=== PATIENT | male | born 1960 | race Caucasian/White ===

== ENCOUNTER 2025-06-22 10:18 | Inpatient (IN) | payer MEDICAID, SELFPAY ==
[2025-06-22] VITALS (7 sets, daily range): BP systolic 118–167; BP diastolic 72–87; PULSE 84–106; RESP 15–20; TEMP 36.9–38.2; O2SAT 95–100; BMI 37.3; BMI 36.9
--- NOTE | 2025-06-22 10:51 | ED.VIS.LOWEX ---
HPI History of Present Illness HPI Narrative: Patient presents with diabetic foot wound to his left great toe that has been getting worse over the past 2 weeks. Patient denies any trauma or injury. Patient saw his primary care physician today who referred him to the emergency department. They noted some redness to his great toe with streaking into his foot. Patient denies any fevers or chills. Patient states he has been having some drainage at the end of his left great toe. Patient states he was doing a lot of walking on vacation 2 weeks ago and developed a blister on the tip of his left great toe. Patient states he has been having some persistent drainage from this area. Patient admits to some tingling into his toe. Patient is unsure of his last tetanus. Chief Complaint: Wound Informant: patient Onset/Context/Timing Onset: Weeks (2) Context: Gradual Onset Timing: Continuous Quality of Pain: Burning Location: Left great toe Worsened by: Nothing Relieved by: Nothing Associated Symptoms Associated Symptoms: Positive for Parasthesia; Negative for Weakness or Loss of Funtion Narrative Tetanus Immunization: Unknown [facility] Medical History (Updated 06/22/25 @ 12:[address] Tommy Damon, ) Hypertension Diabetes Home Medications ?Medication ?Instructions ?Recorded ?Last Taken ?Type lisinopril 20 mg tablet 20 mg PO DAILY #30 tabs 07/01/17 Unknown Rx metformin 500 mg tablet 500 mg PO BID #60 tabs 07/01/17 Unknown Rx Allergy/AdvReac Type Severity Reaction Status Date / Time Penicillins (PCN) Allergy Rash Verified 06/22/25 10:21 Surgical History no surgical history no surgical history Social History Smoking Status: Never smoker ROS ROS ED Constitutional Constitutional ED: Denies chills or fever(s) Eyes Eyes: Denies blurry vision or change in vision ENT ENT ED: Reports sore throat; Denies rhinorrhea Cardiovascular Cardiovascular: Denies chest pain or palpitations Respiratory/Chest Respiratory/Chest: Reports cough; Denies dyspnea Gastrointestinal Gastrointestinal: Reports nausea; Denies vomiting Genitourinary Genitourinary ED: Denies dysuria or hematuria Musculoskeletal Musculoskeletal: Denies back pain or neck pain Integumentary Denies abscess or rash Neurologic Neurologic: Reports paresthesias LLE (Left foot); Denies headache(s) or weakness Allergic/Immunologic Allergic/Immunologic ED: Denies mouth swelling or urticaria EXAM Physical Exam Const Vital Signs: 06/22/25 10:19 06/22/25 11:20 06/22/25 12:00 Temperature 99.2 F H 98.6 F 98.4 F Temperature Source Temporal Oral Oral Pulse Rate 99 96 84 Respiratory Rate 20 H 18 20 H Blood Pressure 118/85 H 144/78 H 148/75 H Blood Pressure Mean 96 100 99 Pulse Ox 98 98 98 Oxygen Delivery Method Room Air Room Air Room Air Positive well nourished and well developed Constitutional Narrative: BMI is 37.3. General Appearance ED: well developed and NAD HEENT Reports moist mucous membranes Neck full ROM and supple Resp normal respiratory effort and clear to auscultation bilaterally Cardio regular rate and regular rhythm GI non-tender and non-distended Palpation: soft Extremity Extremity Narrative: There is an open wound over the distal aspect of the distal phalanx of the left great toe. There is erythema and warmth over the left great toe. There is no active discharge or drainage. There is tenderness to palpation of the distal phalanx. Sensation was intact to light touch in all digits. Capillary refill was less than 2 seconds in all digits. Pedal pulses are equal bilaterally. Neuro oriented x3, CN's II-XII intact bilaterally, moves all extremities and no sensory deficits noted Sensorium / Orientation: alert Motor Exam: strength 5/5 throughout Psych mental status grossly normal MDM MDM MDM Narrative Medical decision making narrative: Differential diagnosis includes cellulitis, diabetic foot wound, osteomyelitis, sepsis, and abscess. X-rays of the left foot will be obtained to assess for osteomyelitis. CBC will be obtained to assess for leukocytosis and anemia. Basic metabolic profile will be obtained to assess for electrolyte abnormality and renal function. Blood cultures will be obtained to assess for sepsis. Serum lactate will be obtained to assess for sepsis. History & Record Review Additional record(s) reviewed:: Prior ED visit Lab Data Attestation: I reviewed the patient's lab results. Lab results narrative: CBC was reviewed. There is a mild leukocytosis of 12.6. There is a slight anemia with a hemoglobin of 12.7 and hematocrit of 38.5. Basic metabolic profile was reviewed. BUN was slightly elevated at 33 and glucose was mildly elevated at 297. Sodium was slightly low at 131. The remainder is within normal limits. Serum lactate was reviewed and was elevated at 2.5. PT with INR and PTT were reviewed. Pro time was 15.2 and INR is 1.2. PTT was normal at 31.0. Labs: Laboratory Results - last 24 hr 06/22/25 11:36 WBC 12.6 H RBC 4.25 L Hgb 12.7 L Hct 38.5 L MCV 90.6 MCH 29.9 MCHC 33.0 RDW Std Deviation 42.3 RDW Coeff of Domenica 12.7 Plt Count 290 MPV 10.2 Immature Gran % (Auto) 0.500 Neut % (Auto) 80.5 H Lymph % (Auto) 12.0 L [place] % (Auto) 6.7 Eos % (Auto) 0.0 Baso % (Auto) 0.3 Absolute Neuts (auto) 10.1 H Absolute Lymphs (auto) 1.51 Nucleated RBC % 0 PT 15.2 H INR 1.2 APTT 31.0 Sodium 131 L Potassium 4.3 Chloride 93 L Carbon Dioxide 23.4 Anion Gap 14 BUN 33 H Creatinine 1.06 Estim Creat Clear Calc 98.58 Est GFR (MDRD) Non-Af 79 BUN/Creatinine Ratio 31.5 H Glucose 297 H Lactic Acid 2.5 H* Calcium 9.3 Radiography Diagnostic Testing: Clinical Impression(s) from Imaging Studies Foot X-Ray 06/22/25 11:06 IMPRESSION: No radiopaque foreign body is seen. Moderate arterial calcification is seen. On the lateral view, normal contour of the Achilles tendon is seen. A moderate inferior calcaneal spur is noted. [id number] degenerative changes of the visualized ankle joint noted. Mild degenerative changes are seen throughout the midfoot, as well as the 1st and especially 2nd tarsal-metatarsal joints. On the oblique view, there is a suggestion of fusion of the 3rd cuneiform with the 3rd metatarsal bone. Forefoot varus is seen. Szfr-rz-mswsmite degenerative changes are seen of the left 1st metatarsophalangeal joint, without significant hallux valgus deformity. No osseous destructive changes noted. No fracture or dislocation is seen. If clinical concern persists, short-term follow-up imaging may be obtained to rule out a currently occult fracture. Reading Location: [id number] X-rays of the left foot were obtained. There are 3 views. On my independent interpretation, there are some degenerative changes of the distal phalanx of the left great toe. There is no acute fracture or dislocation noted. There are other degenerative changes noted. This was interpreted by the radiologist was also independently reviewed by myself. Management Discussion w/another healthcare provider: Hospitalist Treatment and Re-Evaluation Narrative: Patient was given IV fluids. Patient was given a dose of meropenem and vancomycin due to his allergy to penicillin. Patient was advised of his findings. Recommended admission to the hospital. Patient is agreeable with this. Case was discussed with the hospitalist. He will admit the patient to his service. Patient understood and was agreeable with the plan. All questions were answered. Discharge Plan Triage Chief Complaint: Wound ED Provider: Tommy Damon Dx/Rx/DC Orders Clinical Impression: Diabetic foot ulcer, Diabetes, Hypertension, Lactic acidosis Prescriptions: No Action metformin 500 MG tablet 500 mg PO BID Qty: 60 0RF lisinopril 20 MG tablet 20 mg PO DAILY Qty: 30 0RF Primary Care Provider: Jorge Maria Referrals: Care Physician,No Primary [Non-Staff] - Print Language: Hebrew Disposition Disposition: Acute Care Hospital [facility]
--- NOTE | 2025-06-22 11:06 | RAD_ITS ---
PROCEDURE: FOOT MIN 3 VIEWS 06/22/2025 REASON FOR EXAM: PAIN. Injury, with redness, pain, and drainage. TECHNIQUE: FOOT MIN 3 VIEWS COMPARISON: None. RAD/Foot min 3 Views IMPRESSION: No radiopaque foreign body is seen. Moderate arterial calcification is seen. On the lateral view, normal contour of the Achilles tendon is seen. A moderate inferior calcaneal spur is noted. Jtdd-[id number] degenerative changes of the visualized ankle joint noted. Mild degenerative changes are seen throughout the midfoot, as well as the 1st a nd especially 2nd tarsal-metatarsal joints. On the oblique view, there is a suggestion of fusion of the 3rd cuneiform with the 3rd metatarsal bone. Forefoot varus is seen. Uhqe-jk-mlgnkavp degenerative changes are seen of the left 1st metatarsophalang eal joint, without significant hallux valgus deformity. No osseous destructive changes noted. No fracture or dislocation is seen. If clinical concern persists, short-term follow-up imaging may be obtained to r ule out a currently occult fracture. Reading Location: [facility]
[2025-06-22] MEDS: 0.9% Normal Saline (1000mL) 1,000 ML 1000 ML IV (11:39)
[2025-06-22] MEDS: Vancomycin HCl 2,000 MG in 0.9% Normal Saline (500mL Bag) 500 ML 250 MG IV (11:42)
[2025-06-22 11:50] LABS: Hematocrit 38.5 % (40-54); Hemoglobin 12.7 g/dL (13.0-16.5); Immature Granulocytes Count 0.060 X10^3/uL (0.0-0.0); Mean Corp Hgb Conc 33.0 g/dL (32-36); Mean Corpuscular Volume 90.6 fL (80-94); Mean Platelet Vol. 10.2 fl (6.2-12.0); NRBC Flagged by Analyzer 0 % (0-5); Platelet Count 290 K/mm3 (150-450); RBC Distribution Width CV 12.7 % (11.6-14.6); RBC Distribution Width SD 42.3 fl (35.1-43.9); Red Blood Count 4.25 M/mm3 (4.6-6.2); White Blood Count 12.6 K/mm3 (4.4-11.0)
[2025-06-22 12:02] LABS: Prothrombin Time (Protime)PT. 15.2 SECONDS (11.7-14.9)
[2025-06-22 12:03] LABS: Partial Thromboplast Time 31.0 Seconds (24.1-36.2)
[2025-06-22 12:08] LABS: Anion Gap 14 (5-15); BUN 33 mg/dL (4-19); BUN/Creat Ratio 31.5 RATIO (10-20); Calcium,Total 9.3 mg/dL (7.6-11.0); Carbon Dioxide 23.4 mmol/L (21.0-32.0); Chloride 93 mmol/L (98-108); Estimated Creatinine Clearance 98.58 ml/min (50-250); Glucose 297 mg/dL (70-99); Potassium 4.3 mmol/L (3.3-5.1)
--- NOTE | 2025-06-22 12:59 | ED.RN ---
dr combs notified of Sepsis alert d/t lactic of 2.5
--- NOTE | 2025-06-22 13:40 | PCM.HP.STD ---
HPI - General General Date of Admission: 06/22/25 Date of Service: 06/22/25 Chief Complaint: Foot wound HPI Narrative RUBEN FBAIAN, is a 64 M who presents to the emergency room with a foot wound. About a month or so ago, patient was on vacation and walking on the beach. He has neuropathy so does not recall any instance where he injured his foot but when he came home he noticed a big blister on the distal aspect of his left great toe. Eventually did unroofed and it bled. He has been caring for it but is been having very serous drainage. He had made an appointment with his PCP last week and he saw them today and they sent him to the emergency room. Patient had an x-ray that showed no acute process but the patient did receive vancomycin and meropenem. Patient notes that his left toe has gotten more red over the past week. [facility] Medical History Neuropathy Hypertension Diabetes Home Medications ?Medication ?Instructions ?Recorded ?Last Taken ?Type lisinopril 20 mg tablet 20 mg PO DAILY blood pressure #30 07/01/17 Unknown Rx tabs metformin 500 mg tablet 500 mg PO BID blood sugar #60 tabs 07/01/17 Unknown Rx amlodipine 5 mg tablet 5 mg PO DAILY blood pressure 06/22/25 Unknown History atorvastatin 40 mg tablet 40 mg PO DAILY cholesterol 06/22/25 Unknown History dulaglutide 3 mg/0.5 mL 3 mg subcut QWEEK blood sugar 06/22/25 Unknown History subcutaneous pen injector (Trulicity) glimepiride 4 mg tablet 4 mg PO DAILY blood pressure 06/22/25 Unknown History hydrochlorothiazide 25 mg tablet 25 mg PO DAILY blood pressure 06/22/25 Unknown History metoprolol succinate 100 mg 100 mg PO DAILY blood pressure 06/22/25 Unknown History tablet,extended release 24 hr Allergy/AdvReac Type Severity Reaction Status Date / Time Penicillins (PCN) Allergy Rash Verified 06/22/25 10:21 Family History (Updated 06/22/25 @ 13:[address] Tommy Worthy DO) Other Diabetes Surgical History no surgical history Social History Smoking Status: Never smoker ROS ROS Narrative All review of systems were negative except as mentioned above in the history of present illness and the other review of systems. Vital Signs Vital Signs Vital Signs: 06/22/25 10:19 06/22/25 11:20 06/22/25 12:00 Temperature 37.3 C H 37.0 C 36.9 C Temperature Source Temporal Oral Oral Pulse Rate 99 96 84 Respiratory Rate 20 H 18 20 H Blood Pressure 118/85 H 144/78 H 148/75 H Blood Pressure Mean 96 100 99 Pulse Ox 98 98 98 Oxygen Delivery Method Room Air Room Air Room Air 06/22/25 13:28 Temperature 36.9 C Temperature Source Pulse Rate 97 Respiratory Rate 15 Blood Pressure 138/72 H Blood Pressure Mean 94 Pulse Ox 95 Oxygen Delivery Method Weight Weight: 124.738 kg Body Mass Index (BMI) 37.3 Physical Exam Narrative - Physical Exam General: Alert, Oriented x3, Cooperative HEENT: Atraumatic, PERRLA, EOMI, Normocephalic Oral: Moist Mucosa, No Gingival or Mucosal Lesions/ Ulcerations Neck: Supple, No JVD, Negative Carotid Bruits Lungs: Clear to auscultation, Normal air movement Cardiovascular: Regular rate, Normal S1, Normal S2, No murmurs Abdomen: Bowel Sounds Present, Soft, Non Tender, Non-Distended, No Hepato-splenomegaly Extremities: No clubbing, No cyanosis, No edema, Capillary Refill Less than 3 Seconds Skin: Eschar over the distal left great toe. Thickening of the toenails throughout. Does have erythema extending up his left toe but no lymphangitis noted. Musculoskeletal: No Tenderness to Palpation of Joints or Extremities Neurological: Neuro grossly intact Psych/Mental Status: Normal Affect, Appropriate Results Lab / Micro Data Attestation: I reviewed the patient's lab results. 06/22/25 11:36 06/22/25 11:36 Labs: Laboratory Results - last 24 hr 06/22/25 11:36: WBC 12.6 H, RBC 4.25 L, Hgb 12.7 L, Hct 38.5 L, MCV 90.6, MCH 29.9, MCHC 33.0, RDW Std Deviation 42.3, RDW Coeff of Domenica 12.7, Plt Count 290, MPV 10.2, Immature Gran % (Auto) 0.500, Neut % (Auto) 80.5 H, Lymph % (Auto) 12.0 L, [place] % (Auto) 6.7, Eos % (Auto) 0.0, Baso % (Auto) 0.3, Absolute Neuts (auto) 10.1 H, Absolute Lymphs (auto) 1.51, Nucleated RBC % 0, PT 15.2 H, INR 1.2, APTT 31.0, Sodium 131 L, Potassium 4.3, Chloride 93 L, Carbon Dioxide 23.4, Anion Gap 14, BUN 33 H, Creatinine 1.06, Estim Creat Clear Calc 98.58, Est GFR (MDRD) Non-Af 79, BUN/Creatinine Ratio 31.5 H, Glucose 297 H, Lactic Acid 2.5 H*, Calcium 9.3 Imaging Radiology Impression Foot X-Ray 06/22/25 11:06 IMPRESSION: No radiopaque foreign body is seen. Moderate arterial calcification is seen. On the lateral view, normal contour of the Achilles tendon is seen. A moderate inferior calcaneal spur is noted. [id number]-dq-[id number] degenerative changes of the visualized ankle joint noted. Mild degenerative changes are seen throughout the midfoot, as well as the 1st and especially 2nd tarsal-metatarsal joints. On the oblique view, there is a suggestion of fusion of the 3rd cuneiform with the 3rd metatarsal bone. Forefoot varus is seen. Wuqx-ss-[id number] degenerative changes are seen of the left 1st metatarsophalangeal joint, without significant hallux valgus deformity. No osseous destructive changes noted. No fracture or dislocation is seen. If clinical concern persists, short-term follow-up imaging may be obtained to rule out a currently occult fracture. Reading Location: [facility] Assessment & Plan Assessment/Plan (1) Diabetic foot ulcer: PLAN: Onset was about 3 weeks ago and has not completely healed though he does have an eschar/scab over his distal left toe. Will check an MRI to evaluate for any osteomyelitis Continue antibiotics with vancomycin and meropenem (patient has a penicillin allergy) Check wound culture Patient states that he has a mixing picker tender associated with [facility]. He does not recall that individual's name. I went through [employer] and using the patient's name and Social Security number and there was no matches found. Informed the patient that I was unable to find the name of the mixing picker tender that he is seen through [facility]. Sensors no urgency recommended that when someone goes home if they could let us know who his mixing picker tender is to see if they can be available to evaluate the patient. PLAN: Plan Diabetes mellitus type 2, sign scale insulin. Check an A1c. Continue with glimepiride and metformin Hypertension: Continue with HCTZ, amlodipine, metoprolol succinate and lisinopril. VTE prophylaxis with enoxaparin Charges/Coding Visit Charges Inpatient E&M: 35938 Init Hosp L2
[2025-06-22] MEDS: Meropenem 1 GM in 0.9% Normal Saline (100mL MB+) 100 ML IV ×2 (13:53→21:24)
--- NOTE | 2025-06-22 14:17 | MRI_ITS ---
PROCEDURE: LOWER EXT NO JOINT W/WO CONT 06/22/2025 REASON FOR EXAM: LEFT FOOT DIABETIC WOUND TECHNIQUE: LOWER EXT NO JOINT W/WO CONT CONTRAST: Clariscan VOLUME: 27 mL COMPARISON: Radiographs on 06/22/2025. FINDINGS: Soft tissue ulcer overlying the distal aspect of the distal phalanx of the big toe. Prominent underlying enhancing soft tissue edema and swelling suggestive of cellulitis. Underlying enhancing bone marrow edema of the tip of the distal phalanx of the big toe, probably osteomyelitis. No drainable abscess formation. Diffuse edema of the metatarsal muscles, probably infectious myositis without drainable intramuscular abscess formation. There is normal signal intensity from the remaining visualized bone marrow. There is no evidence of bone marrow infiltration or acute fracture. Moderate degenerative joint disease of the metatarsophalangeal joint of the hallux is unremarkable. Normal tibial and fibular sesamoids, with degenerative joint disease of the sesamoids-first metatarsal articulations. No abnormality is identified in the interphalangeal joint of the hallux. Unremarkable proximal and distal phalanges of the great toe. Unremarkable medial and lateral heads of the flexor hallucis brevis tendons. No abnormality is seen in flexor and extensor hallucis longus tendons. Moderate degenerative joint disease of the second through fifth metatarsophalangeal (MTP) joints. Moderate degenerative joint disease of the proximal interphalangeal (PIP) and distal interphalangeal (DIP) joints of the second through fifth toes. Unremarkable proximal, middle and distal phalanges of the second through fifth toes. No abnormality is identified in the flexor and extensor tendons of the second through fifth toes. Normal first through fourth intermetatarsal spaces. No abnormalities identified in the metatarsal bones. MRI/Lower Ext No Joint W/WO Cont IMPRESSION: Soft tissue ulcer overlying the distal aspect of the distal phalanx of the big toe. Prominent underlying enhancing soft tissue edema and swelling suggestive of poli lulitis. Underlying enhancing bone marrow edema of the tip of the distal phalanx of the big toe, probably osteomyelitis. No drainable abscess formation. Diffuse edema of the metatarsal muscles, probably infectious myositis without d rainable intramuscular abscess formation. Reading [facility]
--- NOTE | 2025-06-22 14:35 | PCM.RX.CS ---
Consult Antibiotic Management Pharmacy has been consulted to manage selected antibiotic: Vancomycin Type of Intervention Type of Consult: New start Suspected Infection Suspected Infection: Skin/Soft tissue Prior Doses of Antibiotics Prior Doses of Antibiotics Received/Current Regimen: received vanc 2000mg IV x1 in E.R. starting at 11:42 today Labs Labs: Sodium 131 mmol/L (133-145) L 06/22/25 11:36 Potassium 4.3 mmol/L (3.3-5.1) 06/22/25 11:36 Chloride 93 mmol/L (98-108) L 06/22/25 11:36 Carbon Dioxide 23.4 mmol/L (21.0-32.0) 06/22/25 11:36 Anion Gap 14 (5-15) 06/22/25 11:36 BUN 33 mg/dL (4-19) H 06/22/25 11:36 Creatinine 1.06 mg/dL (0.70-1.20) 06/22/25 11:36 Est GFR (MDRD) Non-Af 79 (>60) 06/22/25 11:36 BUN/Creatinine Ratio 31.5 RATIO (10-20) H 06/22/25 11:36 Glucose 297 mg/dL (70-99) H 06/22/25 11:36 Dosing Weight Weight used for dosin.7 kg Estimated Creatinine Clearance Estimated Creatinine Clearance: 99 ml/min Goal Trough Goal Trough: 15-20 mcg/mL Pharmacy Plan for Drug Dosing Pharmacy Plan for Drug Dosing: Starting 12 hours after the E.R. dose, continue with 2000mg IV q12h (went one step down on the dosing chart in order to give a dose at the 12 hour interval as opposed to dosing at an 8 hour interval since the patient is 64 years old). Will check a trough before the 4th total dose. Pharmacy Service will continue to monitor and adjust dosing as required. Follow-Up Labs Follow-Up Labs: Trough: Vancomycin Date/Time Labs Ordered Labs to be done on [date and time ordered]: 06/23/25 23:30
[2025-06-22] MEDS: 0.9% Saline Lock 10 ML Syringe IV ×2 (15:02→21:24)
--- NOTE | 2025-06-22 15:28 | WOUNDNOTE ---
wound photo: left great toe
--- NOTE | 2025-06-22 15:29 | NUR.TO.PHY ---
skin photo: left great toe
[2025-06-22 15:44] LABS: Reflex Lactate? Y
[2025-06-22 15:54] LABS: CRP 110.00 mg/L (0.0-3.0)
--- OUTSIDE RECORDS SUMMARY | 2025-06-22 18:42 | XMS RPT_ITS | CCD ---
Author Organization [facility] Care Team Providers Care Women'S Activities Adviser Name Role Phone Primay Care Physicia, No Unavailable Unavail able WILLIS ALVARENGA Unavailable Unavailable Jorge Maria MD Primary Care Provider Jorge Maria MD Primary Care Provider Jorge Maria MD Primary Care Provider Jorge Maria MD Primary Care Provider Haagen TEST EXAMINER.HAYLEE Nichole Unavailable Suppan TEST EXAMINER.WATER RESOURCE ENGINEERING SPECIALIST, Esthela A Unavailable [phone] Suppan TEST EXAMINER.WATER RESOURCE ENGINEERING SPECIALIST, Esthela A Unavailable JORGE MARIA Primary Care Unavailable JORGE MARIA Attending Unavailable JORGE MARIA Primary Care Unavailable JORGE MARIA Referring Unavailable DOMITILA LIMA Attending Unavailable JORGE MARIA Referring Unavailable JORGE MARIA Primary Care Unavailable Dr. Tommy Damon DO Emergency Provider [phone] Dr. Jorge Maria MD Primary Care Provider [phone] Dr. Tommy Worthy DO Admit Provider Dr. Tommy Worthy DO Attending Provider Dr. Tommy Worthy DO Other Provider Allergies Allergy Classification Reported Allergen(s) Allergy Type Date of Onset Reaction(s) Facility (3 sources) Penicillins; Translations: [PENICILLINS] Drug allergy (disorder) 07-01-2017 [facility] (2 sources) Penicillins Drug Allergy 05-31-2021 [facility] (18 sources) Penicillins Drug Allergy 05-31-2021 [facility] (8 sources) Penicillins Drug Allergy 05-31-2021 [facility] (1 source) Penicillins Allergy to substance 06-22-2025 [facility] Medications Current Medications Medication Drug Class(es) Dates Sig (Normalized) Sig (Original) amLODIPine 5 mg oral tablet (20 sources) Dihydropyridine Calcium Channel Karon Start: 10-18-2023 End: 12-29-2025 take 1 tablet by mouth once daily amLODIPine (NORVASC) 5 mg tablet Indications: Hypertension, essential Take 1 tablet by mouth once daily. 90 tablet 3 12/29/2024 12/29/2025 Active Start: 02-01-2023 End: 02-01-2024 take 1 tablet by mouth once daily amLODIPine (NORVASC) 10 mg tablet Indications: Hypertension, essential Take 1 tablet by mouth once daily. 90 tablet 3 02/01/2023 02/01/2024 Active Start: 01-01-2022 End: 02-01-2023 take 1 tablet by mouth once daily amLODIPine (NORVASC) 5 mg tablet Indications: Hypertension, essential Take 1 tablet by mouth once daily. 90 tablet 3 02/01/2023 02/01/2023 Discontinued Start: 05-31-2021 End: 12-29-2021 take 1 tablet by mouth once daily amLODIPine (NORVASC) 5 mg tablet Indications: Hypertension, essential Take 1 tablet by mouth once daily. 90 tablet 1 05/31/2021 12/29/2021 Discontinued Comment on above: Take 1 tablet by karie th once daily. atorvastatin 40 mg oral tablet (20 sources) HMG-CoA Reductase Inhibitor Start: 01-15-20 End: 04-19-20 take 1 tablet by mouth once daily for hyperlipidemia atorvastatin (LIPITOR) 40 mg tablet Indications: Hyperlipidemia, mixed Take 1 tablet by mouth once daily. For cholesterol. 90 tablet 3 04/19/2025 04/19/2026 Active Start: 05-31-2021 End: 01-15-2022 take 1 tablet by mouth once daily for hyperlipidemia, then take 1 tablet by mouth once daily at bedtime for hyperlipidemia atorvastatin (LIPITOR) 20 mg tablet Indications: Hyperlipidemia, mixed Take 1 tablet by mouth once daily. Take 1 tablet by mouth daily at bedtime. For cholesterol. 90 tablet 1 05/31/2021 01/15/2022 Discontinued Comment on above: Take 1 tablet by karie th once daily. Take 1 tablet by mouth daily at bedtime. For cholesterol. Take 1 tablet by karie th once daily. For cholesterol. benzonatate 100 mg oral capsule (19 sources) Non-narcotic Antitussive Start: 08-03-20 End: 12-29-19 25 take 2 capsules by mouth every twelve hours as needed for cough and cough benzonatate (TESSALON PERLES) 100 mg capsule Indications: Cough Take 2 capsules by mouth twice daily as needed for cough. 40 capsule 09/01/2021 12/29/2024 Discontinued (Other) Comment on above: Take 2 capsules by [facility] twice daily as needed for cough. doxycycline monohydrate 100 mg oral tablet (1 source) Tetracycline-class Drug Start: 10-18-20 End: 10-28-20 take 1 tablet by mouth twice daily doxycycline monohydrate 100 mg tablet Indications: Cellulitis of skin Take 1 tablet by mouth two times a day for 10 days. 20 tablet 0 10/18/2023 10/28/2023 Active Comment on above: Take 1 tablet by karie th two times a day for 10 days. Dulaglutide (9 sources) GLP-1 Receptor Agonist Start: 06-22-20 25 Dulaglutide (Trulicity) 3 mg/0.5 mL pen injector Active 3 mg SC EVERY WEEK June 22, 2025 12:00am blood sugar Start: 02-01-2023 End: 02-01-2024 dulaglutide (TRULICITY) 1.5 mg/0.5 mL pen injector Indications: Type 2 diabetes mellitus without complication, without long-term current use of insulin (HCC) Inject 1.5 mg subcutaneously one time a week. Inject once per week. Discard Pen After 2 mL 02/01/2023 12/20/2023 Discontinued Start: 11-13-2022 End: 11-13-2023 inject 0.75 mg by subcutaneous injection every week dulaglutide (TRULICITY) 0.75 mg/0.5 mL pen injector Indications: Type 2 diabetes mellitus without complication, without long-term current use of insulin (HCC) Inject 0.75 mg subcutaneously one time a week. Inject dose once per week. Discard Pen After 2 mL 11/13/2022 02/01/2023 Discontinued Comment on above: Inject 0.75 mg subcu taneously one time a week. Inject dose once per week. Discard Pen After Inject 1.5 mg subcut aneously one time a week. Inject once per week. Discard Pen After dulaglutide (TRULICITY) 3 mg/0.5 mL pen injector (20 sources) Start: 01-27-2025 End: 01-27-2026 dulaglutide (TRULICITY) 3 mg/0.5 mL pen injector Indications: Type 2 diabetes mellitus without complication, without long-term current use of insulin (HCC) Inject 3 mg subcutaneously one time a week. Inject once per week. Discard Pen After 6 mL 3 01/27/2025 01/27/2026 Active Start: 01-26-2025 End: 01-27-2025 dulaglutide (TRULICITY) 3 mg /0.5 mL pen injector Indications: Type 2 diabetes mellitus without complication, without long-term current use of insulin (HCC) Inject 3 mg subcutaneously one time a week. Inject once per week. Discard Pen After 6 mL 3 01/26/2025 01/27/2025 Discontinued Start: 12-29-2024 End: 01-26-2025 dulaglutide (TRULICITY) 3 mg /0.5 mL pen injector Indications: Type 2 diabetes mellitus without complication, without long-term current use of insulin (HCC) Inject 3 mg subcutaneously one time a week. Inject once per week. Discard Pen After 6 mL 3 12/29/2024 01/26/2025 Discontinued Start: 12-29-2024 End: 12-29-2025 dulaglutide (TRULICITY) 3 mg /0.5 mL pen injector Indications: Type 2 diabetes mellitus without complication, without long-term current use of insulin (HCC) Inject 3 mg subcutaneously one time a week. Inject once per week. Discard Pen After 6 mL 3 12/29/2024 12/29/2025 Active Start: 12-20-2023 End: 12-29-2024 dulaglutide (TRULICITY) 3 mg /0.5 mL pen injector Indications: Type 2 diabetes mellitus without complication, without long-term current use of insulin (HCC) Inject 3 mg subcutaneously one time a week. Inject once per week. Discard Pen After 2 mL 11 12/20/2023 12/29/2024 Discontinued Start: 12-20-2023 End: 12-19-2024 dulaglutide (TRULICITY) 3 mg /0.5 mL pen injector Indications: Type 2 diabetes mellitus without complication, without long-term current use of insulin (HCC) Inject 3 mg subcutaneously one time a week. Inject once per week. Discard Pen After 2 mL 11 12/20/2023 12/19/2024 Active Comment on above: Inject 3 mg subcutan eously one time a week. Inject once per week. Discard Pen After flash glucose scanning reader (FREESTYLE LYDIA 14 DAY READER) (20 sources) Start: 12-26-2022 flash glucose scanning reader (FREESTYLE LYDIA 14 DAY READER) 1 Each four times daily. 1 Each 12/26/2022 Active Start: 12-26-2022 flash glucose scanning reader (FREESTYLE LYDIA 14 DAY READER) 1 Each four times daily. 1 Each 0 12/26/2022 Active Comment on above: 1 Each four times da christiano. flash glucose sensor (FREESTYLE LYDIA 14 DAY SENSOR) kit (20 sources) Start: 03-29-2025 flash glucose sensor (FREESTYLE LYDIA 14 DAY SENSOR) kit Indications: Type 2 diabetes mellitus without complication, without long-term current use of insulin (HCC) 1 each four times daily. 2 kit 03/29/2025 Active Start: 01-01-2024 End: 03-29-2025 flash glucose sensor (FREEST YLE LYDIA 14 DAY SENSOR) kit Indications: Type 2 diabetes mellitus without complication, without long-term current use of insulin (HCC) 1 Each four times daily. 2 Kit 01/01/2024 03/29/2025 Discontinued Start: 01-01-2024 flash glucose sensor (FREESTYLE LYDIA 14 DAY SENSOR) kit Indications: Type 2 diabetes mellitus without complication, without long-term current use of insulin (HCC) 1 Each four times daily. 2 Kit 01/01/2024 Active Start: 12-26-2022 End: 01-01-2024 flash glucose sensor (FREEST YLE LYDIA 14 DAY SENSOR) kit Indications: Type 2 diabetes mellitus without complication, without long-term current use of insulin (HCC) 1 Each four times daily. 2 Kit 12/26/2022 01/01/2024 Discontinued Start: 12-26-2022 flash glucose sensor (FREESTYLE LYDIA 14 DAY SENSOR) kit Indications: Type 2 diabetes mellitus without complication, without long-term current use of insulin (HCC) 1 Each four times daily. 2 Kit 11 12/26/2022 Active Start: 05-31-2021 End: 12-25-2022 flash glucose sensor (FREEST YLE LYDIA 14 DAY SENSOR) kit Indications: Type 2 diabetes mellitus without complication, without long-term current use of insulin (HCC) 1 Each four times daily. 2 Kit 11 05/31/2021 12/25/2022 Discontinued Start: 05-31-2021 flash glucose sensor (FREESTYLE LYDIA 14 DAY SENSOR) kit Indications: Type 2 diabetes mellitus without complication, without long-term current use of insulin (HCC) 1 Each four times daily. 2 Kit 05/31/2021 Active Comment on above: 1 Each four times da christiano. glimepiride 4 mg oral tablet (20 sources) Sulfonylurea Start: 10-18-20 End: 12-29-19 take 1 tablet by mouth once daily at breakfast glimepiride (AMARYL) 4 mg tablet Indications: Type 2 diabetes mellitus without complication, without long-term current use of insulin (HCC) Take 1 tablet by mouth daily with breakfast. 90 tablet 3 12/29/2024 12/29/2025 Active Start: 09-01-2021 End: 08-15-2023 take 1 tablet by mouth once daily at breakfast glimepiride (AMARYL) 4 mg tablet Indications: Type 2 diabetes mellitus without complication, without long-term current use of insulin (HCC) Take 1 tablet by mouth daily with breakfast. 30 tablet 11 08/15/2022 Active Start: 05-31-2021 End: 09-01-2021 take 1 tablet by mouth once daily at breakfast glimepiride (AMARYL) 2 mg tablet Indications: Type 2 diabetes mellitus without complication, without long-term current use of insulin (HCC) Take 1 tablet by mouth daily with breakfast. 90 tablet 1 05/31/2021 09/01/2021 Discontinued Comment on above: Take 1 tablet by karie th daily with breakfast. hydroCHLOROthiazide 25 mg oral tablet (20 sources) Thiazide Diuretic Start: 2021 End: 2025 take 1 tablet by mouth once daily hydroCHLOROthiazide 25 mg tablet Indications: Hypertension, essential Take 1 tablet by mouth once daily. 90 tablet 3 04/19/2025 04/19/2026 Active Start: 05-31-2021 End: 01-26-2022 take 1 capsule by mouth once daily hydroCHLOROthiazide 12.5 mg capsule Indications: Type 2 diabetes mellitus without complication, without long-term current use of insulin (HCC) Take 1 capsule by mouth once daily. 30 capsule 12 05/31/2021 01/26/2022 Discontinued Comment on above: Take 1 tablet by karie th once daily. lisinopril 40 mg oral tablet (20 sources) Angiotensin Converting Enzyme Inhibitor Start: 01-01-2022 End: 12-29-2025 take 1 tablet by mouth once daily lisinopril (ZESTRIL) 40 mg tablet Indications: Hypertension, essential Take 1 tablet by mouth once daily. 90 tablet 3 12/29/2024 12/29/2025 Active Start: 05-31-2021 End: 12-29-2021 take 1 tablet by mouth once daily lisinopril (ZESTRIL, PRINIVIL) 40 mg tablet Indications: Hypertension, essential Take 1 tablet by mouth once daily. 90 tablet 1 05/31/2021 12/29/2021 Discontinued Start: 07-01-2017 take 1 tablet by karie th once daily Lisinopril 20 MG tablet Active 20 mg PO DAILY 30 July 01, 2017 12:00am blood pressure Comment on above: Take 1 tablet by karie th once daily. metFORMIN hydrochloride 500 mg oral tablet (20 sources) Biguanide Start: End: take 2 tablets by mouth twice daily at mealtime metFORMIN (GLUCOPHAGE) 500 mg tablet Indications: Type 2 diabetes mellitus without complication, without long-term current use of insulin (HCC) TAKE TWO TABLETS BY MOUTH TWICE DAILY WITH MEALS 360 tablet 3 03/02/2025 Active Start: 05-31-2021 End: 12-29-2021 take 2 tablets by mouth twice daily at mealtime metFORMIN (GLUCOPHAGE) 500 mg tablet Indications: Type 2 diabetes mellitus without complication, without long-term current use of insulin (HCC) TAKE TWO TABLETS BY MOUTH TWICE DAILY WITH MEALS 360 tablet 1 05/31/2021 12/29/2021 Discontinued Start: 07-01-2017 take 1 tablet by karie th twice daily Metformin 500 MG tablet Active 500 mg PO TWICE A DAY 60 0 July 01, 2017 12:00am blood sugar Comment on above: TAKE TWO TABLETS BY MOUTH TWICE DAILY WITH MEALS 24 hr metoprolol succinate 100 mg extended release oral tablet (20 sources) beta-Adrenergic Karon Start: 12-20-2023 End: 12-29-2025 take 1 tablet by mouth once daily metoprolol succinate ER (TOPROL XL) 100 mg Indications: Hypertension, essential Take 1 tablet by mouth once daily. 90 tablet 3 12/29/2024 12/29/2025 Active Start: 10-23-2023 End: 10-22-2024 take 1 tablet by mouth once daily metoprolol succinate ER (TOPROL XL) 50 mg 24 hr tablet Indications: Hypertension, essential Take 1 tablet by mouth once daily. 90 tablet 3 10/23/2023 12/20/2023 Discontinued Start: 10-18-2023 End: 10-23-2023 take 1 tablet by mouth once daily metoprolol succinate ER (TOPROL XL) 25 mg 24 hr tablet Indications: Hypertension, essential Take 1 tablet by mouth once daily. 90 tablet 3 10/18/2023 10/23/2023 Discontinued Comment on above: Take 1 tablet by karie th once daily. urea 400 mg/ml topical cream (7 sources) Start: 03-01-2025 urea (CARMOL) 40 % Apply to affected area once daily. 198 g 5 03/01/2025 Active Completed/Discontinued Medications Medication Drug Class(es) Dates Sig (Normalized) Sig (Original) [id number] 200 actuat albuterol 0.09 mg/actuat metered dose inhaler (11 sources) beta2-Adrenergic Agonist Start: 07-25-2021 End: 12-20-2023 take 2 puff(s) by inhalation every four hours as needed for wheezing albuterol HFA (VENTOLIN HFA) 90 mcg/actuation inhaler Inhale 2 Puffs as instructed every 4 hours as needed for wheezing/shortness of breath. 18 g 07/25/2021 12/20/2023 Discontinued Comment on above: Inhale 2 Puffs as in structed every 4 hours as needed for wheezing/shortness of breath. flash glucose scanning reader (FREESTYLE LYDIA 14 DAY READER) misc (7 sources) Start: 12-18-2019 End: 12-25-2022 flash glucose scanning reader (FREESTYLE LYDIA 14 DAY READER) misc 1 Each four times daily. 1 Each 12/18/2019 12/25/2022 Discontinued Start: 12-18-2019 End: 12-25-2022 flash glucose scanning reade r (FREESTYLE LYDIA 14 DAY READER) misc 1 Each four times daily. 1 Each 0 12/18/2019 12/25/2022 Discontinued Start: 12-18-2019 flash glucose scanning reader (FREESTYLE LYDIA 14 DAY READER) misc 1 Each four times daily. 1 Each 0 12/18/2019 Active Comment on above: 1 Each four times da christiano. 0.25 mg, 0.5 mg dose 1.5 ml semaglutide 1.34 mg/ml pen injector (3 sources) Start: 10-19-2022 End: 11-13-2022 semaglutide (OZEMPIC) 0.25 mg or 0.5 mg(2 mg/1.5 mL) pen Indications: Type 2 diabetes mellitus without complication, without long-term current use of insulin ([facility]) , Microalbuminuria Inject 0.5 mg subcutaneously one time a week. 2 mL 8 10/19/2022 11/13/2022 Discontinued Start: 01-26-2022 End: 01-26-2023 semaglutide (OZEMPIC) 0.25 m g or 0.5 mg(2 mg/1.5 mL) pen injector Indications: Type 2 diabetes mellitus without complication, without long-term current use of insulin ([facility]) , Microalbuminuria Inject 0.25 mg subcutaneously one time a week. 1 mL 8 01/26/2022 01/26/2023 Active Comment on above: Inject 0.25 mg subcu taneously one time a week. Inject 0.5 mg subcut aneously one time a week. SITagliptin 100 mg oral tablet (2 sources) Dipeptidyl Peptidase 4 Inhibitor Start: 05-31-20 21 End: 12-29-19 22 take 1 tablet by mouth once daily SITagliptin (JANUVIA) 100 mg tablet Indications: Type 2 diabetes mellitus without complication, without long-term current use of insulin ([facility]) Take 1 tablet by mouth once daily. 90 tablet 1 05/31/2021 12/29/2021 Discontinued Problems Active Problems Problem Classification Problem Date Documented Date Episodic/Chronic Diabetes mellitus with complications (4 sources) Polyneuropathy due to diabetes mellitus; Translations: [Diabetes mellitus due to underlying condition with diabetic polyneuropathy] 03-01-2025 Chronic Diabetes mellitus without complication (20 sources) Type 2 diabetes mellitus without complications; Translations: [Type 2 diabetes mellitus without complication] Onset: 07-08-2017 08-03-2021 Chronic Diseases of white blood cells (2 sources) Leukocytosis; Translations: [Elevated white blood cell count, unspecified] Chronic Disorders of lipid metabolism (20 sources) Mixed hyperlipidemia; Translations: [Mixed hyperlipidemia] Onset: 07-09-2017 07-09-2017 Chronic Essential hypertension (20 sources) Essential (primary) hypertension; Translations: [Essential hypertension] Onset: 07-08-2017 Chronic Fluid and electrolyte disorders (1 source) Lactic acidosis; Translations: [Lactic acidosis] 06-22-2025 Episodic Heart valve disorders (1 source) Aortic stenosis, non-rheumatic ; Translations: [Nonrheumatic aortic (valve) stenosis] 12-29-2024 Chronic Heart valve disorders (1 source) Heart murmur; Translations: [Cardiac murmur, unspecified] 12-20-2023 Episodic Immunizations and screening for infectious disease (6 sources) Patient encounter status; Translations: [Encounter for screening for human immunodeficiency virus [HIV]] Episodic Mycoses (4 sources) Onychomycosis; Translations: [Tinea unguium] Onset: 03-01-2025 12-29-2024 Episodic Open wounds of extremities (1 source) Open wound of left great toe; Translations: [Unspecified open wound of left great toe without damage to nail, initial encounter] 06-22-2025 Episodic Other circulatory disease (1 source) Abnormal peripheral pulse; Translations: [Other specified symptoms and signs involving the circulatory and respiratory systems] 03-01-2025 Episodic Other connective tissue disease (1 source) Pain of toe of left foot; Translations: [Pain in left toe(s)] 03-02-2025 Episodic Other connective tissue disease (1 source) Pain of toe of right foot; Translations: [Pain in right toe(s)] 03-01-2025 Episodic Other lower respiratory disease (1 source) Cough; Translations: [Cough] 07-25-2021 Episodic Other nutritional; endocrine; and metabolic disorders (20 sources) Body mass index 40+ - severely obese; Translations: [Morbid (severe) obesity due to excess calories] Onset: 05-27-2018 05-27-2018 Chronic Other skin disorders (1 source) Foot callus; Translations: [Corns and callosities] 03-01-2025 Episodic Residual codes; unclassified (2 sources) Edema; Translations: [Edema, unspecified] 10-23-2023 Episodic Skin and subcutaneous tissue infections (3 sources) Cellulitis of skin; Translations: [Cellulitis, unspecified] 10-23-2023 Episodic Unclassified (1 source) Open wound of left great toe 06-22-2025 Viral infection (1 source) COVID-19; Translations: [Pneumonia due to other virus not elsewhere classified] 08-30-2021 Episodic Past or Other Problems Problem Classification Problem Date Documented Da te Episodic/Chronic Genitourinary symptoms and ill-defined conditions (20 sources) Microalbuminuria ; Translations: [Proteinuria, unspecified] Onset: 08-03-2017 08-03-2017 Episodic Results Test Name Value Interpretation Reference Range Facility Absolute lymphocyte countOrd ered By: Tommy Damon on 06-22-2025 Lymphocytes Auto (Unsp spec) [#/Vol] 1.51 10*3/uL 0.83-4.51 [facility] Absolute neutrophil countOrd ered By: Tommy Damon on 06-22-2025 Neutrophils (Bld) [#/Vol] 10.1 10*3/uL High 2.0-7.7 [facility] Activated partial thrombopla stin time (aPTT) in platelet poor plasma by coagulation aOrdered By: Tommy Damon on 06-22-2025 aPTT Coag (PPP) [Time] 31.0 s 24.1-36.2 [facility] Anion gap in Serum or Plasma Ordered By: Tommy Damon on 06-22-2025 Anion gap [Moles/Vol] 14 mmol/L 5-15 [facility] Automated lymphocyte count a s percentage of total leukocytesOrdered By: Tommy Damon on 06-22-2025 Lymphocytes/100 WBC Auto (Unsp spec) 12.0 % Low 19-41 [facility] BUN/creatinine ratioOrdered By: Tommy Damon on 06-22-2025 Urea nitrogen/Creatinine [Mass ratio] 31.5 mg/mg High 10-20 [facility] Basophil percentageOrdered B y: Tommy Damon on 06-22-2025 Basophils/100 WBC (Bld) 0.3 % 0-1 [facility] Carbon dioxide, total [Moles /volume] in Central venous bloodOrdered By: Tommy Damon on 06-22-2025 CO2 [Moles/Vol] 23.4 mmol/L 21.0-32.0 [facility] Chloride assayOrdered By: Mack Damon on 06-22-2025 Chloride [Moles/Vol] 93 mmol/L Low 98-108 [facility] Eosinophil percentageOrdered By: Tommy Damon on 06-22-2025 Eosinophils/100 WBC (Bld) 0.0 % 0-5 [facility] Erythrocyte distribution wid th ratioOrdered By: Tommy Damon on 06-22-2025 Erythrocyte distribution width (RBC) [Ratio] 12.7 % 11.6-14.6 [facility] Erythrocyte distribution wid th standard deviationOrdered By: Tommy Damon on 06-22-2025 Erythrocyte distribution width (RBC) [Ratio] 42.3 fl 35.1-43.9 [facility] Glomerular filtration rate ( GFR) estimation/1.73 sq m using serum, plasma, or whole bOrdered By: Tommy Damon on 06-22-2025 GFR/1.73 sq M.predicted among non-blacks MDRD (S/P/Bld) [Vol rate/Area] 79 mL/min/{1.73_m2} >60 [facility] Comment on above: mL/min/1.73m2 CKD-EP I Creatinine Equation (2020) Hematocrit Auto (Bld) [Volum e fraction]Ordered By: Tommy Damon on 06-22-2025 Hematocrit (Bld) [Volume fraction] 38.5 % Low 40-54 [facility] Hemoglobin measurementOrdere d By: Tommy Damon on 06-22-2025 Hemoglobin (Bld) [Mass/Vol] 12.7 g/dL Low 13.0-16.5 [facility] Immature granulocytes/100 WB C Auto (Bld)Ordered By: Tommy Damon on 06-22-2025 Immature granulocytes/100 WBC (Bld) 0.500 % 0.0-0.9 [facility] Comment on above: IG% - Immature Granu locytes (promyelocytes, myelocytes and metamyelocytes) > 1% indicates that a LEFT SHIFT is Present. International normalized rat io (INR) calculationOrdered By: Tommy Damon on 06-22-2025 INR Coag (Bld) [Relative time] 1.2 {INR} [facility] Lactic acid measurementOrder ed By: Tmomy Damon on 06-22-2025 Lactate [Moles/Vol] 2.5 mmol/L High 0.0-2.0 [facility] Comment on above: Critical Result(s) C alled at 1249: by: ARA ROPER TO PB. Results read back by same. MCV (mean corpuscular volume ) determinationOrdered By: Tommy Damon on 06-22-2025 MCV (RBC) [Entitic vol] 90.6 fL 80-94 [facility] Mean corpuscular hemoglobin (MCH) determinationOrdered By: Tommy Damon on 06-22-2025 MCH (RBC) [Entitic mass] 29.9 pg 27.0-32.0 [facility] Mean corpuscular hemoglobin concentration (MCHC) determinationOrdered By: Tommy Damon on 06-22-2025 MCHC (RBC) [Mass/Vol] 33.0 g/dL 32-36 [facility] Mean platelet volume determi nationOrdered By: Tommy Damon on 06-22-2025 Platelet mean volume (Bld) [Entitic vol] 10.2 fL 6.2-12.0 [facility] Monocyte percentageOrdered B y: Tommy Damon on 06-22-2025 Monocytes/100 WBC (Bld) 6.7 % 0-10 [facility] Neutrophil percentageOrdered By: Tommy Damon on 06-22-2025 Neutrophils/100 WBC (Bld) 80.5 % High 47-70 [facility] Nucleated red blood cell per centageOrdered By: Tommy Damon on 06-22-2025 Nucleated RBC/100 WBC (Bld) [Ratio] 0 % 0-5 [facility] Platelet countOrdered By: Mack Damon on 06-22-2025 Platelets (Bld) [#/Vol] 290 10*3/uL 150-450 [facility] Potassium measurement (mass/ volume)Ordered By: Tommy Damon on 06-22-2025 Potassium (Unsp spec) [Mass/Vol] 4.3 mmol/L 3.3-5.1 [facility] Prothrombin timeOrdered By: Tommy Damon on 06-22-2025 PT Coag (PPP) [Time] 15.2 s High 11.7-14.9 [facility] RBC Auto (Bld) [#/Vol]Ordere d By: Tommy Damon on 06-22-2025 RBC (Bld) [#/Vol] 4.25 10*6/uL Low 4.6-6.2 [facility] Serum creatinine measurement (mass/volume)Ordered By: Tommy Damon on 06-22-2025 Creatinine [Mass/Vol] 1.06 mg/dL 0.70-1.20 [facility] Serum glucose measurement (m ass/volume)Ordered By: Tommy Damon on 06-22-2025 Glucose [Mass/Vol] 297 mg/dL High 70-99 [facility] Serum or plasma calcium brittani urement (mass/volume)Ordered By: Tommy Damon on 06-22-2025 Calcium [Mass/Vol] 9.3 mg/dL 7.6-11.0 [facility] Serum or plasma urea nitroge n measurement (mass/volume)Ordered By: Tommy Damon on 06-22-2025 Urea nitrogen [Mass/Vol] 33 mg/dL High 4-19 [facility] Sodium levelOrdered By: Tommy aDmon on 06-22-2025 Sodium [Moles/Vol] 131 mmol/L Low 133-145 [facility] White blood cell (WBC) count Ordered By: Tommy Damon on 06-22-2025 WBC (Bld) [#/Vol] 12.6 10*3/uL High 4.4-11.0 [facility] CNPNon 04-02-2025 CNPN Telephone ([facility]) JAGDISH FABIAN ([id number]) 1960 M Date Time Provider Department 04/02/25 JORGE MARIA During your visit today, we recorded the following information about you: Page, Dilia 04/02/2025 1:10 PM Signed Patient calling to report that the pharmacy dispensed the incorrect flash glucose sensors for his scanner. Patient states the box looked different and he was unsure if there were different types of sensors. Patient brought the current refill back to the pharmacy. The pharmacy states there was no error with what was on the prescription. Please contact patient and or pharmacy to further discuss. Caro Josue LPN 04/02/2025 2:28 PM Signed Attempted to reach patient to see what he was given. It appears we have only ever given him one type of sensor? Dilia Page 04/02/2025 4:17 PM Signed Patient returned missed call. PSS instructed to warm transfer patient to [place] nurse triage line. Patient ended call prior to being able to connect with a triage nurse. No available slots remaining on triage nurse call back template. Please contact the patient to assist with glucose sensors. Ashley Edwards RN 04/02/2025 4:29 PM Signed Called Pt and let him know that we have sent the same sensor in every time. He states he took all of the stuff into the pharmacy and they told him to call his PCP. I told him to call the town justice phone number on the sensor box and they should be able to tell him if they are the wrong ones and replace them if they were defective. Pt is going to call the town justice. Ashley Edwards RN Allergies As of Date: 04/02/2025 Noted Allergy Reaction PENICILLINS 05/31/2021 4 - Hives Date Reviewed: 03/01/2025 Reviewed by: Linda Dumont LPN - Fully Assessed Reason for Visit: Medication Problem [65] Cmt: Glucose Sensors Prescriptions as of 04/03/2025 - flash glucose sensor (FREESTYLE LYDIA 14 DAY SENSOR) kit 1 each four times daily. - metFORMIN (GLUCOPHAGE) 500 mg tablet TAKE TWO TABLETS BY MOUTH TWICE DAILY WITH MEALS - urea (CARMOL) 40 % Apply to affected area once daily. - dulaglutide (TRULICITY) 3 mg/0.5 mL pen injector Inject 3 mg subcutaneously one time a week. Inject once per week. Discard Pen After - lisinopril (ZESTRIL) 40 mg tablet Take 1 tablet by mouth once daily. - glimepiride (AMARYL) 4 mg tablet Take 1 tablet by mouth daily with breakfast. - amLODIPine (NORVASC) 5 mg tablet Take 1 tablet by mouth once daily. - metoprolol succinate ER (TOPROL XL) 100 mg Take 1 tablet by mouth once daily. - atorvastatin (LIPITOR) 40 mg tablet Take 1 tablet by mouth once daily. For cholesterol. - hydroCHLOROthiazide 25 mg tablet Take 1 tablet by mouth once daily. - flash glucose scanning reader (FREESTYLE LYDIA 14 DAY READER) 1 Each four times daily. Problem List As Of Date 04/02/2025 Noted Resolved Hypertension, essential [I10] 07/08/2017 Type 2 diabetes mellitus without complication, *07/08/2017 Hyperlipidemia, mixed [E78.2] 07/09/2017 Microalbuminuria [R80.9] 08/03/2017 Obesity, Class III, BMI >= 40 [E66.813] 05/27/2018 Encounter Status:Closed by ASHLEY EDWARDS on 04/02/25 [facility] CNOVon 03-01-2025 CNOV Office Visit (PODIWS ) JAGDISH FABIAN ([id number]) 1960 M Date Time Provider Department 03/01/25 1:45 PM DOMITILA LIMAS During your visit today, we recorded the following information about you: Linda Dumont LPN 03/02/2025 7:59 AM Signed AMB ROOMING INTAKE FLOWSHEET DATA Pain Pain Level: 5 Pain Location: Toe Description: Sore Frequency: Intermittent Intervention/Comfort measure: Reposition, Relaxation Patient presents with: Left Foot - Established Patient, Nail Fungus, Diabetic Foot Care Right Foot - Established Patient, Nail Fungus, Diabetic Foot Care Linda DumontROSALIE Domitila [facility] 03/02/2025 7:59 AM Signed Last saw pcp: 12/29/24 Subjective: Patient presents to clinic c/o painful toenails. They state that the nails are especially painful with shoe gear and pressure. Patient states that nails 1-5 b/l are painful. Patient admits to being diabetic. No other pedal complaints at this time. Patient states no change in medications or medical history since last visit. Objective: Patient presents to clinic ambulating in [facility] Vasc: DP and PT pulses are palpable bilateral. CFT is less than 5 seconds bilateral. Skin temperature is warm to cool proximal to distal bilateral. There is mild edema or varicosities noted. Neuro: Protective sensation is intact to the foot and toes when tested with the 5.07 SWM bilateral. Vibratory sensation is decreased at the hallux IPJ bilateral. The hallux is downgoing bilateral. Derm: Nails 1-5 b/l are painful, discolored-yellow, thick, crumbly, dystrophic and with subungal debris. Skin is of normal turgor, texture and hair growth is decreased bilateral. There are callus to right heel Ortho: Muscle strength is 5/5 for all pedal groups tested. Ankle joint DF is decreased with the knee extended with no pain or crepitus noted. 1st MPJ ROM is decreased bilateral. Assessment: (B35.1) Onychomycosis (primary encounter diagnosis) (M79.675) Pain in toe of left foot (M79.674) Pain in toe of right foot (R09.89) Diminished pulses in lower extremity (E08.42) Diabetic polyneuropathy associated with diabetes mellitus due to underlying condition ([facility]) (L84) Callus of foot Plan: Patient was seen and evaluated. Nails 1-5 bilateral were debrided in length and thickness. Discussed options not limited to oral medication for nail discoloration, topoical medication for nail discoloration, laser therapy vs removal. If he desired removal, would need to get A1c below 8. For now, he elects for conservative care, ie debridement. Patient was instructed on the continued importance of diabetic foot care along with proper diet and keeping their blood sugar under control to prevent complications. I stressed the importance of avoiding barefoot walking, wearing good shoes and inspection of feet. Callus reduced to right heel with dremmel. Carmol 40 prescribed for callus . Patient is to RTC in 3-4 months. IVIS Jaocbo Matthew 03/01/2025 1:57 PM Signed Diabetes Foot Care Instructions When you have diabetes, proper foot care is very important. Poor foot care may lead to amputation of a foot or leg. As a person with diabetes, you are more vulnerable to foot problems, because diabetes can damage your nerves and reduce blood flow to your feet. Here are some diabetes foot care tips to follow: Wash and Dry Your Feet Daily Use mild soaps Use warm water Pat your skin dry; do not rub. Thoroughly dry your feet. After washing, use lotion on your feet to prevent cracking. Do not put lotion between your toes. Examine Your Feet Each Day Check the tops and bottoms of your feet. Have someone else look at your feet if you cannot see them. Check for dry, cracked skin. Look for blisters, cuts, scratches, or other sores. Check for redness, increased warmth, or tenderness when touching any area of your feet. Check for ingrown toenails, corns, and calluses. If you get a blister or sore from your shoes, do not pop it. Apply a bandage and wear a different pair of shoes. Take Care of Your Toenails Cut toenails after bathing, when they are soft. Cut toenails straight across and smooth with a nail file. Avoid cutting into the corners of toes. Do not cut cuticles. If you have neuropathy (or decreased sensation in your feet) a explosives worker should always cut your toenails. Be Careful When Exercising Walk and exercise in comfortable shoes. Do not exercise when you have open sores on your feet. Protect Your Feet With Shoes and Socks Never go barefoot. Always protect your feet by wearing shoes or hard-soled slippers or footwear. Avoid shoes with high heels and pointed toes. Avoid shoes that expose your toes or heels (such as open-toed shoes or sandals). These types of shoes increase your risk for injury and potential infections. Try on new footwear with (more content not included)... Normal [facility] CNPNon 01-26-2025 CNPN Telephone ([facility]) JAGDISH FABINA ([id number]) 1960 M Date Time Provider Department 01/26/25 JORGE MARIA [facility] During your visit today, we recorded the following information about you: Jorge Maria MD 01/26/2025 2:59 PM Signed Sugar are a lot higher. Increase trulicity to 4.5 mg a week. Call over average sugar on his cgm in two weeks. Recheck A1c in three months and follow up after. Jailene Calixto MA 01/26/2025 5:03 PM Signed Patient notified and voiced understanding. Patient will need a new prescription for 4.5 mg for the Trulicity. Jailene Calixto MA Allergies As of Date: 01/26/2025 Noted Allergy Reaction PENICILLINS 05/31/2021 4 - Hives Date Reviewed: 12/29/2024 Reviewed by: Fay Plata MA - Fully Assessed Reason for Visit: Results [95] Visit Diagnosis:Type 2 diabetes mellitus without complication, without long-term current use of insulin (HCC) [E11.9] Order(s):HEMOGLOBIN A1C [SCGPV6Q] Order #: [id number] FUTURE dulaglutide (TRULICITY) 3 mg/0.5 mL pen injectorInject 3 mg subcutaneously one time a week. Inject once per week. Discard Pen AfterDisp: 6 mLRfl: 3 Prescriptions as of 02/01/2025 - dulaglutide (TRULICITY) 3 mg/0.5 mL pen injector Inject 3 mg subcutaneously one time a week. Inject once per week. Discard Pen After - lisinopril (ZESTRIL) 40 mg tablet Take 1 tablet by mouth once daily. - glimepiride (AMARYL) 4 mg tablet Take 1 tablet by mouth daily with breakfast. - amLODIPine (NORVASC) 5 mg tablet Take 1 tablet by mouth once daily. - metoprolol succinate ER (TOPROL XL) 100 mg Take 1 tablet by mouth once daily. - metFORMIN (GLUCOPHAGE) 500 mg tablet TAKE TWO TABLETS BY MOUTH TWICE DAILY WITH MEALS - atorvastatin (LIPITOR) 40 mg tablet Take 1 tablet by mouth once daily. For cholesterol. - hydroCHLOROthiazide 25 mg tablet Take 1 tablet by mouth once daily. - flash glucose sensor (FREESTYLE LYDIA 14 DAY SENSOR) kit 1 Each four times daily. - flash glucose scanning reader (FREESTYLE LYDIA 14 DAY READER) 1 Each four times daily. Problem List As Of Date 01/26/2025 Noted Resolved Hypertension, essential [I10] 07/08/2017 Type 2 diabetes mellitus without complication, *07/08/2017 Hyperlipidemia, mixed [E78.2] 07/09/2017 Microalbuminuria [R80.9] 08/03/2017 Obesity, Class III, BMI >= 40 [E66.01] 05/27/2018 Prescriptions ordered this encounter Disp Refills Start End DULAGLUTIDE 3 MG/0.5 ML SUBCUTANEOUS* 6 mL 3 01/26/2025 01/27/2025 Route: SUBCUTANEOUS Sig: Inject 3 mg subcutaneously one time a week. Inject once per week. Discard Pen After DULAGLUTIDE 3 MG/0.5 ML SUBCUTANEOUS* 6 mL 3 01/27/2025 01/27/2026 Route: SUBCUTANEOUS Sig: Inject 3 mg subcutaneously one time a week. Inject once per week. Discard Pen After Medications Discontinued During This Encounter Prescriptions - dulaglutide (TRULICITY) 3 mg/0.5 mL pen injector (Discontinued) Inject 3 mg subcutaneously one time a week. Inject once per week. Discard Pen After - dulaglutide (TRULICITY) 3 mg/0.5 mL pen injector (Discontinued) Inject 3 mg subcutaneously one time a week. Inject once per week. Discard Pen After Encounter Status:Closed by JORGE MARIA on 02/01/25 [facility] ALBUMIN/CREATININE RATIO, FESTUS Delaney 01-25-2025 Albumin DL <= 20 mg/L (U) [Mass/Vol] 31.4 mg/L Normal [facility] Comment on above: Order Comment: Speci men Type: URINE SPECIMEN Ordering Facility: [facility] Address: [address] [place] [address] Performed By: #### U ACR #### [facility] CLIA [id number] [address] [place] [address] [place] Albumin/Creatinine (U) [Mass ratio] 51 mg/g High <30 [facility] Comment on above: Order Comment: Speci men Type: URINE SPECIMEN Ordering Facility: [facility] Address: [address] [place] [address] Result Comment: Adul t Male and Female Nephrotic Criteria: <30 mg/g is considered normal to mildly increased 30-300 mg/g is considered moderately increased >300 mg/g is considered severely increased KDIGO. (2013). KDIGO 2012 Clinical Practice Guideline for the Evaluation and Management of Chronic Kidney Disease. Official Journal of the International Society of Nephrology, 3(1), 1-150. Performed By: #### U ACR #### [facility] CLIA [id number] [address] [place] [address] [place] Creatinine (U) [Mass/Vol] 61.1 mg/dL Normal 20.0-300.0 [facility] Comment on above: Order Comment: Speci men Type: URINE SPECIMEN Ordering Facility: [facility] Address: [address] [place] [address] Performed By: #### U ACR #### [facility] CLIA [id number] [address] [place] [address] [place] CBC W Auto Differential pane l (Bld)on 01-25-2025 Basophils (Bld) [#/Vol] 0.05 10*3/uL Normal <0.11 [facility] Comment on above: Order Comment: Speci men Type: BLOOD SPECIMEN Ordering Facility: [facility] Address: [address] [place] [address] Performed By: #### 5 7021-8 #### [facility] CLIA [id number] [address] [place] [address] [place] Basophils/100 WBC (Bld) 0.5 % Normal [facility] Comment on above: Order Comment: Speci men Type: BLOOD SPECIMEN Ordering Facility: [facility] Address: [address] [place] [address] Performed By: #### 5 7021-8 #### [facility] CLIA [id number] [address] [place] [address] [place] Differential cell count method Nom (Bld) Auto Normal [facility] Comment on above: Order Comment: Speci men Type: BLOOD SPECIMEN Ordering Facility: [facility] Address: [address] [place] [address] Performed By: #### 5 7021-8 #### [facility] CLIA [id number] [address] [place] [address] [place] Eosinophils (Bld) [#/Vol] 0.19 10*3/uL Normal <0.46 [facility] Comment on above: Order Comment: Speci men Type: BLOOD SPECIMEN Ordering Facility: [facility] Address: [address] [place] [address] Performed By: #### 5 7021-8 #### [facility] CLIA [id number] [address] [place] [address] [place] Eosinophils/100 WBC (Bld) 2.0 % Normal [facility] Comment on above: Order Comment: Speci men Type: BLOOD SPECIMEN Ordering Facility: [facility] Address: [address] [place] [address] Performed By: #### 5 7021-8 #### [facility] CLIA [id number] [address] [place] [address] [place] Erythrocyte distribution width (RBC) [Ratio] 12.9 % Normal 11.5-15.0 [facility] Comment on above: Order Comment: Speci men Type: BLOOD SPECIMEN Ordering Facility: [facility] Address: [address] [place] [address] Performed By: #### 5 7021-8 #### [facility] CLIA [id number] [address] [place] [address] [place] Hematocrit (Bld) [Volume fraction] 39.9 % Normal 39.0-51.0 [facility] Comment on above: Order Comment: Speci men Type: BLOOD SPECIMEN Ordering Facility: [facility] Address: [address] [place] [address] Performed By: #### 5 7021-8 #### [facility] CLIA [id number] [address] [place] [address] [place] Hemoglobin (Bld) [Mass/Vol] 13.2 g/dL Normal 13.0-17.0 [facility] Comment on above: Order Comment: Speci men Type: BLOOD SPECIMEN Ordering Facility: [facility] Address: [address] [place] [address] Performed By: #### 5 7021-8 #### [facility] CLIA [id number] [address] [place] [address] [place] Immature granulocytes (Bld) [#/Vol] 0.04 10*3/uL Normal <0.10 [facility] Comment on above: Order Comment: Speci men Type: BLOOD SPECIMEN Ordering Facility: [facility] Address: [address] [place] [address] Performed By: #### 5 7021-8 #### [facility] CLIA [id number] [address] [place] [address] [place] Immature granulocytes/100 WBC (Bld) 0.4 % Normal [facility] Comment on above: Order Comment: Speci men Type: BLOOD SPECIMEN Ordering Facility: [facility] Address: [address] [place] [address] Performed By: #### 5 7021-8 #### [facility] CLIA [id number] [address] [place] [address] [place] Lymphocytes (Bld) [#/Vol] 3.71 10*3/uL Normal 1.00-4.00 [facility] Comment on above: Order Comment: Speci men Type: BLOOD SPECIMEN Ordering Facility: [facility] Address: [address] [place] [address] Performed By: #### 5 7021-8 #### [facility] CLIA [id number] [address] [place] [address] [place] Lymphocytes/100 WBC (Bld) 38.3 % Normal [facility] Comment on above: Order Comment: Speci men Type: BLOOD SPECIMEN Ordering Facility: [facility] Address: [address] [place] [address] Performed By: #### 5 7021-8 #### [facility] CLIA [id number] [address] [place] [address] [place] MCH (RBC) [Entitic mass] 29.9 pg Normal 26.0-34.0 [facility] Comment on above: Order Comment: Speci men Type: BLOOD SPECIMEN Ordering Facility: [facility] Address: [address] [place] [address] Performed By: #### 5 7021-8 #### [facility] CLIA [id number] [address] [place] [address] [place] MCHC (RBC) [Mass/Vol] 33.1 g/dL Normal 30.5-36.0 [facility] Comment on above: Order Comment: Speci men Type: BLOOD SPECIMEN Ordering Facility: [facility] Address: [address] [place] [address] Performed By: #### 5 7021-8 #### [facility] CLIA [id number] [address] [place] [address] [place] MCV (RBC) [Entitic vol] 90.3 fL Normal 80.0-100.0 [facility] Comment on above: Order Comment: Speci men Type: BLOOD SPECIMEN Ordering Facility: [facility] Address: [address] [place] [address] Performed By: #### 5 7021-8 #### [facility] CLIA [id number] [address] [place] [address] [place] Monocytes (Bld) [#/Vol] 0.67 10*3/uL Normal <0.87 [facility] Comment on above: Order Comment: Speci men Type: BLOOD SPECIMEN Ordering Facility: [facility] Address: [address] [place] [address] Performed By: #### 5 7021-8 #### [facility] CLIA [id number] [address] [place] [address] [place] Monocytes/100 WBC (Bld) 6.9 % Normal [facility] Comment on above: Order Comment: Speci men Type: BLOOD SPECIMEN Ordering Facility: [facility] Address: [address] [place] [address] Performed By: #### 5 7021-8 #### [facility] CLIA [id number] [address] [place] [address] [place] Neutrophils (Bld) [#/Vol] 5.03 10*3/uL Normal 1.45-7.50 [facility] Comment on above: Order Comment: Speci men Type: BLOOD SPECIMEN Ordering Facility: [facility] Address: [address] [place] [address] Performed By: #### 5 7021-8 #### [facility] CLIA [id number] [address] [place] [address] [place] Neutrophils/100 WBC (Bld) 51.9 % Normal [facility] Comment on above: Order Comment: Speci men Type: BLOOD SPECIMEN Ordering Facility: [facility] Address: [address] [place], [place] [id number] Performed By: #### 5 7021-8 #### [facility] CLIA [id number] [address] [place] [address] [place] Nucleated RBC (Bld) [#/Vol] 10*3/uL Normal <0.01 [facility] Comment on above: Order Comment: Speci men Type: BLOOD SPECIMEN Ordering Facility: [facility] Address: [address] [place] [address] Performed By: #### 5 7021-8 #### [facility] CLIA [id number] [address] [place] [address] [place] Nucleated RBC/100 WBC (Bld) [Ratio] 0.0 /100 WBC Normal [facility] Comment on above: Order Comment: Speci men Type: BLOOD SPECIMEN Ordering Facility: [facility] Address: [address] [place] [address] Performed By: #### 5 7021-8 #### [facility] CLIA [id number] [address] [place] [address] [place] Platelet mean volume (Bld) [Entitic vol] 10.7 fL Normal 9.0-12.7 [facility] Comment on above: Order Comment: Speci men Type: BLOOD SPECIMEN Ordering Facility: [facility] Address: [address] [place] [address] Performed By: #### 5 7021-8 #### [facility] CLIA [id number] [address] [place] [address] [place] Platelets (Bld) [#/Vol] 260 10*3/uL Normal 150-400 [facility] Comment on above: Order Comment: Speci men Type: BLOOD SPECIMEN Ordering Facility: [facility] Address: [address] [place] [address] Performed By: #### 5 7021-8 #### [facility] CLIA [id number] [address] [place] [address] [place] RBC (Bld) [#/Vol] 4.42 10*6/uL Normal 4.20-6.00 [facility] Comment on above: Order Comment: Speci men Type: BLOOD SPECIMEN Ordering Facility: [facility] Address: [address] [place] [address] Performed By: #### 5 7021-8 #### [facility] CLIA [id number] [address] [place] [address] [place] WBC (Bld) [#/Vol] 9.69 10*3/uL Normal 3.70-11.00 [facility] Comment on above: Order Comment: Speci men Type: BLOOD SPECIMEN Ordering Facility: [facility] Address: [address] [place] [address] Performed By: #### 5 7021-8 #### [facility] CLIA [id number] [address] [place] [address] [place] Cholesterol in LDL Direct as say [Mass/Vol]on 01-25-2025 Cholesterol in LDL [Mass/Vol] 87 mg/dL Normal <100 [facility] Comment on above: Order Comment: Jersoni men Type: BLOOD SPECIMEN Ordering Facility: [facility] Address: [address] [address] Result Comment: <100 mg/dL, Optimal 100-129 mg/dL, Near optimal/above optimal 130-159 mg/dL, Borderline high 160-189 mg/dL, High >189 mg/dL, Very high Secondary prevention optimal LDL Cholesterol levels are recommended to be < 70 mg/dL Performed By: #### 1 8262-6, 92712-5, 39399-7 #### [facility] CLIA [id number] [address] [place] [address] [place] Cholesterol in VLDL [Mass/Vol] 53 mg/dL High <30 [facility] Comment on above: Order Comment: Speci men Type: BLOOD SPECIMEN Ordering Facility: [facility] Address: [address] [address] Performed By: #### 1 8262-6, 47976-5, 17175-5 #### [facility] CLIA [id number] [address] [place] [address] [place] Comprehensive metabolic 2000 panelon 01-25-2025 Albumin [Mass/Vol] 3.9 g/dL Normal 3.9-4.9 [facility] Comment on above: Order Comment: Speci men Type: BLOOD SPECIMEN Ordering Facility: [facility] Address: [address] [address] Performed By: #### 1 8262-6, 74746-8, 24802-3 #### [facility] CLIA [id number] [address] [place] [address] [place] ALP [Catalytic activity/Vol] 94 U/L Normal 38-113 [facility] Comment on above: Order Comment: Speci men Type: BLOOD SPECIMEN Ordering Facility: [facility] Address: [address] [place] [address] Performed By: #### 1 8262-6, 92216-0, 64081-1 #### [facility] CLIA [id number] [address] [place] [address] [place] ALT [Catalytic activity/Vol] 22 U/L Normal 10-54 [facility] Comment on above: Order Comment: Speci men Type: BLOOD SPECIMEN Ordering Facility: [facility] Address: [address] [place] [address] Performed By: #### 1 8262-6, 20634-1, 92808-3 #### [facility] CLIA [id number] [address] [place] [address] [place] Anion gap [Moles/Vol] 14 mmol/L Normal 8-15 [facility] Comment on above: Order Comment: Speci men Type: BLOOD SPECIMEN Ordering Facility: [facility] Address: [address] [address] Performed By: #### 1 8262-6, 12272-5, 09506-6 #### [facility] CLIA [id number] [address] [place] [address] [place] AST [Catalytic activity/Vol] 21 U/L Normal 14-40 [facility] Comment on above: Order Comment: Speci men Type: BLOOD SPECIMEN Ordering Facility: [facility] Address: [address] [place] [address] Performed By: #### 1 8262-6, 23536-6, 11631-8 #### [facility] CLIA [id number] [address] [place] [address] [place] Bilirubin [Mass/Vol] 0.5 mg/dL Normal 0.2-1.3 [facility] Comment on above: Order Comment: Speci men Type: BLOOD SPECIMEN Ordering Facility: [facility] Address: [address] [place] [address] Performed By: #### 1 8262-6, 41355-0, 92520-7 #### [facility] CLIA [id number] [address] [place] [address] [place] Calcium [Mass/Vol] 9.5 mg/dL Normal 8.5-10.2 [facility] Comment on above: Order Comment: Speci men Type: BLOOD SPECIMEN Ordering Facility: [facility] Address: [address] [place] [address] Performed By: #### 1 8262-6, 18785-0, 47632-7 #### [facility] CLIA [id number] [address] [place], [place] [address] [place] Chloride [Moles/Vol] 97 mmol/L Low 98-107 [facility] Comment on above: Order Comment: Speci men Type: BLOOD SPECIMEN Ordering Facility: [facility] Address: [address] [place] [address] Performed By: #### 1 8262-6, 03049-1, 34265-6 #### [facility] CLIA [id number] [address] [place] [address] [place] CO2 [Moles/Vol] 22 mmol/L Normal 22-30 [facility] Comment on above: Order Comment: Speci men Type: BLOOD SPECIMEN Ordering Facility: [facility] Address: [address] [place] [address] Performed By: #### 1 8262-6, 37847-1, 10886-7 #### [facility] CLIA [id number] [address] [place] [address] [place] Creatinine [Mass/Vol] 0.73 mg/dL Normal 0.73-1.22 [facility] Comment on above: Order Comment: Speci men Type: BLOOD SPECIMEN Ordering Facility: [facility] Address: [address] [place] [address] Performed By: #### 1 8262-6, 87650-5, 81421-4 #### [facility] IA [id number] [address] [place] [address] [place] Creatinine and Glomerular filtration rate.predicted panel (S/P/Bld) 103 mL/min/1.73m??? Normal >=60 [facility] Comment on above: Order Comment: Speci men Type: BLOOD SPECIMEN Ordering Facility: [facility] Address: [address] [place] [address] Result Comment: Lien mated Glomerular Filtration Rate (eGFR) is calculated using the 2020 CKD-EPI creatinine equation. This equation utilizes serum creatinine, sex, and age as parameters. The creatinine assay has traceable calibration to isotope dilution-mass spectrometry. Refer to KDIGO guidelines for clinical interpretation. In patients with unstable renal function, e.g. those with acute kidney injury, the eGFR may not accurately reflect actual GFR. Performed By: #### 1 8262-6, 82300-7, 73143-6 #### [facility] CLIA [id number] [address] [place], [place] [address] [place] Glucose [Mass/Vol] 292 mg/dL High 74-99 [facility] Comment on above: Order Comment: Shikha ng Type: BLOOD SPECIMEN Ordering Facility: [facility] Address: [address] [place] [address] Result Comment: The [place] Diabetes Association (ADA) provides guidance for cutoff values for fasting glucose and random glucose. The ADA defines fasting as no caloric intake for at least 8 hours. Fasting plasma glucose results between 100 to 125 mg/dL indicate increased risk for diabetes (prediabetes). Fasting plasma glucose results greater than or equal to 126 mg/dL meet the criteria for diagnosis of diabetes. In the absence of unequivocal hyperglycemia, results should be confirmed by repeat testing. In a patient with classic symptoms of hyperglycemia or hyperglycemic crisis, random plasma glucose results greater than or equal to 200 mg/dL meet the criteria for diagnosis of diabetes. Reference: Standards of Medical Care in Diabetes 2016, [place] Diabetes Association. Diabetes Care. 2016.39(Suppl 1). Performed By: #### 1 8262-6, 08188-6, 22382-3 #### [facility] CLIA [id number] [address] [place] [address] [place] Potassium [Moles/Vol] 4.8 mmol/L Normal 3.7-5.1 [facility] Comment on above: Order Comment: Shikha ng Type: BLOOD SPECIMEN Ordering Facility: [facility] Address: [address] [place] [address] Performed By: #### 1 8262-6, 89862-7, 55027-0 #### [facility] CLIA [id number] [address] [place] [address] [place] Protein [Mass/Vol] 7.3 g/dL Normal 6.3-8.0 [facility] Comment on above: Order Comment: Shikha ng Type: BLOOD SPECIMEN Ordering Facility: [facility] Address: [address] [place] [address] Performed By: #### 1 8262-6, 46583-0, 92010-6 #### [facility] CLIA [id number] [address] [id number] [address] [place] Sodium [Moles/Vol] 133 mmol/L Low 136-144 [facility] Comment on above: Order Comment: Shikha ng Type: BLOOD SPECIMEN Ordering Facility: [facility] Address: [address] [address] Performed By: #### 1 8262-6, 77239-0, 61372-6 #### [facility] CLIA [id number] [address] [place] [address] [place] Urea nitrogen [Mass/Vol] 28 mg/dL High 9-24 [facility] Comment on above: Order Comment: Shikha ng Type: BLOOD SPECIMEN Ordering Facility: [facility] Address: [address] [place] [address] Performed By: #### 1 8262-6, 26000-2, 21509-9 #### [facility] CLIA [id number] [address] [place] [address] [place] HbA1c (Bld)on 01-25-2025 Average glucose Estimated from glycated hemoglobin (Bld) [Mass/Vol] 286 mg/dL Normal [facility] Comment on above: Order Comment: Shikha ng Type: BLOOD SPECIMEN Ordering Facility: [facility] Address: [address] [place] [address] Result Comment: eAG: (Estimated average glucose) is a calculated value from HgbA1c and is registration representative of the average blood glucose level in the last 2-3 month period. Performed By: #### 5 5454-3 #### [facility] CLIA [id number] [address] [place] [address] [place] HbA1c (Bld) [Mass fraction] 11.6 % High 4.3-5.6 [facility] Comment on above: Order Comment: Shikha ng Type: BLOOD SPECIMEN Ordering Facility: [facility] Address: [address] [place] [address] Result Comment: [place] Diabetes Association guidelines indicate that patients with HgbA1c in the range 5.7-6.4% are at increased risk for development of diabetes, and intervention by lifestyle modification may be beneficial. HgbA1c greater or equal to 6.5% is considered diagnostic of diabetes. Performed By: #### 5 5454-3 #### [facility] CLIA [id number] [address] [place] [address] [place] Lipid 1996 panelon 5 Cholesterol [Mass/Vol] 173 mg/dL Normal <200 [facility] Comment on above: Order Comment: Speci men Type: BLOOD SPECIMEN Ordering Facility: [facility] Address: [address] [place] [address] Result Comment: <200 mg/dL, Desirable 200-239 mg/dL, Borderline high >239 mg/dL, High Performed By: #### 1 8262-6, 97537-7, 29879-0 #### [facility] CLIA [id number] [address] [place] [address] [place] Cholesterol in HDL [Mass/Vol] 33 mg/dL Low >39 [facility] Comment on above: Order Comment: Jersoni [facility] Type: BLOOD SPECIMEN Ordering Facility: [facility] Address: [address] [place] [address] Result Comment: 40-5 9 mg/dL, Acceptable >59 mg/dL, High: Negative risk factor for coronary heart disease <40 mg/dL, Low: Positive risk factor for coronary heart disease Performed By: #### 1 8262-6, 17744-7, 93383-7 #### [facility] CLIA [id number] [address] [place] [address] [place] Cholesterol in LDL [Mass/Vol] Normal [facility] Comment on above: Order Comment: Speci men Type: BLOOD SPECIMEN Ordering Facility: [facility] Address: [address] [place] [address] Result Comment: Unab le to calculate due to increased Triglycerides. See LDL-Chol, Direct. Performed By: #### 1 8262-6, 73325-0, 19060-7 #### [facility] CLIA [id number] [address] [place] [address] Cholesterol in LDL/Cholesterol in HDL [Mass ratio] Normal [facility] Comment on above: Order Comment: Shikha berenice Type: BLOOD SPECIMEN Ordering Facility: [facility] Address: [address] [place] [address] Result Comment: Unab le to calculate due to elevated Triglycerides. Reference: 1. National Cholesterol Education Program ATP III Guideline At-A-Glance Quick Desk Reference: National Heart, Lung, and Blood Drumright. National Institutes of Health. 2001: NIH Publication No. 01-3305. 2. An International Atherosclerosis Society position paper: global recommendations for the management of dyslipidemia: executive summary, Atherosclerosis. 2014: 232(2):410-413. Performed By: #### 1 8262-6, 40617-2, 73149-1 #### [facility] CLIA [id number] [address] [place] [address] [place] [facility] Cholesterol in VLDL [Mass/Vol] Normal [facility] Comment on above: Order Comment: Shikha ng Type: BLOOD SPECIMEN Ordering Facility: [facility] Address: [address] [place] [address] Result Comment: Unab le to calculate due to increased Triglycerides. See LDL-Chol, Direct. Performed By: #### 1 8262-6, 60284-7, 82911-5 #### [facility] CLIA [id number] [address] [place] [address] [place] Cholesterol non HDL [Mass/Vol] 140 mg/dL High <130 [facility] Comment on above: Order Comment: Jersonruthie ng Type: BLOOD SPECIMEN Ordering Facility: [facility] Address: [address] [place] [address] Result Comment: <130 mg/dL, Optimal 130-159 mg/dL, Near optimal/above optimal 160-189 mg/dL, Borderline high 190-219 mg/dL, High >219 mg/dL, Very high Secondary prevention optimal non HDL Cholesterol levels are recommended to be <100 mg/dL Performed By: #### 1 8262-6, 92431-4, 24998-7 #### [facility] CLIA [id number] [address] [place] [address] [place] Cholesterol.total/Choles terol in HDL [Mass ratio] 5.24 {ratio} High <5.10 [facility] Comment on above: Order Comment: Speci men Type: BLOOD SPECIMEN Ordering Facility: [facility] Address: [address] [place] [address] Performed By: #### 1 8262-6, 60697-8, 28653-2 #### [facility] CLIA [id number] [address] [place] [address] [place] [facility] FASTING TIME 12 hrs Normal [facility] Comment on above: Order Comment: Speci men Type: BLOOD SPECIMEN Ordering Facility: [facility] Address: [address] [place] [address] Performed By: #### 1 8262-6, 80033-1, 83471-0 #### [facility] CLIA [id number] [address] [place] [address] [place] Triglyceride [Mass/Vol] 423 mg/dL High <150 [facility] Comment on above: Order Comment: Speci men Type: BLOOD SPECIMEN Ordering Facility: [facility] Address: [address] [place] [address] Result Comment: <150 mg/dL, Normal 150-199 mg/dL, Borderline high 200-499 mg/dL, High >499 mg/dL, Very high Performed By: #### 1 8262-6, 40966-7, 26727-8 #### [facility] CLIA [id number] [address] [place] [address] [place] CNOVon 12-29-2024 CNOV Office Visit (FAMPWS ) JAGDISH FABIAN ([id number]) 1960 M Date Time Provider Department 12/29/24 8:40 AM JORGE MARIA During your visit today, we recorded the following information about you: Pulse Blood pressure Weight Height 69/minute 136/74 130.2 kg 1.753 m Jorge Maria MD 12/29/2024 8:58 AM Signed Patient presents with: Follow Up HPI: Patient presents today for office visit for follow up. HTN: Continues Lisinopril 40 mg daily Amlodipine 5 mg daily Metoprolol 100 mg daily HCTZ 25 mg daily Does not monitor BP at home. Consistent with taking medications. Never misses doses currently but did lose coverage for a month and has been back on them. Denies chest pain and shortness of breath Denies headaches and dizziness Denies palpitations and syncope Occ swelling to left ankle. DM: Continues Glimepiride 4 mg daily Metformin 500 mg 2 tabs BID Trulicity 3 mg weekly Checking sugars 3+ times a day. Has been higher. No hypoglycemic spells No unexpected weight loss Some polyuria and polydipsia Due for eye exam Due for A1c HLD: Continues Atorvastatin 40 mg daily No myalgias Due for labs Missed his last podiatry appt. MEDICATIONS: Current Outpatient Medications Medication Sig lisinopril (ZESTRIL) 40 mg tablet Take 1 tablet by mouth once daily. amLODIPine (NORVASC) 5 mg tablet Take 1 tablet by mouth once daily. metoprolol succinate ER (TOPROL XL) 100 mg Take 1 tablet by mouth once daily. glimepiride (AMARYL) 4 mg tablet Take 1 tablet by mouth daily with breakfast. metFORMIN (GLUCOPHAGE) 500 mg tablet TAKE TWO TABLETS BY MOUTH TWICE DAILY WITH MEALS atorvastatin (LIPITOR) 40 mg tablet Take 1 tablet by mouth once daily. For cholesterol. hydroCHLOROthiazide 25 mg tablet Take 1 tablet by mouth once daily. flash glucose sensor (FREESTYLE LYDIA 14 DAY SENSOR) kit 1 Each four times daily. flash glucose scanning reader (FREESTYLE LYDIA 14 DAY READER) 1 Each four times daily. dulaglutide (TRULICITY) 3 mg/0.5 mL pen injector Inject 3 mg subcutaneously one time a week. Inject once per week. Discard Pen After No current facility-administered medications for this visit. ALLERGIES: ALLERGIES Allergen Reactions Penicillins Hives PAST MEDICAL HISTORY Diagnosis Date Diabetes mellitus, type II (HCC) Hypertension Mixed hyperlipidemia PAST SURGICAL HISTORY Procedure Laterality Date REPAIR UMBILICUS 2016 [facility] FAMILY HISTORY Problem Relation Age of Onset Diabetes Mother 72 Kidney Disease Mother ESRD other (Other farm accident) Father 68 Social History Tobacco Use Smoking status: Never Smokeless tobacco: Never Substance Use Topics Alcohol use: Yes Comment: social Drug use: No Reviewed current medications, allergies, past medical history, surgical history, family history and social history today. REVIEW OF SYSTEMS Had echo last year that showed mild aortic stenosis due to calcified valve. Recently had a uri that is getting better. All other reviewed and negative other than HPI. HEALTH MAINTENANCE: Reviewed health maintenance issues today and recommended the following in detail. Dilated Retinal Exam -recommended. Depression Screening Never done Anxiety Screening Never done BP Controlled (<130/80) Never done DTaP,Tdap,Td Vaccine(1 - Tdap) Never done Pneumococcal Vaccine: 50+(1 of 2 - PCV) Never done Shingrix Vaccine(1 of 2) Never done RSV Vaccine(1 - Risk 60-74 years 1-dose series) Never done Diabetic Foot Exam due on 02/02/2024 LDL Cholesterol due on 02/09/2024 Urine Albumin:Creatinine Ratio due on 02/10/2024 HbA1C due on 03/10/2024 Influenza Vaccine(1) due on 07/19/2024 Covid-19 Vaccine( - 2023- season) Never done VITALS: BP 136/74 Pulse 69 Ht 175.3 cm (5' 9) Wt 130.2 kg (287 lb) SpO2 98% BMI 42.38 kg/m? Last 4 Encounter Wt Readings: Date: Wt: 12/20/2023 129.7 kg (286 lb) 10/23/2023 128.4 kg (283 lb) 10/18/2023 129.3 kg (285 lb) 02/01/2023 130.6 kg (288 lb) PHYSICAL EXAMINATION: General appearance: Well appearing, alert, in no acute distress, well-hydrated, well nourished. Skin: Skin color, texture, turgor normal, no suspicious rashes or lesions Head: Normocephalic, no masses, lesions, tenderness or abnormalities Lungs: Lungs clear to auscultation. No wheezing, rhonchi, rales Heart:RRR, murmur unchanged. Abdomen: Normal abdominal exam, Abdomen soft, non-tender. Bowel sounds normal. No masses, organomegaly Extremities: No deformities, edema, skin discoloration, clubbing or cyanosis. Good capillary refill. ASSESSMENT/PLAN: 1. Hyperlipidemia, mixed - ICD9: 272.2, ICD10: E78.2 (primary diagnosis) - Controlled - Continue current medications 2. Type 2 diabetes mellitus without complication, without long-term current use of insulin (HCC) - ICD9: 250.00, ICD1 (more content not included)... Normal [facility] XR Chest PA and Lateralon IMPRESSION: No acute radiographic abnormality. Labor And Delivery Registered Nurse: YAZMIN Transcribe Date/Time: Aug 30 2021 9:35A Dictated by : DANIEL BALDWIN MD This examination was interpreted and the report reviewed and electronically signed by: DANIEL BALDWIN MD on Aug 30 2021 9:35AM [facility] DIVISION OF RADIOLOGY * * *Final Report* * * DATE OF EXAM: Aug 30 2021 9:22AM WOX [id number] - XR CHEST 2V FRONTAL/LAT / PROCEDURE REASON: multiple diagnoses * * * * Physician Interpretation * * * * EXAMINATION: CHEST RADIOGRAPH (2 VIEW FRONTAL & LATERAL) CLINICAL HISTORY: Pneumonia due to COVID-19 virus MQ: XC2_6 EXAM DATE/TIME: 08/30/2021 9:22 AM COMPARISON: Chest x-ray dated August 04, 2021 RESULT: Lines, tubes, and devices: None. Lungs and pleura: No consolidation with interval radiographic resolution of previously noted bilateral patchy opacities. No lung mass. No pleural effusion. No pneumothorax. Cardiomediastinal silhouette: Normal cardiomediastinal silhouette. Bones and soft tissues: Degenerative changes are present within the thoracic spine. DIVISION OF RADIOLOGY Provider, [facility] - 08/30/2021 * * *Final Report* * * DATE OF EXAM: Aug 30 2021 9:22AM WOX [id number] - XR CHEST 2V FRONTAL/LAT / PROCEDURE REASON: multiple diagnoses * * * * Physician Interpretation * * * * EXAMINATION: CHEST RADIOGRAPH (2 VIEW FRONTAL & LATERAL) CLINICAL HISTORY: Pneumonia due to COVID-19 virus MQ: XC2_6 EXAM DATE/TIME: 08/30/2021 9:22 AM COMPARISON: Chest x-ray dated August 04, 2021 RESULT: Lines, tubes, and devices: None. Lungs and pleura: No consolidation with interval radiographic resolution of previously noted bilateral patchy opacities. No lung mass. No pleural effusion. No pneumothorax. Cardiomediastinal silhouette: Normal cardiomediastinal silhouette. Bones and soft tissues: Degenerative changes are present within the thoracic spine. IMPRESSION IMPRESSION: No acute radiographic abnormality. Labor [facility] Delivery [facility] Trans[facility] Date/Time: Aug 30 2021 9:35A Dictated by : DANIEL BALDWIN MD This examination was interpreted and the report reviewed and electronically signed by: DANIEL BALDWIN MD on Aug 30 2021 9:35AM [facility] Radiology Study observation (narrative) [facility] XR Chest PA and LateralOrder ed By: [facility] Provider on 08-30-2021 [facility] XR Chest PA and Lateralon IMPRESSION: Multiple small patchy or nodular opacities overlying the bilateral mid to lower lung zones. It would be helpful to compare with prior chest x-ray. Labor And Delivery Registered Nurse: [facility] Transcribe Date/Time: Jul 25 2021 1:02P Dictated by : ALEXIA BOURGEOIS MD This examination was interpreted and the report reviewed and electronically signed by: ALEXIA BOURGEOIS MD on Jul 25 2021 1:03PM [facility] DIVISION OF RADIOLOGY * * *Final Report* * * DATE OF EXAM: Jul 25 2021 12:59PM WOX [id number] - XR CHEST 2V FRONTAL/LAT / PROCEDURE REASON: Cough * * * * Physician Interpretation * * * * EXAMINATION: CHEST RADIOGRAPH (2 VIEW FRONTAL & LATERAL) CLINICAL HISTORY: Cough MQ: XC2_6 EXAM DATE/TIME: 07/25/2021 12:59 PM COMPARISON: No relevant prior studies available. RESULT: Lines, tubes, and devices: None. Lungs and pleura: Multiple small patchy or nodular opacities overlying the bilateral mid to lower lung zones. The upper lungs are clear. No mass lesion seen. No pleural effusions or pneumothorax. Cardiomediastinal silhouette: The cardiac silhouette and mediastinal contour are within normal limits. Bones and soft tissues: The spine shows degenerative changes. DIVISION OF RADIOLOGY Provider, Jesse Tatum - 07/25/2021 * * *Final Report* * * DATE OF EXAM: Jul 25 2021 12:59PM WOX 5291 - XR CHEST 2V FRONTAL/LAT / PROCEDURE REASON: Cough * * * * Physician Interpretation * * * * EXAMINATION: CHEST RADIOGRAPH (2 VIEW FRONTAL & LATERAL) CLINICAL HISTORY: Cough MQ: XC2_6 EXAM DATE/TIME: 07/25/2021 12:59 PM COMPARISON: No relevant prior studies available. RESULT: Lines, tubes, and devices: None. Lungs and pleura: Multiple small patchy or nodular opacities overlying the bilateral mid to lower lung zones. The upper lungs are clear. No mass lesion seen. No pleural effusions or pneumothorax. Cardiomediastinal silhouette: The cardiac silhouette and mediastinal contour are within normal limits. Bones and soft tissues: The spine shows degenerative changes. IMPRESSION IMPRESSION: Multiple small patchy or nodular opacities overlying the bilateral mid to lower lung zones. It would be helpful to compare with prior chest x-ray. Labor And Delivery Registered Nurse: PSCB Transcribe Date/Time: Jul 25 2021 1:02P Dictated by : ALEXIA BOURGEOIS MD This examination was interpreted and the report reviewed and electronically signed by: ALEXIA BOURGEOIS MD on Jul 25 2021 1:03PM EST [facility] Radiology Study observation (narrative) [facility] X[facility] Chest PA and LateralOrder ed By: Ccf Provider on 07-25-2021 [facility] Emergency Department Summary on 07-03-2017 [facility] [address] [place], [place] [address]Tozvpaxva Department [id number]#: [id number] Acct: [id number]: JAGDISH FABIAN Rep #: [id number]: 1960 56 From: Jorge Luis Bhatia MDPCP: Care Physician,No Primary Status: DEP ER- ER Visit SummaryDate of Service: 07/01/17Chief Complaint: High blood pressure and headacheHistory of Present Illness: The patient is a 56 M with no primary care physician. He reportshe has a headache that began yesterday. Is a throbbing pain in the occipital region that was10 out of 10 at worst and 5 out of 10 currently. Is worsened by nothing and relieved bysitting up. Ports that he went to urgent care and they measured his blood pressure today andit was elevated. He does not have a history of high blood pressure.Patient denies any chest pain, shortness of breath, numbness, weakness, or other complaints.Physical Examination:Vitals: 99.2, 204/122, 107, 18, 98% on room air which is not hypoxic.General: Well-nourished and well-developed.Head: Normocephalic atraumatic.Neck: Supple, no lymphadenopathy. No JVD. Nontender.Cardiovascul ar: Regular rate and rhythm. No murmurs.Respiratory: No respiratory distress. Clear to auscultation bilaterally.Abdominal: Soft, nontender, nondistended, normal bowel sounds. No guarding, rebound, orperitoneal signs.Back: Nontender.Extremities: Nontender, no edema.Skin: Normal color, no rash.Neurologic: Alert and oriented 3. Cranial nerves II through XII are intact. Normal strengthand sensation.Psych: Normal affect.Test Results: CT brain shows no acute disease. CBC is normal. Chem-7 is marked for glucose [id number] and BUN of 19.Emergency Department Course and Treatment: Patient was given a dose of morphine and Zofran IV.He was given a liter of normal saline. He reports that his headache has resolved. When hislabs returned he was given 500 mg of metformin p.o. and 20 mg of lisinopril p.o.Treatment Plan: Patient was discussed with Dr. Lester Fonseca. He would like to follow-up withDr. Maria. He will be discharged on metformin 500 mg p.o. twice daily and lisinopril 20 mg p.o.daily and instructed to follow-up Dr. Maria as soon as possible. Return to the emergencydepartment for any worsening symptoms.Disposition: To home in improved and stable condition.Impression: 1. Hypertension, new diagnosis.2. Diabetes mellitus, new diagnosis.This note was generated with [employer] software. It may contain incorrect words,spelling, and punctuation that were not noted in review of the chart prior to signing.ED Disposition- Plan for ED Patient:Chief Complaint: HypertensionInstructio ns: ED Hypertension New Begin Tx, ED Hyperglycemia New Susp DiabetesPrescriptions: Lisinopril 20 mg PO DAILY #30 tabletMetformin HCl 500 mg PO BID #60 tabletReferrals:Ganesh Maria MD [NON-STAFF] - As soon as possibleWhat to do if you have ProblemsFor any increased pain, shortness of breath, bleeding, nausea or vomiting, chest pain, or anyunexpected problems, contact your Primary Care Provider. Call [facility] ([phone])or report to the closest Emergency Room.Call 911 if necessary.07/03/17 0034 Date Jorge Luis Bhatia [facility]UNCAN[facility]ign Signature (If Indicated): Date __CC: No Primary Care Physician Normal [facility] Basic Metabolic Profile (BMP )on 07-01-2017 BUN (urea nitrogen) 21.8 RATIO High 10-20 [facility] Comment on above: Performed By: #### L 500.2500 ####[facility] [address] [place], [address] Calcium 9.2 mg/dL Normal 8.5-10.1 [facility] Comment on above: Performed By: #### L 500.2500 ####[facility] [address] [place], [address] Chloride 103 mmol/L Normal 98-107 [facility] Comment on above: Performed By: #### L 500.2500 ####[facility] [address] [place], [address] CO2 28.0 mmol/L Normal 21.0-32.0 [facility] Comment on above: Performed By: #### L 500.2500 ####[facility] [address] [place], [address] Creatinine 0.87 mg/dL Normal 0.70-1.30 [facility] Comment on above: Result Comment: The validity of the calculated GFR AND GFRAA in patients over70 years has not been determined. Clinical correlation isessential. Performed By: #### L 500.2500 ####[facility] [address] [place], [address] eGFR (non-black) 117 mL/min/{1.73_m2} Normal >60 [facility] Comment on above: Result Comment: Afri can [place] GFR Calc Performed By: #### L 500.2500 ####[facility] [address] [place], [address] eGFR (non-black) 97 mL/min/{1.73_m2} Normal >60 [facility] Comment on above: Result Comment: Non- GFR Calc Performed By: #### L 500.2500 ####[facility] [address] [place], [address] Estimated CRCL 106.54 ml/min Normal [facility] Comment on above: Performed By: #### L 500.2500 ####[facility] [address] [place], [address] GAP 6 Normal 5-15 [facility] Comment on above: Performed By: #### L 500.2500 ####[facility] [address] [place], [address] Glucose mass conc 335 mg/dL High 70-110 [facility] Comment on above: Result Comment: Gluc ose result greater than or equal to 200 mg/dLsuggests DIABETES MELLITUS per A.D.A. criteria. Performed By: #### L 500.2500 ####[facility] [address] [place], [address] Potassium molar conc 4.1 mmol/L Normal 3.5-5.1 [facility] Comment on above: Performed By: #### L 500.2500 ####[facility] [address] [place], [place], [address] Sodium 137 mmol/L Normal 136-145 [facility] Comment on above: Performed By: #### L 500.2500 ####[facility] [address] [place], [place], [address] Urea nitrogen 19 mg/dL High 7-18 [facility] Comment on above: Performed By: #### L 500.2500 ####[facility] [address] [place], [place], [address] Brain/Head without Contrasto n 07-01-2017 Brain/Head [facility] Contrast [facility] [address] [place], [place] [address]Zmukp/Head without ContrastMR#: [id number] Acct: [id number]: CARENJAGDISH W Rep #: [id number]: 1960 M 56 From: Yancy Kingsley MDPCP: Care Physician,No Primary Status: REG ERStudy: Brain/Head without Contrast Date of Exam: 07/01/17Exam# [id number] Ordering Dr: Jorge Luis Bhatia MDSTUDY: CT BRAIN WITHOUT CONTRASTREASON FOR EXAM: Male, 56 years old. HeadacheRADIATION DOSAGE (If Supplied By Facility): CTDIvol = ( 44.99 ) mGy, DLP =( 796.11 ) mGycmTECHNIQUE: Transaxial CT imaging of the brain was performed withoutadministration of intravenous contrast material.Individualize d dose optimization techniques were used for this CT.COMPARISON: None. FIND INGS:Normal soft tissue structures. There is a benign bone island in theclivus.Normal size ventricles and extra-axial spaces for the patient's age.Normal white matter tracts of the cerebral hemispheres. Normal basalganglia and thalami. Normal brainstem. Normal cerebellum.There is no intracranial hemorrhage. There are no findings of an acuteischemic infarction.Normal visualized paranasal sinuses. O RDER #: [id number] CT/Brain/Head without ContrastIMPRESSION:No acute intracranial abnormalities. There is no acute hemorrhage.Electronica lly Signed:Yancy Kingsley MD at 20:12 EDTTel [phone], Service support , CP: No Primary Care Physician; Jorge Luis Bhatia MD Labor And Delivery Registered Nurse:Samantha Jett [facility] CBC W/Diff, Automatedon 06-18 Absolute Neut 4.5 X10 3/uL Normal 2.0-7.7 [facility] Comment on above: Performed By: #### L 100.0100 ####[facility] [address] [place], [address] Basophils/100 WBC Auto (Bld) 0.1 % Normal 0-1 [facility] Comment on above: Performed By: #### L 100.0100 ####[facility] [address] [place], [address] Eosinophils/100 leukocytes 1.5 % Normal 0-5 [facility] Comment on above: Performed By: #### L 100.0100 ####[facility] [address] [place], [address] Erythrocyte distribution width Auto Ratio (RBC) 12.9 % Normal 11.6-14.6 [facility] Comment on above: Performed By: #### L 100.0100 ####[facility] [address] [place], [address] Erythrocytes (RBC) 4.94 M/mm3 Normal 4.6-6.2 [facility] Comment on above: Performed By: #### L 100.0100 ####[facility] [address] [place], [address] Hematocrit (HCT) 43.3 % Normal 40-54 [facility] Comment on above: Performed By: #### L 100.0100 ####[facility] [address] [place], [address] Hemoglobin mass conc (Bld) 15.2 g/dL Normal 13.0-16.5 [facility] Comment on above: Performed By: #### L 100.0100 ####[facility] [address] [place], [address] IM GRAN % 0.200 % Normal 0.0-0.9 [facility] Comment on above: Result Comment: IG% - Immature Granulocytes (promyelocytes, myelocytes andmetamyelocytes) > 1% indicates that a LEFT SHIFT is Present. Performed By: #### L 100.0100 ####[facility] [address] [place], [address] Lymphocytes 3.70 X10 3/ul Normal 0.83-4.51 [facility] Comment on above: Performed By: #### L 100.0100 ####[facility] [address] [place], [address] Lymphocytes/100 leukocytes 40.7 % Normal 19-41 [facility] Comment on above: Performed By: #### L 100.0100 ####[facility] [address] [place], [address] MCH 30.8 pg Normal 27.0-32.0 [facility] Comment on above: Performed By: #### L 100.0100 ####[facility] [address] [place], [address] MCHC mass conc (RBC) 35.1 g/gl Normal 32-36 [facility] Comment on above: Performed By: #### L 100.0100 ####[facility] [address] [place], [address] MCV 87.7 fL Normal 80-94 [facility] Comment on above: Performed By: #### L 100.0100 ####[facility] [address] [place], [address] Monocytes/100 leukocytes 7.9 % Normal 0-10 [facility] Comment on above: Performed By: #### L 100.0100 ####[facility] [address] [place], [address] Neutrophils/100 WBC Auto (Bld) 49.6 % Normal 47-70 [facility] Comment on above: Performed By: #### L 100.0100 ####[facility] [address] [place], [address] Platelet mean volume (PMV) 10.1 fL Normal 6.2-12.0 [facility] Comment on above: Performed By: #### L 100.0100 ####[facility] [address] [place], [address] Platelets 254 10*3/uL Normal 150-450 [facility] Comment on above: Performed By: #### L 100.0100 ####[facility] [address] [place], [address] RDW SD 41.2 fl Normal 35.1-43.9 [facility] Comment on above: Performed By: #### L 100.0100 ####[facility] [address] [place], [address] WBC (Leukocytes) 9.1 10*3/uL Normal 4.4-11.0 [facility] Comment on above: Performed By: #### L 100.0100 ####[facility] [address] [place], [address] Vital Signs Date Time Vital Sign Value Performing Clinician Facility 06-22-2025 13:28-0400 Body temperature 98.5 [degF] Dr. Tommy Damon DO Work Phone: [facility] 06-22-2025 13:28-0400 Diastolic blood pressure 72 mm[Hg] Dr. Tommy Damon DO Work Phone: 4(006)443-747[address] [place] [address] 06-22-2025 13:28-0400 Heart rate 97 /min Dr. Tommy Damon DO Work Phone: [facility] 06-22-2025 13:28-0400 Respiratory rate 15 /min Dr. Tommy Damon DO Work Phone: 8(574)038-273946 [address] 06-22-2025 13:28-0400 SaO2% (BldA) [Mass fraction] 95 % Dr. Tommy Damon DO Work Phone: 8(094)627-049985 [place] [address] 06-22-2025 13:28-0400 Systolic blood pressure 138 mm[Hg] Dr. Tommy Damon DO Work Phone: [facility] 06-22-2025 10:19-0400 Body height 182.[address] Tommy Damon DO Work Phone: 6(606)908-962785 [place] [address] 06-22-2025 10:19-0400 Body mass index (BMI) [Ratio] 37.3 kg/m2 Dr. Tommy Damon DO Work Phone: [facility] 06-22-2025 10:19-0400 Body weight 124.[address] Tommy Damon DO Work Phone: [facility] 06-22-2025 09:17-0400 Body mass index (BMI) [Ratio] 40.61 kg/m2 Esthela Davila APRN.WATER RESOURCE ENGINEERING SPECIALIST Work Phone: [facility] 06-22-2025 09:17-0400 Body temperature 99.19 [degF] Esthela Davila APRN.WATER RESOURCE ENGINEERING SPECIALIST Work Phone: [facility] 06-22-2025 09:17-0400 Body weight 124.74 kg Esthela Suppan TEST EXAMINER.WATER RESOURCE ENGINEERING SPECIALIST Work Phone: [facility] 06-22-2025 09:17-0400 Diastolic blood pressure 82 mm[Hg] Esthela Suppan TEST EXAMINER.WATER RESOURCE ENGINEERING SPECIALIST Work Phone: [facility] 06-22-2025 09:17-0400 Heart rate 93 /min Esthela Suppan TEST EXAMINER.WATER RESOURCE ENGINEERING SPECIALIST Work Phone: [facility] 06-22-2025 09:17-0400 SaO2% (BldA) [Mass fraction] 97 % Esthela Suppan TEST EXAMINER.WATER RESOURCE ENGINEERING SPECIALIST Work Phone: [facility] 06-22-2025 09:17-0400 Systolic blood pressure 138 mm[Hg] Esthela Suppan TEST EXAMINER.WATER RESOURCE ENGINEERING SPECIALIST Work Phone: [facility] 12-29-2024 08:30-0500 Body height 175.3 cm Jorge Maria MD Work Phone: [facility] 12-29-2024 08:30-0500 Body mass index (BMI) [Ratio] 42.38 kg/m2 Jorge Maria MD Work Phone: [facility] 12-29-2024 08:30-0500 Body weight 130.18 kg Jorge Maria MD Work Phone: [facility] 12-29-2024 08:30-0500 Diastolic blood pressure 74 mm[Hg] Jorge Maria MD Work Phone: [facility] 12-29-2024 08:30-0500 Heart rate 69 /min Jorge Maria MD Work Phone: [facility] 12-29-2024 08:30-0500 SaO2% (BldA) [Mass fraction] 98 % Jorge Maria MD Work Phone: [facility] 12-29-2024 08:30-0500 Systolic blood pressure 136 mm[Hg] Jorge Maria MD Work Phone: [facility] 12-20-2023 16:18-0500 Body height 175.3 cm Jorge Maria MD Work Phone: [facility] 12-20-2023 16:18-0500 Body weight 129.73 kg Jorge Maria MD Work Phone: [facility] 12-20-2023 16:18-0500 Diastolic blood pressure 78 mm[Hg] Jorge Maria MD Work Phone: [facility] 12-20-2023 16:18-0500 Heart rate 84 /min Jorge Maria MD Work Phone: [facility] 12-20-2023 16:18-0500 SaO2% (BldA) [Mass fraction] 99 % Jorge Maria MD Work Phone: [facility] 12-20-2023 16:18-0500 Systolic blood pressure 144 mm[Hg] Jorge Maria MD Work Phone: [facility] 10-23-2023 14:14-0500 Body weight 128.37 kg Jorge Maria MD Work Phone: [facility] 10-23-2023 14:14-0500 Diastolic blood pressure 88 mm[Hg] Jorge Maria MD Work Phone: [facility] 10-23-2023 14:14-0500 Heart rate 84 /min Jorge Maria MD Work Phone: [facility] 10-23-2023 14:14-0500 SaO2% (BldA) [Mass fraction] 97 % Jorge Maria MD Work Phone: [facility] 10-23-2023 14:14-0500 Systolic blood pressure 151 mm[Hg] Jroge Maria MD Work Phone: [facility] 02-01-2023 11:22-0400 Body weight 130.64 kg Jorge Maria MD Work Phone: [facility] 02-01-2023 11:22-0400 Diastolic blood pressure 92 mm[Hg] Jorge Maria MD Work Phone: [facility] 02-01-2023 11:22-0400 Heart rate 100 /min Jorge Maria MD Work Phone: [facility] 02-01-2023 11:22-0400 SaO2% (BldA) [Mass fraction] 97 % Jorge Maria MD Work Phone: [facility] 02-01-2023 11:22-0400 Systolic blood pressure 140 mm[Hg] Jorge Maria MD Work Phone: [facility] 02-19-2022 12:40-0400 Diastolic blood pressure 84 mm[Hg] Mi Nurse Work Phone: [facility] 02-19-2022 12:40-0400 Heart rate 86 /min Mi Nurse Work Phone: [facility] 02-19-2022 12:40-0400 Systolic blood pressure 137 mm[Hg] Mi Nurse Work Phone: [facility] Encounters Encounter Date Encounter Type Care Provider Facility Start: 06-22-2025 Non-patient / Non-visit Dr. Tommy arnold DO [facility] Work Phone: Start: 06-22-2025 Evaluation and manag ement of inpatient Dr. Tommy Worthy DO [facility] Work Phone: Start: 06-22-2025 End: 06-22-2025 Office outpatient visit 25 minutes Esthela Davila APRN.CNP Work Phone: [facility] [place] Comment on above: Open wound of left g reat toe, initial encounter (Primary Dx); Cellulitis of skin; Uncontrolled type 2 diabetes mellitus with hyperglycemia (HCC) Start: 06-19-2025 End: 06-19-2025 ambulatory Jorge Maria MD Work Phone: [facility] [place] Comment on above: Ankle Pain Start: 04-19-2025 End: 04-19-2025 Refill Jorge Maria MD Work Phone: [facility] [place] Comment on above: Refill Request Start: 04-02-2025 End: 04-02-2025 Telephone encounter Jorge Maria MD Work Phone: [facility] [place] Comment on above: Medication Problem ( Glucose Sensors) Start: 03-29-2025 End: 03-29-2025 Refill Jorge Maria MD Work Phone: [facility] [place] Comment on above: Refill Request Start: 03-02-2025 End: 03-02-2025 Refill Jorge Maria MD Work Phone: [facility] [place] Comment on above: Refill Request Start: 03-01-2025 End: 03-01-2025 ambulatory DOMITILA LIMA Facility:[facility] Start: 03-01-2025 End: 03-01-2025 Patient encounter procedure Domitila Lima Work Phone: Podiatry Comment on above: Onychomycosis (Prima ry Dx); Pain in toe of left foot; Pain in toe of right foot; Diminished pulses in lower extremity; Diabetic polyneuropathy associated with diabetes mellitus due to underlying condition (HCC); Callus of foot Start: 01-26-2025 End: 03-28-2025 Follow-up encounter Jorge Maria MD Work Phone: [facility] [place] Start: 01-26-2025 End: 02-01-2025 Telephone encounter Jorge Maria MD Work Phone: [facility] [place] Comment on above: Results Start: 01-25-2025 End: 01-25-2025 ambulatory JORGE MARIA Facility:[facility] Start: 12-29-2024 End: 12-29-2024 ambulatory [facility] Ranjan MARIA Facility:[facility] Start: 12-29-2024 End: 12-29-2024 Patient encounter procedure Jorge Maria MD Work Phone: [facility] [place] Comment on above: Hyperlipidemia, mixe d (Primary Dx); Type 2 diabetes mellitus without complication, without long-term current use of insulin (HCC); Hypertension, essential; Screening for depression; Encounter for screening examination for other mental health and behavioral disorders; Microalbuminuria; Obesity, Class III, BMI >= 40; Onychomycosis; Encounter for immunization; Nonrheumatic aortic valve stenosis Start: 12-10-2024 End: 12-10-2024 Refill Jorge Maria MD Work Phone: [facility] Comment on above: Refill Request Start: 02-26-2024 Refill Jorge Maria MD Work Phone: [facility] [place] Comment on above: Refill Request Start: 02-19-2024 Refill Jorge Maria MD Work Phone: [facility] [place] Comment on above: Refill Request Start: 02-07-2024 End: 02-07-2024 ambulatory Jorge Maria MD Work Phone: [facility] [place] Comment on above: Hypertension, essent ial (Primary Dx); Type 2 diabetes mellitus without complication, without long-term current use of insulin (HCC) Start: 02-07-2024 End: 02-07-2024 Telemedicine consultation with patient Jorge Maria MD Work Phone: [facility] [place] Start: 01-22-2024 Telephone encounter Jorge Maria MD Work Phone: [facility] [place] Comment on above: Results Start: 01-01-2024 Refill Jorge Maria MD Work Phone: [facility] [place] Comment on above: Refill Request Start: 12-27-2023 Telephone encounter Jorge Maria MD Work Phone: [facility] [place] Comment on above: Film Cath/Echo Start: 12-20-2023 End: 12-20-2023 Patient encounter procedure Jorge Maria MD Work Phone: [facility] [place] Comment on above: Hypertension, essent ial (Primary Dx); Type 2 diabetes mellitus without complication, without long-term current use of insulin (HCC); Hyperlipidemia, mixed; Microalbuminuria; Obesity, Class III, BMI >= 40; Edema, unspecified type; Leukocytosis, unspecified type; Heart murmur; Screening for colon cancer Start: 10-23-2023 End: 10-23-2023 Patient encounter procedure Jorge Maria MD Work Phone: [facility] [place] Comment on above: Type 2 diabetes eleuterio itus without complication, without long- term current use of insulin (HCC) (Primary Dx); Hypertension, essential; Edema, unspecified type; Cellulitis of skin Start: 08-21-2023 ambulatory Gabby Buxton RP h Work Phone: [facility] Start: 02-06-2023 Telephone encounter Jorge Maria MD Work Phone: [facility] Comment on above: Results (a1c) Start: 02-01-2023 End: 02-01-2023 Patient encounter procedure Jorge Maria MD Work Phone: [facility] Comment on above: Microalbuminuria (Pr imary Dx); Hypertension, essential; Type 2 diabetes mellitus without complication, without long-term current use of insulin (HCC); Hyperlipidemia, mixed; Obesity, Class III, BMI >= 40; Leukocytosis, unspecified type; Screening for colon cancer; Screening for HIV (human immunodeficiency virus) Start: 12-25-2022 Refill Roz gill [facility] Comment on above: Refill Request Start: 11-13-2022 Telephone encounter Jorge Marai MD Work Phone: [facility] Comment on above: Medication Problem Start: 08-15-2022 Refill Jorge Maria MD Work Phone: [address] [place] [address] Comment on above: Refill Request Start: 02-19-2022 End: 02-19-2022 Nursing evaluation of patient and report Mi Nurse Work Phone: [facility] Comment on above: Hypertension, essent ial (Primary Dx) Start: 01-16-2022 Telephone encounter Jorge Maria MD Work Phone: [facility] Comment on above: Insurance Authorizat ion (Trulicity ) Start: 08-30-2021 End: 08-30-2021 Subsequent hospital visit by physician Xr [facility] [place] Work Phone: Radiology Comment on above: Pneumonia due to COV ID-19 virus [U07.1, J12.82] Start: 07-25-2021 End: 07-25-2021 Subsequent hospital visit by physician Xr [facility] Yahaira Work Phone: Radiology Comment on above: Cough [R05] Start: 07-01-2017 End: 07-01-2017 Emergency department patient visit No [facility] Phys[facility] Facility:[facility] Procedures Date Procedure Procedure Detail Performing Clinician Start: 06-22-[address] Tommy Damon DO Work Phone: Start: 06-22-2025 X-ray of foot, three or more views Dr. Tommy Damon DO Work Phone: Start: 12-29-2024 Adult depression screening assessment Jorge Maria MD Work Phone: Start: 08-30-2021 Radiologic exam ches t 2 views Jorge Maria MD Work Phone: Start: 07-25-2021 Radiologic exam ches t 2 views Ashley Polanco APRN.CNP Work Phone: Start: 09-10-2019 Adult depression screening assessment Mi Nurse Work Phone: Plan of Treatment Date Care Activity Detail Author Start: 02-02-2028 PROSTATE CANCER SCREENING DISCUSSION PROSTATE CANCER SCREENING DISCUSSION [facility] Start: 02-02-2028 Prostate specific antigen measurement Prostate Cancer Screening Discussion [facility] Start: 01-12-2027 Screening for malignant neoplasm of colon [facility] Start: 06-22-2026 Annual PCP Team Chronic Disease Visit Annual PCP Team Chronic Disease Visit [facility] Start: 03-01-2026 Diabetic foot examination Diabetic Foot Exam [facility] Start: 01-25-2026 Hepatitis B screening Urine Albumin:Creatinine Ratio [facility] Start: 01-25-2026 Hepatitis B surface antibody level LDL Cholesterol [facility] Start: 12-29-2025 Annual PCP Team Chronic Disease Visit Annual PCP Team Chronic Disease Visit [facility] Start: 12-29-2025 Anxiety Screening Anxiety Screening [facility] Start: 12-29-2025 Covid-19 Vaccine ( season) Covid-19 Vaccine ( season) [facility] Comment on above: Postponed from 07/19/2024 (Declined at t his time) Start: 12-29-2025 Depression Screening Depression Screening [facility] Start: 12-29-2025 Pneumococcal Vaccine: 50+ (1 of 2 - PCV) Pneumococcal Vaccine: 50+ (1 of 2 - PCV) [facility] Comment on above: Postponed from 1981 (Declined at t his time) Start: 12-29-2025 RSV Vaccine (1 - Risk 60-74 years 1-dose series) RSV Vaccine (1 - Risk 60-74 years 1-dose series) [facility] Comment on above: Postponed from 2022 (Declined at t his time) Start: 12-29-2025 Shingrix Vaccine (1 of 2) Shingrix Vaccine (1 of 2) [facility] Comment on above: Postponed from 2012 (Declined at t his time) Start: 07-19-2025 Influenza vaccination [facility] Start: 06-28-2025 End: 06-28-2025 Patient encounter procedure 06/28/2025 2:20 PM EDT Office Visit Family [facility] [address] [place] [address] Jorge Maria MD [address] [place] [address] Physical [facility] Comment on above: Physical Start: 06-22-2025 Bacteria identified in Blood by Culture Blood Culture [facility] Start: 06-22-2025 Hospital admission, emergency, from emergency room, medical nature [facility] Start: 06-22-2025 Admission procedure [facility] Start: 06-22-2025 [facility] Start: 06-22-2025 End: 06-22-2025 Patient encounter procedure 06/22/2025 9:20 AM EDT Office Visit [facility] [address] [place] [address] Esthela Davila APRN.[employer]INEER[employer]IST [address] [place] [address] Swollen foot and ankle, big toe had blister. Blister came off and toe won't heal. Keeps seeping. PT diabetic--See triage. [facility] Comment on above: Swollen foot and ankle, big toe had blis ter. Blister came off and toe won't heal. Keeps seeping. PT diabetic--See triage. Start: 06-01-2025 End: 06-01-2025 Patient encounter procedure 06/01/2025 1:30 PM EDT Office Visit Podiatry [address] [place], [place] [id number] Domitila Lima [address] [place], [place] [id number] follow up Podiatry Comment on above: follow up Start: 05-31-2025 End: 05-31-2025 Patient encounter procedure 05/31/2025 1:30 PM EDT Office Visit Podiatry [address] [place] [id number] Domitila Lima [address] [place], [place] [id number] follow up Podiatry Comment on above: follow up Start: 05-17-2025 Influenza vaccination Influenza Vaccine (#1) [facility] Comment on above: Postponed from 07/19/2024 (Declined at t his time) Start: 04-28-2025 End: 07-28-2025 Hemoglobin A1c in Blood HEMOGLOBIN A1C Lab Routine Type 2 diabetes mellitus without complication, without long-term current use of insulin (HCC) Expected: 04/28/2025, Expires: 07/28/2025 [facility] Work Phone: Comment on above: Expected: 04/28/2025, Expires: Start: 04-27-2025 Hemoglobin A1c measurement HbA1C [facility] Start: 02-06-2025 Annual PCP Team Chronic Disease Visit Annual PCP Team Chronic Disease Visit [facility] Start: 02-05-2025 End: 02-05-2025 Patient encounter procedure 02/05/2025 10:00 AM EDT Office Visit Podiatry [address] [place], [place] [phone] Domitila Lima [address] [address] Onychomycosis [B35.1] Podiatry Comment on above: Onychomycosis [B35.1] Start: 12-29-2024 End: 03-30-2025 CBC W Auto Differential panel - Blood COMPLETE BLOOD COUNT AND DIFFERENTIAL Lab Routine Type 2 diabetes mellitus without complication, without long-term current use of insulin (HCC) Expected: 12/29/2024, Expires: 03/30/2025 [facility] Comment on above: Expected: 12/29/2024, Expires: Start: 12-29-2024 End: 03-30-2025 Comprehensive metabolic 2000 panel - Serum or Plasma COMPREHENSIVE METABOLIC PANEL Lab Routine Type 2 diabetes mellitus without complication, without long-term current use of insulin (HCC) Expected: 12/29/2024, Expires: 03/30/2025 [facility] Comment on above: Expected: 12/29/2024, Expires: Start: 12-29-2024 End: 03-30-2025 Hemoglobin A1c in Blood HEMOGLOBIN A1C Lab Routine Type 2 diabetes mellitus without complication, without long-term current use of insulin (HCC) Expected: 12/29/2024, Expires: 03/30/2025 [facility] Work Phone: Comment on above: Expected: 12/29/2024, Expires: Start: 12-29-2024 End: 03-30-2025 Lipid 1996 panel - Serum or Plasma LIPID PANEL BASIC Lab Routine Type 2 diabetes mellitus without complication, without long-term current use of insulin (HCC) Expected: 12/29/2024, Expires: 03/30/2025 [facility] Comment on above: Expected: 12/29/2024, Expires: Start: 12-29-2024 End: 03-30-2025 Microalbumin/Creatinine [Mass Ratio] in Urine ALBUMIN/CREATININE RATIO, URINE Lab Routine Type 2 diabetes mellitus without complication, without long-term current use of insulin (HCC) Expected: 12/29/2024, Expires: 03/30/2025 [facility] Comment on above: Expected: 12/29/2024, Expires: Start: 12-20-2024 Annual PCP Team Chronic Disease Visit Annual PCP Team Chronic Disease Visit [facility] Start: 10-23-2024 Annual PCP Team Chronic Disease Visit Annual PCP Team Chronic Disease Visit [facility] Start: 10-18-2024 RSV Vaccine (1 - 1-dose 60+ series) RSV Vaccine (1 - 1-dose 60+ series) [facility] Comment on above: Postponed from 2022 (Declined at t his time) Start: 10-18-2024 RSV Vaccine (1 - Risk 60-74 years 1-dose series) RSV Vaccine (1 - Risk 60-74 years 1-dose series) [facility] Comment on above: Postponed from 2022 (Declined at t his time) Start: 07-19-2024 Covid-19 Vaccine ( season) Covid-19 Vaccine ( season) [facility] Start: 07-19-2024 Influenza vaccination [facility] Start: 05-17-2024 Influenza vaccination Influenza Vaccine (#1) [facility] Comment on above: Postponed from 07/19/2023 (Declined at t his time) Start: 03-10-2024 Hemoglobin A1c measurement HbA1C [facility] Start: 02-10-2024 Hepatitis B screening Urine Albumin:Creatinine Ratio [facility] Start: 02-09-2024 Hepatitis B surface antibody level LDL CHOLESTEROL [facility] Start: 02-07-2024 End: 05-08-2024 ALBUMIN/CREAT RATIO RND UR ALBUMIN/CREAT RATIO RND UR Lab Routine Type 2 diabetes mellitus without complication, without long-term current use of insulin (HCC) Expected: 02/07/2024, Expires: 05/08/2024 [facility] Work Phone: Comment on above: Expected: 02/07/2024, Expires: 4 Start: 02-07-2024 End: 05-08-2024 Comprehensive metabolic 2000 panel - Serum or Plasma COMP METABOLIC PANEL Lab Routine Type 2 diabetes mellitus without complication, without long-term current use of insulin (HCC) Expected: 02/07/2024, Expires: 05/08/2024 [facility] Work Phone: Comment on above: Expected: 02/07/2024, Expires: 4 Start: 02-07-2024 End: 05-08-2024 Hemoglobin A1c in Blood HGB A1C Lab Routine Type 2 diabetes mellitus without complication, without long-term current use of insulin (HCC) Expected: 02/07/2024, Expires: 05/08/2024 [facility] Work Phone: Comment on above: Expected: 02/07/2024, Expires: 4 Start: 02-07-2024 End: 05-08-2024 Lipid 1996 panel - Serum or Plasma LIPID PANEL BASIC Lab Routine Type 2 diabetes mellitus without complication, without long-term current use of insulin (HCC) Expected: 02/07/2024, Expires: 05/08/2024 [facility] Work Phone: Comment on above: Expected: 02/07/2024, Expires: Start: 02-02-2024 3 comp foot exam completed DIABETIC FOOT EXAM [facility] Start: 02-02-2024 ANNUAL PCP TEAM CHRONIC DISEASE VISIT ANNUAL PCP TEAM CHRONIC DISEASE VISIT [facility] Start: 02-02-2024 COVID-19 VACCINE (#1) COVID-19 VACCINE (#1) [facility] Comment on above: Postponed from [birth year]/1963 (Declined at t his time) Start: 02-02-2024 Diabetic foot examination Diabetic Foot Exam [facility] Start: 02-02-2024 PNEUMOCOCCAL (1 - PCV) PNEUMOCOCCAL (1 - PCV) [facility] Comment on above: Postponed from 1968 (Declined at t his time) Start: 02-02-2024 Pneumococcal vaccination [facility] Comment on above: Postponed from 1968 (Declined at t his time) Start: 02-02-2024 SHINGRIX VACCINE (1 of 2) SHINGRIX VACCINE (1 of 2) [facility] Comment on above: Postponed from 2012 (Declined at t his time) Start: 02-02-2024 Urine microalbumin profile [facility] Comment on above: Postponed from 1981 (Declined at t his time) Start: 12-20-2023 End: 03-20-2024 CBC W Ordered Manual Differential panel - Blood PATHOLOGIST INTERPRETATION WITH CBC AND DIFF Lab Routine Leukocytosis, unspecified type Expected: 12/20/2023, Expires: 03/20/2024 [facility] Work Phone: Comment on above: Expected: 12/20/2023, Expires: Start: 11-18-2023 Behavioral Health Screening Behavioral Health Screening [facility] Start: 11-18-2023 Depression Assessment Depression Assessment [facility] Start: 10-19-2023 ANNUAL PCP TEAM CHRONIC DISEASE VISIT ANNUAL PCP TEAM CHRONIC DISEASE VISIT [facility] Start: 10-18-2023 Hepatitis B surface antibody level LDL CHOLESTEROL [facility] Start: 07-19-2023 Covid-19 Vaccine () Covid-19 Vaccine () [facility] Start: 07-19-2023 Influenza vaccination Influenza Vaccine (#1) [facility] Start: 05-17-2023 Influenza vaccination INFLUENZA (#1) [facility] Comment on above: Postponed from 07/19/2022 (Declined at t his time) Start: 05-04-2023 End: 07-04-2023 Hemoglobin A1c in Blood HGB A1C Lab Routine Type 2 diabetes mellitus without complication, without long-term current use of insulin (HCC) Expected: 05/04/2023, Expires: 07/04/2023 [facility] Work Phone: Comment on above: Expected: 05/04/2023, Expires: Start: 05-01-2023 Hemoglobin A1c/Hemoglobin.total in Blood HBA1C [facility] Start: 02-01-2023 End: 04-03-2023 ALBUMIN/CREAT RATIO RND UR ALBUMIN/CREAT RATIO RND UR Lab Routine Type 2 diabetes mellitus without complication, without long-term current use of insulin (HCC) Expected: 02/01/2023, Expires: 04/03/2023 [facility] Work Phone: Comment on above: Expected: 02/01/2023, Expires: Start: 02-01-2023 End: 04-03-2023 CBC W Auto Differential panel - Blood CBC + DIFF Lab Routine Leukocytosis, unspecified type Expected: 02/01/2023, Expires: 04/03/2023 [facility] Work Phone: Comment on above: Expected: 02/01/2023, Expires: 3 Start: 02-01-2023 End: 04-03-2023 HIV 1+2 Ab [Presence] in Serum or Plasma by Immunoassay HIV 1 2 COMBO(AG/AB),WITH REFLEX TO DIFFERENTIATION Lab Routine Screening for HIV (human immunodeficiency virus) Expected: 02/01/2023, Expires: 04/03/2023 [facility] Work Phone: Comment on above: Expected: 02/01/2023, Expires: 3 Start: 01-26-2023 ANNUAL PCP TEAM CHRONIC DISEASE VISIT ANNUAL PCP TEAM CHRONIC DISEASE VISIT [facility] Start: 01-16-2023 Hemoglobin A1c/Hemoglobin.total in Blood HBA1C [facility] Start: 01-13-2023 Hepatitis B surface antibody level LDL CHOLESTEROL [facility] Start: 11-18-2022 DEPRESSION ASSESSMENT DEPRESSION ASSESSMENT [facility] Start: 2022 Hepatitis B Vaccine (1 of 3 - Risk 3-dose series) Hepatitis B Vaccine (1 of 3 - Risk 3-dose series) [facility] Start: 2022 RSV Vaccine (1 - Risk 60-74 years 1-dose series) RSV Vaccine (1 - Risk 60-74 years 1-dose series) [facility] Start: 09-01-2022 3 comp foot exam completed DIABETIC FOOT EXAM [facility] Start: 09-01-2022 COVID-19 VACCINE (#1) COVID-19 VACCINE (#1) [facility] Comment on above: Postponed from [birth year]/17/1961 (Declined at t his time) Start: 09-01-2022 COVID-19 VACCINE (1) COVID-19 VACCINE (1) [facility] Comment on above: Postponed from 1967 (Declined at t his time) Start: 09-01-2022 ONE PNEUMOVAX PRIOR TO AGE 65 ONE PNEUMOVAX PRIOR TO AGE 65 [facility] Comment on above: Postponed from 1978 (Declined at t his time) Start: 09-01-2022 PNEUMOCOCCAL (1 - PCV) PNEUMOCOCCAL (1 - PCV) [facility] Comment on above: Postponed from 1968 (Declined at t his time) Start: 09-01-2022 SHINGRIX VACCINE (1 of 2) SHINGRIX VACCINE (1 of 2) [facility] Comment on above: Postponed from 2012 (Declined at t his time) Start: 09-01-2022 Urine microalbumin profile DTAP,TDAP,TD (1 - Tdap) [facility] Comment on above: Postponed from 1981 (Declined at t his time) Start: 08-30-2022 Hepatitis B screening URINE ALBUMIN:CREATININE RATIO [facility] Start: 08-03-2022 PROSTATE CANCER SCREENING DISCUSSION PROSTATE CANCER SCREENING DISCUSSION [facility] Start: 07-19-2022 Influenza vaccination [facility] Start: 04-12-2022 Hemoglobin A1c/Hemoglobin.total in Blood HBA1C [facility] Start: 11-18-2021 DEPRESSION ASSESSMENT DEPRESSION ASSESSMENT [facility] Start: 09-10-2020 Adult depression screening assessment DEPRESSION SCREENING [facility] Start: 2012 SHINGRIX VACCINE (1 of 2) SHINGRIX VACCINE (1 of 2) [facility] Start: 2007 COLOGUARD (FIT-DNA) COLOGUARD (FIT-DNA) [facility] Start: 2007 Colonoscopy COLONOSCOPY [facility] Start: 2007 COLORECTAL CANCER SCREENING COLORECTAL CANCER SCREENING [facility] Start: [address] COLONOGRAPHY [facility] Start: 2007 FECAL OCCULT BLOOD FECAL OCCULT BLOOD [facility] Start: 2007 Screening for malignant neoplasm of colon [facility] Start: 2007 SIGMOIDOSCOPY SIGMOIDOSCOPY [facility] Start: 1981 Pneumococcal Vaccine: 50+ (1 of 2 - PCV) Pneumococcal Vaccine: 50+ (1 of 2 - PCV) [facility] Start: 1981 Urine microalbumin profile [facility] Start: 1980 Anxiety Screening Anxiety Screening [facility] Start: 1980 BP CONTROLLED (<130/80) BP CONTROLLED (<130/80) [facility] Start: 1980 Depression Screening Depression Screening [facility] Start: 1980 HIV SCREENING HIV SCREENING [facility] Start: 1972 Glaucoma screening Dilated Retinal Exam [facility] Start: 1972 Hepatitis C antibody, confirmatory test DILATED RETINAL EXAM [facility] Start: 1968 PNEUMOCOCCAL (1 - PCV) PNEUMOCOCCAL (1 - PCV) [facility] Start: 1968 Pneumococcal vaccination Pneumococcal Vaccine (1 of 2 - PCV) [facility] Start: 03-17-1963 COVID-19 VACCINE (#1) COVID-19 VACCINE (#1) [facility] COLOGUARD COLOGUARD Lab Ro utine Screening for colon cancer Ordered: 02/01/2023 [facility] Work Phone: Comment on above: Ordered: 02/01/2023 COLOGUARD COLOGUARD Lab Ro utine Screening for colon cancer Ordered: 12/20/2023 [facility] Work Phone: Comment on above: Ordered: 12/20/2023 End: 12-20-2024 Echocardiography ECHO Cardiology Routine Heart murmur 1 Occurrences starting 12/20/2023 until 12/20/2024 [facility] Work Phone: Comment on above: 1 Occurrences starting 12/20/2023 until 12/20/2024 [facility] Immunizations Immunization Date Immunization Notes Care Provider Becki fenton 08-03-2017 influenza virus vacc ine, unspecified formulation Gabby Hector [facility] Work Phone: [facility] Payers Date Payer Category Payer Medicaid [id number] 2024 Unknown [id number] 2020 Unknown MMO MMO [employer] [id number] 2020-Present [phone] [address] [place] [address] PPO [id number] 2020 Unknown [id number] 2016 Unknown [id number] Social History Date Type Detail Facility Start: 07-08-2017 End: 10-19-2022 Tobacco smoking status NHIS Never smoked tobacco [facility] Start: 07-08-2017 End: 10-19-2022 Tobacco use and exposure Smokeless tobacco non-user [facility] Start: 02-19-2022 End: 06-22-2025 Alcohol intake Current drinker of alcohol (finding) [facility] Start: 07-08-2017 History SDOH Alcohol Comment social [facility] Start: 1960 Sex Assigned At Not on file [facility] Start: 06-25-2021 End: 10-19-2022 Exposure to SARS-CoV-2 (event) Not sure [facility] Start: 02-01-2023 End: 10-18-2023 History of Social function [facility] Work Phone: Start: 02-01-2023 End: 10-18-2023 Tobacco use panel [facility] Work Phone: Adult Depression Screening Assessment 0 [facility] Work Phone: Start: 1960 Sex Assigned At Male [facility] Clinical Notes 07-25-2021 to 06-22-2025 Patient InstructionsSuEsthela mathew APRN.HAYLEE - 06/22/2025 9:18 AM EDTTelephone Encounter - Maegan Oconnell RN - 06/19/2025 11:56 AM EDTTDomitila munson - 03/01/2025 1:57 PM EDT Note Date & Type Note Facility 06-22-2025 History and physi venessa note [facility] 06-22-2025 Radiology Diagnostic study note [facility] Imaging Services [address] [place] [address] Foot min 3 Views MR#: [id number] Acct: [id number] Name: JAGDISH FABIAN Rep #: [id number] : 1960 M 64 From: Garrett Sauceda MD PCP: Dr. Jorge Maria MD Status: REG E R Study:Foot min 3 Views Date of Exam: 04/11 Exam# [id number] Ordering Dr: Tommy Damon DO PROCEDURE: FOOT MIN 3 VIEWS 06/22/2025 REASON FOR EXAM: PAIN. Injury, with redness, pain, and drainage. TECHNIQUE: FOOT MIN 3 VIEWS COMPARISON: None. RAD/Foot min 3 Views IMPRESSION: No radiopaque foreign body is seen. Moderate arterial calcification is seen. On the lateral view, normal contour of the Achilles tendon is seen. A moderate inferior calcaneal spur is noted. [id number] degenerative changes of the visualized ankle joint noted. Mild degenerative changes are seen throughout the midfoot, as well as the 1st and especially 2nd tarsal-metatarsal joints. On the oblique view, there is a suggestion of fusion of the 3rd cuneiform with the 3rd metatarsal bone. Forefoot varus is seen. [id number]-[id number] degenerative changes are seen of the left 1st metatarsophalangeal joint, without significant hallux valgus deformity. No osseous destructive changes noted. No fracture or dislocation is seen. If clinical concern persists, short-term follow-up imaging may be obtained to rule out a currently occult fracture. Reading Location: [place] [address] CC: Dr. Tommy Damon DO; Dr. Jorge Maria MD ~ Labor And Delivery Registered Nurse: Signed [facility] 06-22-2025 Instructions Esthela Davila APRN.CNP - 06/22/2025 9:41 AM EDT - Please go to ER at [facility] today SHAKIR - Will call report documented in this encounter [facility] 06-22-2025 History of Present illness Narrative This is a 64 year old male who presents today with: Patient presents with: Swelling: Swelling in foot and ankle, blister on great toe HISTORY OF PRESENT ILLNESS: Jagdish Fabian is a 64 year old male. Patient presents with: Swelling: Swelling in foot and ankle, blister on great toe Raz Fabian is a 64-year-old male with a penicillin allergy, presenting with a right foot infection and associated nausea. Right Foot Infection: - Developed a blister on the right toe approximately 2 weeks ago, which contained a blood blister inside. - Blister ruptured, leading to significant skin loss on the toe. Blood blister under the original blister. - Has been applying Neosporin and other treatments without improvement. - Has not washed the foot for 2 days to allow it to scale over and reduce seepage. - Reports swelling in the right foot, but not in the left foot. - Describes a sloshing sensation in the foot, similar to a water balloon, even when not ambulating. - Pain in the toe is alleviated by relaxation. Nausea: - Persistent nausea for 4-5 days, leading to decreased oral intake. - Denies headaches or myalgias. PAST MEDICAL HISTORY: PAST MEDICAL HISTORY Diagnosis Date Diabetes mellitus, type II (HCC) Hypertension Mixed hyperlipidemia PAST SURGICAL HISTORY Procedure Laterality Date REPAIR UMBILICUS 2016 [facility] ALLERGIES Penicillins MEDICATIONS Current Outpatient Medications Medication Sig hydroCHLOROthiazide 25 mg tablet Take 1 tablet by mouth once daily. atorvastatin (LIPITOR) 40 mg tablet Take 1 tablet by mouth once daily. For cholesterol. metFORMIN (GLUCOPHAGE) 500 mg tablet TAKE TWO TABLETS BY MOUTH TWICE DAILY WITH MEALS dulaglutide (TRULICITY) 3 mg/0.5 mL pen injector Inject 3 mg subcutaneously one time a week. Inject once per week. Discard Pen After lisinopril (ZESTRIL) 40 mg tablet Take 1 tablet by mouth once daily. glimepiride (AMARYL) 4 mg tablet Take 1 tablet by mouth daily with breakfast. amLODIPine (NORVASC) 5 mg tablet Take 1 tablet by mouth once daily. metoprolol succinate ER (TOPROL XL) 100 mg Take 1 tablet by mouth once daily. flash glucose sensor (FREESTYLE LYDIA 14 DAY SENSOR) kit 1 each four times daily. urea (CARMOL) 40 % Apply to affected area once daily. (Patient not taking: Reported on 06/22/2025) flash glucose scanning reader (FREESTYLE LYDIA 14 DAY READER) 1 Each four times daily. No current facility-administered medications for this visit. FAMILY HISTORY Problem Relation Age of Onset Diabetes Mother 72 Kidney Disease Mother ESRD other (Other farm accident) Father 68 Social History Tobacco Use Smoking status: Never Smokeless tobacco: Never Substance Use Topics Alcohol use: Yes Comment: social Drug use: No REVIEW OF SYSTEMS Head: (-) headache Gastrointestinal: (+) nausea, (+) decreased appetite Musculoskeletal: (+) toe pain, (+) sloshing sensation in foot, (-) generalized body aches Skin: (+) toe blister, (+) toe drainage PHYSICAL EXAM: GENERAL: NAD, alert and oriented. SKIN: Left great toe with a nickel sized necrotic wound on distal tip- entire dorsal toe red, 1-2+ edema up to left knee. HEAD: Normocephalic. LUNGS: Clear to auscultation bilaterally, no wheezes/rhonchi/rales. HEART: Regular rate and rhythm, no murmurs. No ectopy. EXTREMITIES: Right foot with significant swelling and deep wound on the toe, signs of infection present. No deformities, no skin discoloration, no edema in other extremities. 1+ d.p. pulse. NEURO: Awake, alert and oriented x3, normal gait except for significantpain in left great toe, no involuntary motions. LABS: ASSESSMENT/PLAN: 1. Open wound of left great toe, initial encounter (S91.102A) 2. Cellulitis of skin (L03.90) - Deep, infected wound of the left great toe with associated cellulitis and swelling; patient reports nausea and decreased oral intake. Uncontrolled DM, unable to eat. - Discussed need for hospital admission for IV antibiotics, wound debridement, and imaging (MRI) to assess infection depth; explained that outpatient oral antibiotics (e.g., Augmentin) are unlikely to be effective at this stage. - Advised that delaying hospital care could result in loss of the toe; patient acknowledged understanding and agreed to hospital evaluation. - Cleaned with Betadine swab and DSD applied- Referral to podiatry for follow-up. 3. Uncontrolled type 2 diabetes mellitus with hyperglycemia (HCC) (E11.65) - Uncontrolled diabetes contributing to poor wound healing and increased infection risk. - Discussed importance of glycemic control during hospital admission to support infection management. Discussed treatment plan and patient voices understanding. Patient's questions answered appropriately. Medications and potential side effects were discussed and patient voices understanding. Return to the office as scheduled or as needed for worsening/no improvement. Esthela Davila APRN.[employer] ENGINEERING SPECIALIST documented in this encounter [facility] 06-19-2025 Telephone encounter Note Patient called for foot/ankle edema and blistered area to left great toe that has popped and is seeping clear fluid. Slight redness surrounding the blistered area. Nurse triage completed for ankle swelling and recommends see provider within 3 days. Nurse triage for left great toe recommends see provider within 24 hours. Recommended EC and patient declined. Patient agreeable to appointment on Saturday with [facility] but not Saturday. Does agree that if toe or swelling get worse that he will go to EC. Reason for Disposition MODERATE ankle swelling (e.g., interferes with normal activities, can't move joint normally) (Exceptions: Itchy, localized swelling; swelling is chronic.) Answer Assessment - Initial Assessment Questions 1. LOCATION: Left 2. ONSET: A week ago, after returning from two vacations. 3. SWELLING: - MODERATE: Swollen; interferes with normal activities (e.g., work or school); decreased range of movement; may be limping. 4. PAIN:- NONE (0): No pain. 5. CAUSE:Patient is not certain. 6. OTHER SYMPTOMS: Patient reports foot swelling and a quarter size blister that popped that is now seeping. Reports a slight red nay to the outside of the blistered area. No fever, chest pain, difficulty breathing, calf pain. Protocols used: Ankle [id number] [facility] 06-19-2025 Miscellaneous Notes Patient called for foot/ankle edema and blistered area to left great toe that has popped and is seeping clear fluid. Slight redness surrounding the blistered area. Nurse triage completed for ankle swelling and recommends see provider within 3 days. Nurse triage for left great toe recommends see provider within 24 hours. Recommended EC and patient declined. Patient agreeable to appointment on Saturday with [facility] but not Saturday. Does agree that if toe or swelling get worse that he will go to EC. Reason for Disposition MODERATE ankle swelling (e.g., interferes with normal activities, can't move joint normally) (Exceptions: Itchy, localized swelling; swelling is chronic.) Answer Assessment - Initial Assessment Questions 1. LOCATION: Left 2. ONSET: A week ago, after returning from two vacations. 3. SWELLING: - MODERATE: Swollen; interferes with normal activities (e.g., work or school); decreased range of movement; may be limping. 4. PAIN:- NONE (0): No pain. 5. CAUSE:Patient is not certain. 6. OTHER SYMPTOMS: Patient reports foot swelling and a quarter size blister that popped that is now seeping. Reports a slight red nay to the outside of the blistered area. No fever, chest pain, difficulty breathing, calf pain. Protocols used: Ankle [id number] documented in this encounter [facility] 04-19-2025 Telephone encounter Note Prescription Refill Information The patient has been identified by name and date of : Yes Caregiver verified no other encounters exist for this prescription request: Yes Caregiver confirmed with patient/requestor that no other refills are due, in the near future, with this provider at this time: Yes The last office visit in the department: 12/29/24 Does the patient have a future office visit with this provider/department: Yes Requested Prescriptions Pending Prescriptions Disp Refills hydroCHLOROthiazide 25 mg tablet 90 tablet 3 Sig: Take 1 tablet by mouth once daily. atorvastatin (LIPITOR) 40 mg tablet 90 tablet 3 Sig: Take 1 tablet by mouth once daily. For cholesterol. Maddie Merino LPN April 19, 2025 10:02 AM [facility] 04-19-2025 Miscellaneous Notes Prescription Refill Information The patient has been identified by name and date of : Yes Caregiver verified no other encounters exist for this prescription request: Yes Caregiver confirmed with patient/requestor that no other refills are due, in the near future, with this provider at this time: Yes The last office visit in the department: 12/29/24 Does the patient have a future office visit with this provider/department: Yes Requested Prescriptions Pending Prescriptions Disp Refills hydroCHLOROthiazide 25 mg tablet 90 tablet 3 Sig: Take 1 tablet by mouth once daily. atorvastatin (LIPITOR) 40 mg tablet 90 tablet 3 Sig: Take 1 tablet by mouth once daily. For cholesterol. Maddie Merino LPN April 19, 2025 10:02 AM Prescription Refill Information The patient has been identified by name and date of : Yes Caregiver verified no other encounters exist for this prescription request: Yes Caregiver confirmed with patient/requestor that no other refills are due, in the near future, with this provider at this time: Yes The last office visit in the department: 12-29-24 Does the patient have a future office visit with this provider/department: Yes Requested Prescriptions Pending Prescriptions Disp Refills hydroCHLOROthiazide 25 mg tablet 90 tablet 3 Sig: Take 1 tablet by mouth once daily. atorvastatin (LIPITOR) 40 mg tablet 90 tablet 3 Sig: Take 1 tablet by mouth once daily. For cholesterol. Yancy Marte [facility] April 19, 2025 8:24 AM documented in this encounter [facility] 04-19-2025 Telephone encounter Note Prescription Refill Information The patient has been identified by name and date of : Yes Caregiver verified no other encounters exist for this prescription request: Yes Caregiver confirmed with patient/requestor that no other refills are due, in the near future, with this provider at this time: Yes The last office visit in the department: 12-29-24 Does the patient have a future office visit with this provider/department: Yes Requested Prescriptions Pending Prescriptions Disp Refills hydroCHLOROthiazide 25 mg tablet 90 tablet 3 Sig: Take 1 tablet by mouth once daily. atorvastatin (LIPITOR) 40 mg tablet 90 tablet 3 Sig: Take 1 tablet by mouth once daily. For cholesterol. Yancy Marte [facility] April 19, 2025 8:24 AM [facility] 04-02-2025 Telephone encounter Note Called Pt and let him know that we have sent the same sensor in every time. He states he took all of the stuff into the pharmacy and they told him to call his PCP. I told him to call the town justice phone number on the sensor box and they should be able to tell him if they are the wrong ones and replace them if they were defective. Pt is going to call the town justice. Ashley Edwards RN [facility] 04-02-2025 Miscellaneous Notes Called Pt and let him know that we have sent the same sensor in every time. He states he took all of the stuff into the pharmacy and they told him to call his PCP. I told him to call the town justice phone number on the sensor box and they should be able to tell him if they are the wrong ones and replace them if they were defective. Pt is going to call the town justice. Ashley Edwards RN Patient returned missed call. PSS instructed to warm transfer patient to [place] nurse triage line. Patient ended call prior to being able to connect with a triage nurse. No available slots remaining on triage nurse call back template. Please contact the patient to assist with glucose sensors. Attempted to reach patient to see what he was given. It appears we have only ever given him one type of sensor? Patient calling to report that the pharmacy dispensed the incorrect flash glucose sensors for his scanner. Patient states the box looked different and he was unsure if there were different types of sensors. Patient brought the current refill back to the pharmacy. The pharmacy states there was no error with what was on the prescription. Please contact patient and or pharmacy to further discuss. documented in this encounter [facility] 04-02-2025 Telephone encounter Note Patient returned missed call. PSS instructed to warm transfer patient to [place] nurse triage line. Patient ended call prior to being able to connect with a triage nurse. No available slots remaining on triage nurse call back template. Please contact the patient to assist with glucose sensors. [facility] 04-02-2025 Telephone encounter Note Attempted to reach patient to see what he was given. It appears we have only ever given him one type of sensor? [facility] 04-02-2025 Telephone encounter Note Patient calling to report that the pharmacy dispensed the incorrect flash glucose sensors for his scanner. Patient states the box looked different and he was unsure if there were different types of sensors. Patient brought the current refill back to the pharmacy. The pharmacy states there was no error with what was on the prescription. Please contact patient and or pharmacy to further discuss. [facility] 03-29-2025 Telephone encounter Note Prescription Refill Information The patient has been identified by name and date of : Yes Caregiver verified no other encounters exist for this prescription request: Yes Caregiver confirmed with patient/requestor that no other refills are due, in the near future, with this provider at this time: Yes The last office visit in the department: 12/29/24 Does the patient have a future office visit with this provider/department: Yes Requested Prescriptions Pending Prescriptions Disp Refills flash glucose sensor (FREESTYLE LYDIA 14 DAY SENSOR) kit 2 kit 11 Si each four times daily. Roz Guo March 29, 2025 10:00 AM [facility] 03-29-2025 Miscellaneous Notes Prescription Refill Information The patient has been identified by name and date of : Yes Caregiver verified no other encounters exist for this prescription request: Yes Caregiver confirmed with patient/requestor that no other refills are due, in the near future, with this provider at this time: Yes The last office visit in the department: 12/29/24 Does the patient have a future office visit with this provider/department: Yes Requested Prescriptions Pending Prescriptions Disp Refills flash glucose sensor (FREESTYLE LYDIA 14 DAY SENSOR) kit 2 kit 11 Si each four times daily. Roz Guo March 29, 2025 10:00 AM documented in this encounter [facility] 03-02-2025 Telephone encounter Note Prescription Refill Information The patient has been identified by name and date of : Yes Caregiver verified no other encounters exist for this prescription request: Yes Caregiver confirmed with patient/requestor that no other refills are due, in the near future, with this provider at this time: Yes The last office visit in the department: 12/29/24 Does the patient have a future office visit with this provider/department: Yes Requested Prescriptions Pending Prescriptions Disp Refills metFORMIN (GLUCOPHAGE) 500 mg tablet 360 tablet 3 Sig: TAKE TWO TABLETS BY MOUTH TWICE DAILY WITH MEALS Nikky Gusman [facility] March 02, 2025 9:29 AM [facility] 03-02-2025 Miscellaneous Notes Prescription Refill Information The patient has been identified by name and date of : Yes Caregiver verified no other encounters exist for this prescription request: Yes Caregiver confirmed with patient/requestor that no other refills are due, in the near future, with this provider at this time: Yes The last office visit in the department: 12/29/24 Does the patient have a future office visit with this provider/department: Yes Requested Prescriptions Pending Prescriptions Disp Refills metFORMIN (GLUCOPHAGE) 500 mg tablet 360 tablet 3 Sig: TAKE TWO TABLETS BY MOUTH TWICE DAILY WITH MEALS [facility] March 02, 2025 9:29 AM documented in this encounter [facility] 03-01-2025 Note HNO ID: [id number] Author: DMOITILA LIMA, ? Service: ? Author Type: Physician Type: Progress Notes Filed: 03/02/2025 07:59 Note Text: Last saw pcp: 12/29/24 Subjective: Patient presents to clinic c/o painful toenails. They state that the nails are especially painful with shoe gear and pressure. Patient states that nails 1-5 b/l are painful. Patient admits to being diabetic. No other pedal complaints at this time. Patient states no change in medications or medical history since last visit. Objective: [facility] Vasc: DP and PT pulses are palpable bilateral. CFT is less than 5 seconds bilateral. Skin temperature is warm to cool proximal to distal bilateral. There is mild edema or varicosities noted. Neuro: Protective sensation is intact to the foot and toes when tested with the 5.07 SWM bilateral. Vibratory sensation is decreased at the hallux IPJ bilateral. The hallux is downgoing bilateral. Derm: Nails 1-5 b/l are painful, discolored-yellow, thick, crumbly, dystrophic and with subungal debris. Skin is of normal turgor, texture and hair growth is decreased bilateral. There are callus to right heel Ortho: Muscle strength is 5/5 for all pedal groups tested. Ankle joint DF is decreased with the knee extended with no pain or crepitus noted. 1st MPJ ROM is decreased bilateral. Assessment: (B35.1) Onychomycosis (primary encounter diagnosis) (M79.675) Pain in toe of left foot (M79.674) Pain in toe of right foot (R09.89) Diminished pulses in lower extremity (E08.42) Diabetic polyneuropathy associated with diabetes mellitus due to underlying condition (HCC) (L84) Callus of foot Plan: Patient was seen and evaluated. Nails 1-5 bilateral were debrided in length and thickness. Discussed options not limited to oral medication for nail discoloration, topoical medication for nail discoloration, laser therapy vs removal. If he desired removal, would need to get A1c below 8. For now, he elects for conservative care, ie debridement. Patient was instructed on the continued importance of diabetic foot care along with proper diet and keeping their blood sugar under control to prevent complications. I stressed the importance of avoiding barefoot walking, wearing good shoes and inspection of feet. Callus reduced to right heel with dremmel. Carmol 40 prescribed for callus . Patient is to RTC in 3-4 months. Domitila Lima DPM [facility] 03-01-2025 History of Present illness Narrative Last saw pcp: 12/29/24 Subjective: Patient presents to clinic c/o painful toenails. They state that the nails are especially painful with shoe gear and pressure. Patient states that nails 1-5 b/l are painful. Patient admits to being diabetic. No other pedal complaints at this time. Patient states no change in medications or medical history since last visit. Objective: Patient presents to clinic ambulating in [facility] Vasc: DP and PT pulses are palpable bilateral. CFT is less than 5 seconds bilateral. Skin temperature is warm to cool proximal to distal bilateral. There is mild edema or varicosities noted. Neuro: Protective sensation is intact to the foot and toes when tested with the 5.07 SWM bilateral. Vibratory sensation is decreased at the hallux IPJ bilateral. The hallux is downgoing bilateral. Derm: Nails 1-5 b/l are painful, discolored-yellow, thick, crumbly, dystrophic and with subungal debris. Skin is of normal turgor, texture and hair growth is decreased bilateral. There are callus to right heel Ortho: Muscle strength is 5/5 for all pedal groups tested. Ankle joint DF is decreased with the knee extended with no pain or crepitus noted. 1st MPJ ROM is decreased bilateral. Assessment: (B35.1) Onychomycosis (primary encounter diagnosis) (M79.675) Pain in toe of left foot (M79.674) Pain in toe of right foot (R09.89) Diminished pulses in lower extremity (E08.42) Diabetic polyneuropathy associated with diabetes mellitus due to underlying condition ([facility]) (L84) Callus of foot Plan: Patient was seen and evaluated. Nails 1-5 bilateral were debrided in length and thickness. Discussed options not limited to oral medication for nail discoloration, topoical medication for nail discoloration, laser therapy vs removal. If he desired removal, would need to get A1c below 8. For now, he elects for conservative care, ie debridement. Patient was instructed on the continued importance of diabetic foot care along with proper diet and keeping their blood sugar under control to prevent complications. I stressed the importance of avoiding barefoot walking, wearing good shoes and inspection of feet. Callus reduced to right heel with dremmel. Carmol 40 prescribed for callus . Patient is to RTC in 3-4 months. Domitila Lima DPM AMB ROOMING INTAKE FLOWSHEET DATA Pain Pain Level: 5 Pain Location: Toe Description: Sore Frequency: Intermittent Intervention/Comfort measure: Reposition, Relaxation Patient presents with: Left Foot - Established Patient, Nail Fungus, Diabetic Foot Care Right Foot - Established Patient, Nail Fungus, Diabetic Foot Care Linda Dumont LPN documented in this encounter [facility] 03-01-2025 Instructions Domitila Lima - 03/01/2025 1:57 PM EDT Diabetes Foot Care Instructions When you have diabetes, proper foot care is very important. Poor foot care may lead to amputation of a foot or leg. As a person with diabetes, you are more vulnerable to foot problems, because diabetes can damage your nerves and reduce blood flow to your feet. Here are some diabetes foot care tips to follow: Wash and Dry Your Feet Daily Use mild soaps Use warm water Pat your skin dry; do not rub. Thoroughly dry your feet. After washing, use lotion on your feet to prevent cracking. Do not put lotion between your toes. Examine Your Feet Each Day Check the tops and bottoms of your feet. Have someone else look at your feet if you cannot see them. Check for dry, cracked skin. Look for blisters, cuts, scratches, or other sores. Check for redness, increased warmth, or tenderness when touching any area of your feet. Check for ingrown toenails, corns, and calluses. If you get a blister or sore from your shoes, do not pop it. Apply a bandage and wear a different pair of shoes. Take Care of Your Toenails Cut toenails after bathing, when they are soft. Cut toenails straight across and smooth with a nail file. Avoid cutting into the corners of toes. Do not cut cuticles. If you have neuropathy (or decreased sensation in your feet) a explosives worker should always cut your toenails. Be Careful When Exercising Walk and exercise in comfortable shoes. Do not exercise when you have open sores on your feet. Protect Your Feet With Shoes and Socks Never go barefoot. Always protect your feet by wearing shoes or hard-soled slippers or footwear. Avoid shoes with high heels and pointed toes. Avoid shoes that expose your toes or heels (such as open-toed shoes or sandals). These types of shoes increase your risk for injury and potential infections. Try on new footwear with the type of socks you usually wear. Do not wear new shoes for more than an hour at a time. Change your socks daily. Look and feel inside your shoes before putting them on to make sure there are no foreign objects or rough areas. Avoid tight socks. Wear natural-fiber socks (cotton, wool, or a cotton-wool blend). Wear special shoes if your health care provider recommends them. Wear shoes/boots that will protect your feet from various weather conditions (cold, moisture, etc.). Make sure your shoes fit properly. If you have neuropathy (nerve damage), you may not notice that your shoes are too tight. Perform the footwear test described below. Footwear Test Use this simple test to see if your shoes fit correctly: Stand on a piece of paper. (Make sure you are standing and not sitting, because your foot changes shape when you stand.) Trace the outline of your foot. Trace the outline of your shoe. Compare the tracings: Is the shoe too narrow? Is your foot crammed into the shoe? The shoe should be at least 1/2 inch longer than your longest toe and as wide as your foot. Proper Shoe Choices The following types of shoes are best for people with diabetes Closed toes and heels Leather uppers without a seam inside At least 1/2 inch extra space at the end of your longest toe Inside of shoe should be soft with no rough areas Outer sole should be made of stiff material Shoes should be at least as wide as your feet Tips for Foot Care in Diabetes Don't wait to treat a minor foot problem if you have diabetes. Follow your health care provider's guidelines and first aid guidelines. Report foot injuries and infections to your health care provider immediately. Check water temperature with your elbow, not your foot. Do not use a heating pad on your feet. Do not cross your legs. Do not self-treat your corns, calluses, or other foot problems. Go to your health care provider or explosives worker to treat these conditions. documented in this encounter [facility] 03-01-2025 Note HNO ID: [id number] Author: LINDA DUMONT LPN Service: ? Author Type: LICENSED NURSE Type: Progress Notes Filed: 03/02/2025 07:59 Note Text: AMB ROOMING INTAKE FLOWSHEET DATA Pain Pain Level: 5 Pain Location: Toe Description: Sore Frequency: Intermittent Intervention/Comfort measure: Reposition, Relaxation Patient presents with: Left Foot - Established Patient, Nail Fungus, Diabetic Foot Care Right Foot - Established Patient, Nail Fungus, Diabetic Foot Care Linda Dumont LPN [facility] 01-26-2025 Telephone encounter Note Patient notified and voiced understanding. Patient will need a new prescription for 4.5 mg for the Trulicity. Jailene Calixto MA [facility] 01-26-2025 Miscellaneous Notes Patient notified and voiced understanding. Patient will need a new prescription for 4.5 mg for the Trulicity. Jailene Calixto MA Sugar are a lot higher. Increase trulicity to 4.5 mg a week. Call over average sugar on his cgm in two weeks. Recheck A1c in three months and follow up after. documented in this encounter [facility] 01-26-2025 Telephone encounter Note Sugar are a lot higher. Increase trulicity to 4.5 mg a week. Call over average sugar on his cgm in two weeks. Recheck A1c in three months and follow up after. [facility] 12-29-2024 History of Present illness Narrative Patient presents with: Follow Up HPI: Patient presents today for office visit for follow up. HTN: Continues Lisinopril 40 mg daily Amlodipine 5 mg daily Metoprolol 100 mg daily HCTZ 25 mg daily Does not monitor BP at home. Consistent with taking medications. Never misses doses currently but did lose coverage for a month and has been back on them. Denies chest pain and shortness of breath Denies headaches and dizziness Denies palpitations and syncope Occ swelling to left ankle. DM: Continues Glimepiride 4 mg daily Metformin 500 mg 2 tabs BID Trulicity 3 mg weekly Checking sugars 3+ times a day. Has been higher. No hypoglycemic spells No unexpected weight loss Some polyuria and polydipsia Due for eye exam Due for A1c HLD: Continues Atorvastatin 40 mg daily No myalgias Due for labs Missed his last podiatry appt. MEDICATIONS: Current Outpatient Medications Medication Sig lisinopril (ZESTRIL) 40 mg tablet Take 1 tablet by mouth once daily. amLODIPine (NORVASC) 5 mg tablet Take 1 tablet by mouth once daily. metoprolol succinate ER (TOPROL XL) 100 mg Take 1 tablet by mouth once daily. glimepiride (AMARYL) 4 mg tablet Take 1 tablet by mouth daily with breakfast. metFORMIN (GLUCOPHAGE) 500 mg tablet TAKE TWO TABLETS BY MOUTH TWICE DAILY WITH MEALS atorvastatin (LIPITOR) 40 mg tablet Take 1 tablet by mouth once daily. For cholesterol. hydroCHLOROthiazide 25 mg tablet Take 1 tablet by mouth once daily. flash glucose sensor (FREESTYLE LYDIA 14 DAY SENSOR) kit 1 Each four times daily. flash glucose scanning reader (FREESTYLE LYDIA 14 DAY READER) 1 Each four times daily. dulaglutide (TRULICITY) 3 mg/0.5 mL pen injector Inject 3 mg subcutaneously one time a week. Inject once per week. Discard Pen After No current facility-administered medications for this visit. ALLERGIES: ALLERGIES Allergen Reactions Penicillins Hives PAST MEDICAL HISTORY Diagnosis Date Diabetes mellitus, type II (HCC) Hypertension Mixed hyperlipidemia PAST SURGICAL HISTORY Procedure Laterality Date REPAIR UMBILICUS 2016 [facility] FAMILY HISTORY Problem Relation Age of Onset Diabetes Mother 72 Kidney Disease Mother ESRD other (Other farm accident) Father 68 Social History Tobacco Use Smoking status: Never Smokeless tobacco: Never Substance Use Topics Alcohol use: Yes Comment: social Drug use: No Reviewed current medications, allergies, past medical history, surgical history, family history and social history today. REVIEW OF SYSTEMS Had echo last year that showed mild aortic stenosis due to calcified valve. Recently had a uri that is getting better. All other reviewed and negative other than HPI. HEALTH MAINTENANCE: Reviewed health maintenance issues today and recommended the following in detail. Dilated Retinal Exam -recommended. Depression Screening Never done Anxiety Screening Never done BP Controlled (<130/80) Never done DTaP,Tdap,Td Vaccine(1 - Tdap) Never done Pneumococcal Vaccine: 50+(1 of 2 - PCV) Never done Shingrix Vaccine(1 of 2) Never done RSV Vaccine(1 - Risk 60-74 years 1-dose series) Never done Diabetic Foot Exam due on 02/02/2024 LDL Cholesterol due on 02/09/2024 Urine Albumin:Creatinine Ratio due on 02/10/2024 HbA1C due on 03/10/2024 Influenza Vaccine(1) due on 07/19/2024 Covid-19 Vaccine( - 2023- season) Never done VITALS: BP 136/74 Pulse 69 Ht 175.3 cm (5' 9) Wt 130.2 kg (287 lb) SpO2 98% BMI 42.38 kg/m Last 4 Encounter Wt Readings: Date: Wt: 12/20/2023 129.7 kg (286 lb) 10/23/2023 128.4 kg (283 lb) 10/18/2023 129.3 kg (285 lb) 02/01/2023 130.6 kg (288 lb) PHYSICAL EXAMINATION: General appearance: Well appearing, alert, in no acute distress, well-hydrated, well nourished. Skin: Skin color, texture, turgor normal, no suspicious rashes or lesions Head: Normocephalic, no masses, lesions, tenderness or abnormalities Lungs: Lungs clear to auscultation. No wheezing, rhonchi, rales Heart:RRR, murmur unchanged. Abdomen: Normal abdominal exam, Abdomen soft, non-tender. Bowel sounds normal. No masses, organomegaly Extremities: No deformities, edema, skin discoloration, clubbing or cyanosis. Good capillary refill. ASSESSMENT/PLAN: 1. Hyperlipidemia, mixed - ICD9: 272.2, ICD10: E78.2 (primary diagnosis) - Controlled - Continue current medications 2. Type 2 diabetes mellitus without complication, without long-term current use of insulin (HCC) - ICD9: 250.00, ICD10: E11.9 - check labs. May need adjusted. - HEMOGLOBIN A1C - LIPID PANEL BASIC - ALBUMIN/CREATININE RATIO, URINE - DULAGLUTIDE 3 MG/0.5 ML SUBCUTANEOUS PEN INJECTOR - GLIMEPIRIDE 4 MG TABLET - COMPLETE BLOOD COUNT AND DIFFERENTIAL - COMPREHENSIVE METABOLIC PANEL 3. Hypertension, essential - ICD9: 401.9, ICD10: I10 - Controlled - Continue current medications - LISINOPRIL 40 MG TABLET - AMLODIPINE 5 MG TABLET - METOPROLOL SUCCINATE ER 100 MG TABLET,EXTENDED RELEASE 24 HR 4. Screening for depression - ICD9: V79.0, ICD10: Z13.31 - DEPRESSION SCREENING 5. Encounter for screening examination for other mental health and behavioral disorders - ICD9: V79.8, ICD10: Z13.39 - ANXIETY SCREENING 6. Microalbuminuria - ICD9: 791.0, ICD10: R80.9 7. Obesity, Class III, BMI >= 40 - ICD9: 278.01, ICD10: E66.01 - stable. 8. Onychomycosis - ICD9: 110.1, ICD10: B35.1 - CONSULT TO PODIATRY 9. Nonrheumatic aortic valve stenosis - ICD9: 424.1, ICD10: I35.0 - consider repeat echo in the next year. Jorge Maria MD documented in this encounter [facility] 12-29-2024 Note HNO ID: [id number] Author: JORGE MARIA MD Service: ? Author Type: Physician Type: Progress Notes Filed: 12/29/2024 08:58 Note Text: Patient presents with: Follow Up HPI: Patient presents today for office visit for follow up. HTN: Continues Lisinopril 40 mg daily Amlodipine 5 mg daily Metoprolol 100 mg daily HCTZ 25 mg daily Does not monitor BP at home. Consistent with taking medications. Never misses doses currently but did lose coverage for a month and has been back on them. Denies chest pain and shortness of breath Denies headaches and dizziness Denies palpitations and syncope Occ swelling to left ankle. DM: Continues Glimepiride 4 mg daily Metformin 500 mg 2 tabs BID Trulicity 3 mg weekly Checking sugars 3+ times a day. Has been higher. No hypoglycemic spells No unexpected weight loss Some polyuria and polydipsia Due for eye exam Due for A1c HLD: Continues Atorvastatin 40 mg daily No myalgias Due for labs Missed his last podiatry appt. MEDICATIONS: Current Outpatient Medications Medication Sig lisinopril (ZESTRIL) 40 mg tablet Take 1 tablet by mouth once daily. amLODIPine (NORVASC) 5 mg tablet Take 1 tablet by mouth once daily. metoprolol succinate ER (TOPROL XL) 100 mg Take 1 tablet by mouth once daily. glimepiride (AMARYL) 4 mg tablet Take 1 tablet by mouth daily with breakfast. metFORMIN (GLUCOPHAGE) 500 mg tablet TAKE TWO TABLETS BY MOUTH TWICE DAILY WITH MEALS atorvastatin (LIPITOR) 40 mg tablet Take 1 tablet by mouth once daily. For cholesterol. hydroCHLOROthiazide 25 mg tablet Take 1 tablet by mouth once daily. flash glucose sensor (FREESTYLE LYDIA 14 DAY SENSOR) kit 1 Each four times daily. flash glucose scanning reader (FREESTYLE LYDIA 14 DAY READER) 1 Each four times daily. dulaglutide (TRULICITY) 3 mg/0.5 mL pen injector Inject 3 mg subcutaneously one time a week. Inject once per week. Discard Pen After No current facility-administered medications for this visit. ALLERGIES: ALLERGIES Allergen Reactions Penicillins Hives PAST MEDICAL HISTORY Diagnosis Date Diabetes mellitus, type II (HCC) Hypertension Mixed hyperlipidemia PAST SURGICAL HISTORY Procedure Laterality Date REPAIR UMBILICUS 2016 [facility] FAMILY HISTORY Problem Relation Age of Onset Diabetes Mother 72 Kidney Disease Mother ESRD other (Other farm accident) Father 68 Social History Tobacco Use Smoking status: Never Smokeless tobacco: Never Substance Use Topics Alcohol use: Yes Comment: social Drug use: No Reviewed current medications, allergies, past medical history, surgical history, family history and social history today. REVIEW OF SYSTEMS Had echo last year that showed mild aortic stenosis due to calcified valve. Recently had a uri that is getting better. All other reviewed and negative other than HPI. HEALTH MAINTENANCE: Reviewed health maintenance issues today and recommended the following in detail. Dilated Retinal Exam -recommended. Depression Screening Never done Anxiety Screening Never done BP Controlled (<130/80) Never done DTaP,Tdap,Td Vaccine(1 - Tdap) Never done Pneumococcal Vaccine: 50+(1 of 2 - PCV) Never done Shingrix Vaccine(1 of 2) Never done RSV Vaccine(1 - Risk 60-74 years 1-dose series) Never done Diabetic Foot Exam due on 02/02/2024 LDL Cholesterol due on 02/09/2024 Urine Albumin:Creatinine Ratio due on 02/10/2024 HbA1C due on 03/10/2024 Influenza Vaccine(1) due on 07/19/2024 Covid-19 Vaccine( - 2023- season) Never done VITALS: BP 136/74 Pulse 69 Ht 175.3 cm (5' 9) Wt 130.2 kg (287 lb) SpO2 98% BMI 42.38 kg/m? Last 4 Encounter Wt Readings: Date: Wt: 12/20/2023 129.7 kg (286 lb) 10/23/2023 128.4 kg (283 lb) 10/18/2023 129.3 kg (285 lb) 02/01/2023 130.6 kg (288 lb) PHYSICAL EXAMINATION: General appearance: Well appearing, alert, in no acute distress, well-hydrated, well nourished. Skin: Skin color, texture, turgor normal, no suspicious rashes or lesions Head: Normocephalic, no masses, lesions, tenderness or abnormalities Lungs: Lungs clear to auscultation. No wheezing, rhonchi, rales Heart:RRR, murmur unchanged. Abdomen: Normal abdominal exam, Abdomen soft, non-tender. Bowel sounds normal. No masses, organomegaly Extremities: No deformities, edema, skin discoloration, clubbing or cyanosis. Good capillary refill. ASSESSMENT/PLAN: 1. Hyperlipidemia, mixed - ICD9: 272.2, ICD10: E78.2 (primary diagnosis) - Controlled - Continue current medications 2. Type 2 diabetes mellitus without complication, without long-term current use of insulin (HCC) - ICD9: 250.00, ICD10: E11.9 - check labs. May need adjusted. - HEMOGLOBIN A1C - LIPID PANEL BASIC - ALBUMIN/CREATININE RATIO, URINE - DULAGLUTIDE 3 MG/0.5 ML SUBCUTANEOUS PEN INJECTOR - GLIMEPIRIDE 4 MG TABLET - COMPLETE BLOOD COUNT AND DIFFERENTIAL - COMPREHENSIVE MET (more content not included)... [facility] 12-10-2024 Telephone encounter Note The following approved medication requests have been transmitted electronically. Requested Prescriptions Pending Prescriptions Disp Refills lisinopril (ZESTRIL) 40 mg tablet 30 tablet 0 Sig: Take 1 tablet by mouth once daily. amLODIPine (NORVASC) 5 mg tablet 30 tablet 0 Sig: Take 1 tablet by mouth once daily. metoprolol succinate ER (TOPROL XL) 100 mg 30 tablet 0 Sig: Take 1 tablet by mouth once daily. glimepiride (AMARYL) 4 mg tablet 30 tablet 0 Sig: Take 1 tablet by mouth daily with breakfast. Refused Prescriptions Disp Refills hydroCHLOROthiazide 25 mg tablet 90 tablet 3 Sig: Take 1 tablet by mouth once daily. Refused By: FREDDY JARA Reason for Refusal: Patient has requested refill too soon atorvastatin (LIPITOR) 40 mg tablet 90 tablet 3 Sig: Take 1 tablet by mouth once daily. For cholesterol. Refused By: FREDDY JARA Reason for Refusal: Patient has requested refill too soon Esthela Davila APRN.[employer] ENGINEERING SPECIALIST [facility] 12-10-2024 Miscellaneous Notes The following approved medication requests have been transmitted electronically. Requested Prescriptions Pending Prescriptions Disp Refills lisinopril (ZESTRIL) 40 mg tablet 30 tablet 0 Sig: Take 1 tablet by mouth once daily. amLODIPine (NORVASC) 5 mg tablet 30 tablet 0 Sig: Take 1 tablet by mouth once daily. metoprolol succinate ER (TOPROL XL) 100 mg 30 tablet 0 Sig: Take 1 tablet by mouth once daily. glimepiride (AMARYL) 4 mg tablet 30 tablet 0 Sig: Take 1 tablet by mouth daily with breakfast. Refused Prescriptions Disp Refills hydroCHLOROthiazide 25 mg tablet 90 tablet 3 Sig: Take 1 tablet by mouth once daily. Refused By: FREDDY JARA Reason for Refusal: Patient has requested refill too soon atorvastatin (LIPITOR) 40 mg tablet 90 tablet 3 Sig: Take 1 tablet by mouth once daily. For cholesterol. Refused By: FREDDY JARA Reason for Refusal: Patient has requested refill too soon Esthela Davila APRN.W[employer] RESOURCE ENGINEERING SPECIALIST Prescription Refill Information The patient has been identified by name and date of : Yes Caregiver verified no other encounters exist for this prescription request: Yes Caregiver confirmed with patient/requestor that no other refills are due, in the near future, with this provider at this time: Yes The last office visit in the department: 02/07/2024 Does the patient have a future office visit with this provider/department: No patient to call back to schedule office visit with PCP Requested Prescriptions Pending Prescriptions Disp Refills hydroCHLOROthiazide 25 mg tablet 90 tablet 3 Sig: Take 1 tablet by mouth once daily. atorvastatin (LIPITOR) 40 mg tablet 90 tablet 3 Sig: Take 1 tablet by mouth once daily. For cholesterol. lisinopril (ZESTRIL) 40 mg tablet 90 tablet 1 Sig: Take 1 tablet by mouth once daily. amLODIPine (NORVASC) 5 mg tablet 90 tablet 3 Sig: Take 1 tablet by mouth once daily. metoprolol succinate ER (TOPROL XL) 100 mg 90 tablet 3 Sig: Take 1 tablet by mouth once daily. glimepiride (AMARYL) 4 mg tablet 90 tablet 3 Sig: Take 1 tablet by mouth daily with breakfast. Paula Tello December 10, 2024 2:10 PM documented in this encounter [facility] 12-10-2024 Telephone encounter Note Prescription Refill Information The patient has been identified by name and date of : Yes Caregiver verified no other encounters exist for this prescription request: Yes Caregiver confirmed with patient/requestor that no other refills are due, in the near future, with this provider at this time: Yes The last office visit in the department: 02/07/2024 Does the patient have a future office visit with this provider/department: No patient to call back to schedule office visit with PCP Requested Prescriptions Pending Prescriptions Disp Refills hydroCHLOROthiazide 25 mg tablet 90 tablet 3 Sig: Take 1 tablet by mouth once daily. atorvastatin (LIPITOR) 40 mg tablet 90 tablet 3 Sig: Take 1 tablet by mouth once daily. For cholesterol. lisinopril (ZESTRIL) 40 mg tablet 90 tablet 1 Sig: Take 1 tablet by mouth once daily. amLODIPine (NORVASC) 5 mg tablet 90 tablet 3 Sig: Take 1 tablet by mouth once daily. metoprolol succinate ER (TOPROL XL) 100 mg 90 tablet 3 Sig: Take 1 tablet by mouth once daily. glimepiride (AMARYL) 4 mg tablet 90 tablet 3 Sig: Take 1 tablet by mouth daily with breakfast. Paula Tello December 10, 2024 2:10 PM [facility] 02-26-2024 Miscellaneous Notes Pharmacy verified in [facility] Patient has been identified by name and date of : Yes Patient aware RX will be sent to pharmacy. No need to notify patient. Patient phones for refill(s): Requested Prescriptions Pending Prescriptions Disp Refills lisinopril (ZESTRIL) 40 mg tablet 90 tablet 3 Sig: Take 1 tablet by mouth once daily. Date of last office visit : 12/20/2023 Date of next office visit : 03/11/2024 Last 2 Encounter Wt Readings: Date: Wt: 12/20/2023 129.7 kg (286 lb) 10/23/2023 128.4 kg (283 lb) Not applicable Please advise. Yancy Martinez documented in this encounter [facility] 02-19-2024 Miscellaneous Notes Patient has been identified by name and date of : Yes, Provider Dr. Maria Date 02-19-24 Time 11:45 am Patient phones for refill(s): Requested Prescriptions Pending Prescriptions Disp Refills metFORMIN (GLUCOPHAGE) 500 mg tablet 360 tablet 3 Sig: TAKE TWO TABLETS BY MOUTH TWICE DAILY WITH MEALS atorvastatin (LIPITOR) 40 mg tablet 90 tablet 3 Sig: Take 1 tablet by mouth once daily. For cholesterol. hydroCHLOROthiazide 25 mg tablet 90 tablet 3 Sig: Take 1 tablet by mouth once daily. Date of last office visit in primary care: 12/20/2023 Date of next office visit in primary care: 03/11/2024 Please advise. Thank you. Melanie Martinez. documented in this encounter [facility] 02-07-2024 History of Present illness Narrative Patient presents with: Follow Up HPI:This Team Access Model visit is a virtual encounter. It required patient-provider interaction for the medical decision making as documented below. Patient has elected to have a visit through distance medicine I have communicated my name and active licensure. The patient's identity and physical location were verified at the time of this visit. Either the patient or their legal registration representative has been informed of the risks and benefits of -- and alternatives to -- treatment through a remote evaluation and consents to proceed with the evaluation remotely. Last ov we made a number of med changes. We changed is metoprolol We increased his dulaglutide. Echo was performed and followed his cbc. Has noted a decrease in his appetite since we changed his dose. His sugars are much better. Has been checking regularly. Edema is better. Goes away over night Dicussed support socks. No dizziness or chest pain or shortness of breath. No lightheadedness. He did not get his repeat cbc as ordered. Echo: - Technically difficult exam due to body habitus. - Exam indication: Cardiac murmur - The left ventricle is normal in size. Left ventricular systolic function is normal. EF = 59 5% (2D biplane) Indeterminate left ventricular diastolic dysfunction. - The right ventricle is normal in size. Right ventricular systolic function is normal. Note was copied and pasted, without alteration from previous ov: HTN: Metoprolol was increased at last OV to 50 mg daily Denies medication side effects Has not been monitoring BP at home Denies chest pain and shortness of breath Denies headaches and dizziness Denies palpitations Denies syncope Still with left leg edema. Has gotten better. Does not wear compression stockings. Recommended per podiatry. Discussed switching Admits to not watching his diet. Discussed weight loss and diet control. Saw Dr. Lima on 11/26/23. Vasc: getting a PVR. MEDICATIONS: Current Outpatient Medications Medication Sig flash glucose sensor ([employer] LYDIA 14 DAY SENSOR) kit 1 Each four times daily. dulaglutide (TRULICITY) 3 mg/0.5 mL pen injector Inject 3 mg subcutaneously one time a week. Inject once per week. Discard Pen After metoprolol succinate ER (TOPROL XL) 100 mg Take 1 tablet by mouth once daily. glimepiride (AMARYL) 4 mg tablet Take 1 tablet by mouth daily with breakfast. amLODIPine (NORVASC) 5 mg tablet Take 1 tablet by mouth once daily. lisinopril (ZESTRIL) 40 mg tablet Take 1 tablet by mouth once daily. metFORMIN (GLUCOPHAGE) 500 mg tablet TAKE TWO TABLETS BY MOUTH TWICE DAILY WITH MEALS hydroCHLOROthiazide 25 mg tablet Take 1 tablet by mouth once daily. atorvastatin (LIPITOR) 40 mg tablet Take 1 tablet by mouth once daily. For cholesterol. flash glucose scanning reader (FREESTYLE LYDIA 14 DAY READER) 1 Each four times daily. benzonatate (TESSALON PERLES) 100 mg capsule Take 2 capsules by mouth twice daily as needed for cough. No current facility-administered medications for this visit. ALLERGIES: ALLERGIES Allergen Reactions Penicillins Hives PAST MEDICAL HISTORY Diagnosis Date Diabetes mellitus, type II (HCC) Hypertension Mixed hyperlipidemia PAST SURGICAL HISTORY Procedure Laterality Date REPAIR UMBILICUS 2016 [facility] FAMILY HISTORY Problem Relation Age of Onset Diabetes Mother 72 Kidney Disease Mother ESRD other (Other farm accident) Father 68 Social History Tobacco Use Smoking status: Never Smokeless tobacco: Never Substance Use Topics Alcohol use: Yes Comment: social Drug use: No Reviewed current medications, allergies, past medical history, surgical history, family history and social history today. REVIEW OF SYSTEMS All other reviewed and negative other than HPI. VITALS: There were no vitals taken for this visit. Last 4 Encounter Wt Readings: Date: Wt: 12/20/2023 129.7 kg (286 lb) 10/23/2023 128.4 kg (283 lb) 10/18/2023 129.3 kg (285 lb) 02/01/2023 130.6 kg (288 lb) PHYSICAL EXAMINATION: Patient is alert and oriented during visit. Answers appropriately. ASSESSMENT/PLAN: 1. Hypertension, essential - ICD9: 401.9, ICD10: I10 (primary diagnosis) - stable after med change. 2. Type 2 diabetes mellitus without complication, without long-term current use of insulin (HCC) - ICD9: 250.00, ICD10: E11.9 - Improving control - Continue current medications - HGB A1C - COMP METABOLIC PANEL - LIPID PANEL BASIC - ALBUMIN/CREAT RATIO RND FESTUS Maria MD Get labs and rto in one month. I spent 9 minutes in the visit, with more than 50% of the total [id number] time of the visit in counseling / coordination of care. documented in this encounter [facility] 01-22-2024 Miscellaneous Notes Patient informed via VM. Advised to call back with any questions or concerns. Fay Plata MA His cologuard test was negative. I would repeat it in three years documented in this encounter [facility] 01-01-2024 Miscellaneous Notes Patient has been identified by name and date of : Yes Patient phones for refill(s): Requested Prescriptions Pending Prescriptions Disp Refills flash glucose sensor (FREESTYLE LYDIA 14 DAY SENSOR) kit 2 Kit 11 Si Each four times daily. Date of last office visit in primary care: 12/20/2023 Date of next office visit in primary care: 02/07/2024 Please send today. Please advise. Thank you. Nikky Gusman Pss. documented in this encounter [facility] 12-28-2023 Miscellaneous Notes Pt called and is notified of providers results. Pt voices understanding. Ashley Edwards RN Let him know his echo was ok documented in this encounter [facility] 12-20-2023 History of Present illness Narrative Patient presents with: Follow Up HPI: Patient presents today for office visit for follow up. HTN: Metoprolol was increased at last OV to 50 mg daily Denies medication side effects Has not been monitoring BP at home Denies chest pain and shortness of breath Denies headaches and dizziness Denies palpitations Denies syncope Still with left leg edema. Has gotten better. Does not wear compression stockings. Recommended per podiatry. Discussed switching Admits to not watching his diet. Discussed weight loss and diet control. Saw Dr. Lima on 11/26/23. Vasc: getting a PVR. See previous ov: Reports that leg is much better still on doxy. Still has to get labs. Getting better. No fever or chills. Edema is a little better. No redness. Weight is down slightly. Decreased amlodipine. Add metoprolol See previous ov: Has been out of one medication. I believe that is amaryl DM: Reports overall feeling well. Non healing wound to left leg that needs checked. Medication side effects: No. Home sugar check frequency/results:CGM 180-200 Hypoglycemic spells: No. Watching diet: yes as best as he can while traveling. Unexpected weight loss: No. Polyuria, polydipsia: No. Vision Changes: No. Foot lesions or numbness or pain: small amount of swelling. HTN: Patient is compliant with meds yes Monitors bp at home: No. Denies side effects: Yes. Chest pain: No. Dyspnea: No. Edema: some with feet but doesn't stay swollen. Palpitations: No. Syncope: No. Headache: No. Dizziness: No. Hit his leg while in [place]. Scraped. Has not healed after a few months. Is draining serous fluid No fever or chills. Has not been letting it open to air. Is slightly swollen. Swelling does go down at night. No myalgias Component Latest Ref Rng & Units 12/10/2023 WBC 3.70 - 11.00 k/uL 13.11 (H) RBC 4.20 - 6.00 m/uL 4.50 Hemoglobin 13.0 - 17.0 g/dL 13.7 Hematocrit 39.0 - 51.0 % 41.0 MCV 80.0 - 100.0 fL 91.1 MCH 26.0 - 34.0 pg 30.4 MCHC 30.5 - 36.0 g/dL 33.4 RDW-CV 11.5 - 15.0 % 13.0 Platelet Count 150 - 400 k/uL 336 MPV 9.0 - 12.7 fL 10.2 NRBC /100 WBC 0.0 Absolute nRBC <0.01 k/uL <0.01 Neut% % 50.0 Abs Neut (ANC) 1.45 - 7.50 k/uL 6.56 Lymph% % 46.0 Abs Lymph 1.00 - 4.00 k/uL 6.03 (H) Ada% % 4.0 Abs Ada <0.87 k/uL 0.52 Eosin% % 0.0 Abs Eosin <0.46 k/uL 0.00 Baso% % 0.0 Abs Baso <0.11 k/uL 0.00 Platelet Estimate Adequate Red Cell Morph Reviewed: unremarkable Polychromasia Slight DTYPE Manual Glucose 74 - 99 mg/dL 116 (H) BUN 9 - 24 mg/dL 18 Creatinine 0.73 - 1.22 mg/dL 0.66 (L) Sodium 136 - 144 mmol/L 137 Potassium 3.7 - 5.1 mmol/L 4.4 Chloride 97 - 105 mmol/L 98 CO2 22 - 30 mmol/L 26 Anion Gap 9 - 18 mmol/L 13 Calcium 8.5 - 10.2 mg/dL 9.8 eGFR >=60 mL/min/1.73m 107 Hemoglobin A1C 4.3 - 5.6 % 9.4 (H) Estimated Average Glucose mg/dL 223 MEDICATIONS: Current Outpatient Medications Medication Sig metoprolol succinate ER (TOPROL XL) 50 mg 24 hr tablet Take 1 tablet by mouth once daily. glimepiride (AMARYL) 4 mg tablet Take 1 tablet by mouth daily with breakfast. amLODIPine (NORVASC) 5 mg tablet Take 1 tablet by mouth once daily. lisinopril (ZESTRIL) 40 mg tablet Take 1 tablet by mouth once daily. metFORMIN (GLUCOPHAGE) 500 mg tablet TAKE TWO TABLETS BY MOUTH TWICE DAILY WITH MEALS hydroCHLOROthiazide 25 mg tablet Take 1 tablet by mouth once daily. atorvastatin (LIPITOR) 40 mg tablet Take 1 tablet by mouth once daily. For cholesterol. dulaglutide (TRULICITY) 1.5 mg/0.5 mL pen injector Inject 1.5 mg subcutaneously one time a week. Inject once per week. Discard Pen After flash glucose scanning reader ([employer] LYDIA 14 DAY READER) 1 Each four times daily. flash glucose sensor (FREESTYLE LYDIA 14 DAY SENSOR) kit 1 Each four times daily. benzonatate (TESSALON PERLES) 100 mg capsule Take 2 capsules by mouth twice daily as needed for cough. No current facility-administered medications for this visit. ALLERGIES: ALLERGIES Allergen Reactions Penicillins Hives PAST MEDICAL HISTORY Diagnosis Date Diabetes mellitus, type II (HCC) Hypertension Mixed hyperlipidemia PAST SURGICAL HISTORY Procedure Laterality Date REPAIR UMBILICUS 2016 [facility] FAMILY HISTORY Problem Relation Age of Onset Diabetes Mother 72 Kidney Disease Mother ESRD other (Other farm accident) Father 68 Social History Tobacco Use Smoking status: Never Smokeless tobacco: Never Substance Use Topics Alcohol use: Yes Comment: social Drug use: No Reviewed current medications, allergies, past medical history, surgical history, family history and social history today. REVIEW OF SYSTEMS All other reviewed and negative other than HPI. VITALS: BP 144/78 Pulse 84 Ht 175.3 cm (5' 9) Wt 129.7 kg (286 lb) SpO2 99% BMI 42.23 kg/m Last 4 Encounter Wt Readings: Date: Wt: 10/23/2023 128.4 kg (283 lb) 10/18/2023 129.3 kg (285 lb) 02/01/2023 130.6 kg (288 lb) 10/19/2022 131.1 kg (289 lb) PHYSICAL EXAMINATION: General appearance: Well appearing, alert, in no acute distress, well-hydrated, well nourished. Skin: Skin color, texture, turgor normal, no suspicious rashes or lesions Head: Normocephalic, no masses, lesions, tenderness or abnormalitie Lungs: Lungs clear to auscultation. No wheezing, rhonchi, rales Heart: rrr, II/ murmur noted Abdomen: Normal abdominal exam, Abdomen soft, non-tender. Bowel sounds normal. No masses, organomegaly Extremities: one plus edema. Wounds are healing. Venous stasis changes. No redness or warmth. ASSESSMENT/PLAN: 1. Hypertension, essential - ICD9: 401.9, ICD10: I10 (primary diagnosis) - Uncontrolled - Continue current medications - increase toprol and follow. Leave amlodipine as is due to edema. - METOPROLOL SUCCINATE ER 100 MG TABLET,EXTENDED RELEASE 24 HR 2. Type 2 diabetes mellitus without complication, without long-term current use of insulin (HCC) - ICD9: 250.00, ICD10: E11.9 - Uncontrolled - increase meds. - DULAGLUTIDE 3 MG/0.5 ML SUBCUTANEOUS PEN INJECTOR 3. Hyperlipidemia, mixed - ICD9: 272.2, ICD10: E78.2 - Controlled - Continue current medications 4. Microalbuminuria - ICD9: 791.0, ICD10: R80.9 - stable. 5. Obesity, Class III, BMI >= 40 - ICD9: 278.01, ICD10: E66.01 - discussed weight loss. 6. Edema, unspecified type - ICD9: 782.3, ICD10: R60.9 - elevate. Support hose. Check echo 7. Leukocytosis, unspecified type - ICD9: 288.60, ICD10: D72.829 - recently had a viral illness. Recheck. - PATHOLOGIST INTERPRETATION WITH CBC AND DIFF 8. Heart murmur - ICD9: 785.2, ICD10: R01.1 - ECHO - PERFLUTREN LIPID MICROSPHERES 1.1 MG/ML INJECTION IN NS 10 ML - SODIUM CHLORIDE 0.9 % (FLUSH) INJECTION SYRINGE 9. Screening for colon cancer - ICD9: V76.51, ICD10: Z12.11 - COLOGUARD Jorge Maria MD RTO in one month documented in this encounter [facility] 10-23-2023 Instructions Jorge Maria MD - 10/23/2023 2:32 PM EST Increase metoprolol to 50 mg a day Get labs. documented in this encounter [facility] 10-23-2023 History of Present illness Narrative Patient presents with: Follow Up HPI: Patient presents today for office visit for follow up. Reports that leg is much better still on doxy. Still has to get labs. Getting better. No fever or chills. Edema is a little better. No redness. Weight is down slightly. Decreased amlodipine. Add metoprolol See previous ov: Has been out of one medication. I believe that is amaryl DM: Reports overall feeling well. Non healing wound to left leg that needs checked. Medication side effects: No. Home sugar check frequency/results:CGM 180-200 Hypoglycemic spells: No. Watching diet: yes as best as he can while traveling. Unexpected weight loss: No. Polyuria, polydipsia: No. Vision Changes: No. Foot lesions or numbness or pain: small amount of swelling. HTN: Patient is compliant with meds yes Monitors bp at home: No. Denies side effects: Yes. Chest pain: No. Dyspnea: No. Edema: some with feet but doesn't stay swollen. Palpitations: No. Syncope: No. Headache: No. Dizziness: No. Hit his leg while in [place]. Scraped. Has not healed after a few months. Is draining serous fluid No fever or chills. Has not been letting it open to air. Is slightly swollen. Swelling does go down at night. No myalgias MEDICATIONS: Current Outpatient Medications Medication Sig glimepiride (AMARYL) 4 mg tablet Take 1 tablet by mouth daily with breakfast. amLODIPine (NORVASC) 5 mg tablet Take 1 tablet by mouth once daily. metoprolol succinate ER (TOPROL XL) 25 mg 24 hr tablet Take 1 tablet by mouth once daily. doxycycline monohydrate 100 mg tablet Take 1 tablet by mouth two times a day for 10 days. lisinopril (ZESTRIL) 40 mg tablet Take 1 tablet by mouth once daily. metFORMIN (GLUCOPHAGE) 500 mg tablet TAKE TWO TABLETS BY MOUTH TWICE DAILY WITH MEALS hydroCHLOROthiazide 25 mg tablet Take 1 tablet by mouth once daily. atorvastatin (LIPITOR) 40 mg tablet Take 1 tablet by mouth once daily. For cholesterol. dulaglutide (TRULICITY) 1.5 mg/0.5 mL pen injector Inject 1.5 mg subcutaneously one time a week. Inject once per week. Discard Pen After flash glucose scanning reader ([employer] LYDIA 14 DAY READER) 1 Each four times daily. flash glucose sensor (FREESTYLE LYDIA 14 DAY SENSOR) kit 1 Each four times daily. benzonatate (TESSALON PERLES) 100 mg capsule Take 2 capsules by mouth twice daily as needed for cough. albuterol HFA (VENTOLIN HFA) 90 mcg/actuation inhaler Inhale 2 Puffs as instructed every 4 hours as needed for wheezing/shortness of breath. No current facility-administered medications for this visit. ALLERGIES: ALLERGIES Allergen Reactions Penicillins Hives PAST MEDICAL HISTORY Diagnosis Date Diabetes mellitus, type II (HCC) Hypertension Mixed hyperlipidemia PAST SURGICAL HISTORY Procedure Laterality Date REPAIR UMBILICUS 2016 [facility] FAMILY HISTORY Problem Relation Age of Onset Diabetes Mother 72 Kidney Disease Mother ESRD other (Other farm accident) Father 68 Social History Tobacco Use Smoking status: Never Smokeless tobacco: Never Substance Use Topics Alcohol use: Yes Comment: social Drug use: No Reviewed current medications, allergies, past medical history, surgical history, family history and social history today. REVIEW OF SYSTEMS All other reviewed and negative other than HPI. HEALTH MAINTENANCE: VITALS: BP 151/88 Pulse 84 Wt 128.4 kg (283 lb) SpO2 97% BMI 41.79 kg/m Last 4 Encounter Wt Readings: Date: Wt: 10/18/2023 129.3 kg (285 lb) 02/01/2023 130.6 kg (288 lb) 10/19/2022 131.1 kg (289 lb) 01/26/2022 132.2 kg (291 lb 6.4 oz) PHYSICAL EXAMINATION: General appearance: Well appearing, alert, in no acute distress, well-hydrated, well nourished. Skin open area is now closed. Good granulation tissue. It may scar but looks much better. No redness or warmth. Ext: less edema. ASSESSMENT/PLAN: 1. Type 2 diabetes mellitus without complication, without long-term current use of insulin (HCC) - ICD9: 250.00, ICD10: E11.9 (primary diagnosis) - get labs. 2. Hypertension, essential - ICD9: 401.9, ICD10: I10 - increase metoprolol to 50 mg a day. - METOPROLOL SUCCINATE ER 50 MG TABLET,EXTENDED RELEASE 24 HR 3. Edema, unspecified type - ICD9: 782.3, ICD10: R60.9 - better on less amlodipine. 4. Cellulitis of skin - ICD9: 682.9, ICD10: L03.90 - much better. Red flags for re-assessment reviewed with patient in detail. Jorge Maria MD RTO in six weeks. documented in this encounter [facility] 08-22-2023 History of Present illness Narrative Telephoned the patient to schedule a new Primary Care pharmacy appt. Left a message. Made two attempts to contact the patient. Patient has not returned the call. Unable to send [employer] message as patient is not active. If the patient returns a call, an appt will be scheduled. Encounter routed to the clinical pharmacist. Telephoned the patient to schedule a new Primary Care pharmacy appt. Left a message. Primary Care Pharmacy Panel Management This patient has been identified through panel management efforts by the primary care pharmacy team. Please contact patient and schedule a pharmacy phone or virtual visit for diabetes management. Please use New Pharmacy, New Pharmacy Phone call, or Video Primary New visit types. Gabby Hector RPh documented in this encounter [facility] 02-09-2023 Miscellaneous Notes Patent returned office call and was relayed message. Patent voiced understanding. X2 attempt. Unable to reach patient. Left VM to return call to office. Please read below and advise. Chasidy Parker MA Left message to return call Let him know they did finally run the a1c from last week. It was 9.8. we kind of expected that. Still get the other labs as ordered but will not repeat it and continue as we discussed. documented in this encounter [facility] 02-01-2023 Instructions Jorge Maria MD - 02/01/2023 11:53 AM EDT Increase amlodipine to 10 mg Increase trulicity to 1.5 mg a week documented in this encounter [facility] 02-01-2023 History of Present illness Narrative Patient presents with: Hypertension HPI: Patient presents today for office visit for follow up . DM: Reports overall feeling well. Was out of trulicity for about a month due to shortages. Medication side effects: No. Home sugar check frequency/results:has freestyle meter back on his meds. Hypoglycemic spells: No. Watching diet: No. Unexpected weight loss: No. Polyuria, polydipsia: No. Vision Changes: No. Foot lesions or numbness or pain: No. HTN: Patient is compliant with meds Yes Monitors bp at home: Yes. Denies side effects: Yes. Chest pain: No. Dyspnea: No. Edema: No. Palpitations: No. Syncope: No. Headache: Getting more than he used to but they go away. Mild. No focal neuro issues. Wonders if related to work and stress. Dizziness: No. Reviewed labs. No myalgias. Component Latest Ref Rng & Units 01/29/2023 WBC 3.70 - 11.00 k/uL 13.18 (H) RBC 4.20 - 6.00 m/uL 4.73 Hemoglobin 13.0 - 17.0 g/dL 14.1 Hematocrit 39.0 - 51.0 % 42.9 MCV 80.0 - 100.0 fL 90.7 MCH 26.0 - 34.0 pg 29.8 MCHC 30.5 - 36.0 g/dL 32.9 RDW-CV 11.5 - 15.0 % 13.2 Platelet Count 150 - 400 k/uL 252 MPV 9.0 - 12.7 fL 10.7 Hemoglobin A1C 4.3 - 5.6 % 9.8 (H) Estimated Average Glucose mg/dL 235 MEDICATIONS: Current Outpatient Medications Medication Sig dulaglutide (TRULICITY) 0.75 mg/0.5 mL pen injector Inject 0.75 mg subcutaneously one time a week. Inject dose once per week. Discard Pen After glimepiride (AMARYL) 4 mg tablet Take 1 tablet by mouth daily with breakfast. lisinopril (ZESTRIL, PRINIVIL) 40 mg tablet Take 1 tablet by mouth once daily. amLODIPine (NORVASC) 5 mg tablet Take 1 tablet by mouth once daily. metFORMIN (GLUCOPHAGE) 500 mg tablet TAKE TWO TABLETS BY MOUTH TWICE DAILY WITH MEALS hydroCHLOROthiazide (HYDRODIURIL, ESIDRIX) 25 mg tablet Take 1 tablet by mouth once daily. atorvastatin (LIPITOR) 40 mg tablet Take 1 tablet by mouth once daily. Take 1 tablet by mouth daily at bedtime. For cholesterol. flash glucose scanning reader (FREESTYLE LYDIA 14 DAY READER) 1 Each four times daily. flash glucose sensor (FREESTYLE LYDIA 14 DAY SENSOR) kit 1 Each four times daily. benzonatate (TESSALON PERLES) 100 mg capsule Take 2 capsules by mouth twice daily as needed for cough. albuterol HFA (VENTOLIN HFA) 90 mcg/actuation inhaler Inhale 2 Puffs as instructed every 4 hours as needed for wheezing/shortness of breath. No current facility-administered medications for this visit. ALLERGIES: ALLERGIES Allergen Reactions Penicillins Hives PAST MEDICAL HISTORY Diagnosis Date Diabetes mellitus, type II (HCC) Hypertension Mixed hyperlipidemia PAST SURGICAL HISTORY Procedure Laterality Date REPAIR UMBILICUS 2016 [facility] FAMILY HISTORY Problem Relation Age of Onset Diabetes Mother 72 Kidney Disease Mother ESRD other (Other farm accident) Father 68 Social History Tobacco Use Smoking status: Never Smokeless tobacco: Never Substance Use Topics Alcohol use: Yes Comment: social Drug use: No Reviewed current medications, allergies, past medical history, surgical history, family history and social history today. REVIEW OF SYSTEMS All other reviewed and negative other than HPI. HEALTH MAINTENANCE: Reviewed health maintenance issues today and recommended the following in detail. Declines shots PNEUMOCOCCAL(1 - PCV) Never done DILATED RETINAL EXAM Never done HIV SCREENING Never done BP CONTROLLED (<130/80) Never done DTAP,TDAP,TD(1 - Tdap) Never done COLORECTAL CANCER SCREENING-declines colonoscopy SHINGRIX VACCINE(1 of 2) Never done PROSTATE CANCER SCREENING DISCUSSION -Had discussion with patient regarding risks and benefits of prostate screening. Allowed them to decide if they wished to proceed with screening including NINA and PSA. URINE ALBUMIN:CREATININE RATIO due on 08/30/2022 DIABETIC FOOT EXAM due on 09/01/2022 DEPRESSION ASSESSMENT due on 11/18/2022 VITALS: BP 140/92 Pulse 100 Wt 130.6 kg (288 lb) SpO2 97% BMI 42.53 kg/m Last 4 Encounter Wt Readings: Date: Wt: 10/19/2022 131.1 kg (289 lb) 01/26/2022 132.2 kg (291 lb 6.4 oz) 01/15/2022 129.7 kg (286 lb) 09/01/2021 126.6 kg (279 lb) PHYSICAL EXAMINATION: General appearance: Well appearing, alert, in no acute distress, well-hydrated, well nourished. Skin: Skin color, texture, turgor normal, no suspicious rashes or lesions Head: Normocephalic, no masses, lesions, tenderness or abnormalities Neck: Supple, no adenopathy; thyroid symmetric, normal size, no bruits Lungs: Lungs clear to auscultation. No wheezing, rhonchi, rales Heart: RRR without murmur, gallop, or rubs. No ectopy Abdomen: Normal abdominal exam, Abdomen soft, non-tender. Bowel sounds normal. No masses, organomegaly Extremities: No deformities, edema, skin discoloration, clubbing or cyanosis. Good capillary refill. Musculoskeletal: No joint swelling, deformity, or tenderness Feet:Shoes and socks removed, No deformities, ulcers, calluses, normal distal pulses, sensitive to 10 gm monofilament, and nails notable for Crumbly, Deformed, Hypertrophic, or Yellowish ASSESSMENT/PLAN: 1. Microalbuminuria - ICD9: 791.0, ICD10: R80.9 (primary diagnosis) - continue arb. Get better bp control 2. Hypertension, essential - ICD9: 401.9, ICD10: I10 - increase amlodipine. Recheck in one month - LISINOPRIL 40 MG TABLET - HYDROCHLOROTHIAZIDE 25 MG TABLET 3. Type 2 diabetes mellitus without complication, without long-term current use of insulin (HCC) - ICD9: 250.00, ICD10: E11.9 - increase trulicity. - METFORMIN 500 MG TABLET - DULAGLUTIDE 1.5 MG/0.5 ML SUBCUTANEOUS PEN INJECTOR - HGB A1C - ALBUMIN/CREAT RATIO RND UR 4. Hyperlipidemia, mixed - ICD9: 272.2, ICD10: E78.2 - to be determined upon return of lab results - Continue current medication. - ATORVASTATIN 40 MG TABLET 5. Obesity, Class III, BMI >= 40 - ICD9: 278.01, ICD10: E66.01 6. Leukocytosis, unspecified type - ICD9: 288.60, ICD10: D72.829 - recheck - CBC + DIFF 7. Screening for colon cancer - ICD9: V76.51, ICD10: Z12.11 - COLOGUARD 8. Screening for HIV (human immunodeficiency virus) - ICD9: V73.89, ICD10: Z11.4 - hiv Jorge Maria RTO in one month and prn. documented in this encounter [facility] 12-25-2022 Miscellaneous Notes Patient is requesting a new script for his Freestyle Patch that goes on his arm. Please review. Patient has been identified by name and date of : Yes Last office visit in this department: 10/19/2022 RX INSTRUCTIONS: Patient aware RX will be sent to pharmacy. No need to notify patient. Patient phones requesting refills as follows: Requested Prescriptions Pending Prescriptions Disp Refills flash glucose scanning reader (FREESTYLE LYDIA 14 DAY READER) 1 Each 0 Si Each four times daily. flash glucose sensor (FREESTYLE LYDIA 14 DAY SENSOR) kit 2 Kit 11 Si Each four times daily. Please review and advise. HAYDEE Wagner documented in this encounter [facility] 11-16-2022 Miscellaneous Notes Patient phoned to check if pcp ordered a substitute for ozempic. Patient was not aware trulicity weekly injection was sent to [facility]. States his son is ok with giving him the injection. Patient will pick it up today and call back with any questions or concerns. Pt called back and if states is the new med would be a pen this would be tolerable. But if it is needles he can't do. Please review advise pt. Pt is willing to go back on the Januvia is needed. .Mica Aggarwal LPN Detailed message left for patient. Asked that he call back and speak with nurse The issue is that everybody is using it for weight loss so supplies are limited.is he able to get trulicity. I know we have been able to get lower dose trulicity for most people can try a daily med like byetta Raz is calling about his Ozempic. Ozempic has been on back order at his pharmacy for the last 3 weeks (since last ordered). He spoke to pharmacy recently and they informed him that it might be discontinued. He has been without sugar medicine through the holidays and would like to know what to do. If he needs to go back to the original medication he is fine with that. He just needs directions. Raz: [phone] Ok to leave message Pharmacy is [facility] in [place]. documented in this encounter [facility] 08-15-2022 Miscellaneous Notes ALIYAH 01/26/22 NOV 10/19/22 Patient has been identified by name and date of : Yes Last office visit in this department: Visit date not found RX INSTRUCTIONS: Patient aware RX will be sent to pharmacy. No need to notify patient. Patient phones requesting refills as follows: Requested Prescriptions Pending Prescriptions Disp Refills glimepiride (AMARYL) 4 mg tablet 30 tablet 11 Sig: Take 1 tablet by mouth daily with breakfast. lisinopril (ZESTRIL, PRINIVIL) 40 mg tablet 90 tablet 1 Sig: Take 1 tablet by mouth once daily. amLODIPine (NORVASC) 5 mg tablet 90 tablet 1 Sig: Take 1 tablet by mouth once daily. metFORMIN (GLUCOPHAGE) 500 mg tablet 360 tablet 1 Sig: TAKE TWO TABLETS BY MOUTH TWICE DAILY WITH MEALS Please review and advise. Karena Martinez documented in this encounter [facility] 03-02-2022 Miscellaneous Notes OV 01/26/22 states pt started a new med since this denied. Closing this encounter. Anne-Marie Nur LPN Still awaiting paper fax from insurance. PA wasn't denied, so there is no appeal option- its stating it is just not an option for coverage. Will route once received. Anne-aMrie Nur LPN Patient was notified and routed TE to prior auth Vanessa Mckeon Ma Let him know his insurance is apparently turning it down with no chance for appeal. I want to see what the actual paper work says to see if there are any options that are similar. No alternatives listed or reason why not covered. Still waiting for faxed response Vanessa Mckeon Ma Did they let us know if there are any alternatives? PA was submitted for Trulicity to patient insurance. Insurance states drug is not on plan and will not accept prior authorization as it is not covered. Lundberg:[id number] Please advise documented in this encounter [facility] 02-19-2022 History of Present illness Narrative Manual Readin/94 Pulse: 84 BP Rivas average: 137/84 P: 86 Repeat BP Check: 145/83 P84 #1 145/87 P89 #2 139/82 P86 #3 133/82 P83 #4 131/84 P88 #5 128/83 P86 #6 Reason for blood pressure check - Last BP elevated and Medication adjustment Patient is: Taking medication as prescribed Yes Took medication today Yes If no, date medication last taken N/A Experiencing side effects No BP was elevated at last appt 01/26/22. HCTZ was increased to 25mg daily. Tolerating medication change well. Denies any chest pain, shortness of breath, dizziness, or headaches. No caffeine use. No personal history of tobacco use; no current exposure. Alert and oriented. Pt has been identified by name and birthdate: Yes Allergies reviewed: Yes Latex allergy: no. Medication - prescribed and OTC reviewed and updated: Yes Do you need any prescription refills prior to your next visit: No Health Maintenance: Reviewed and not up to date and provider notified Patient advised that he would be contacted after review by PCP. Anabel Levy LPN documented in this encounter [facility] 08-30-2021 History of Present illness Narrative Radiology Service Progress Note PATIENT NAME: Jagdish Fabian DATE OF SERVICE: August 30, 2021 TIME: 9:17 AM PATIENT IDENTITY VERIFICATION COMPLETED USING TWO (2) IDENTIFIERS: Name and Date of confirmed by patient verbally. FALL SCREENING: Has the patient had 2 falls in the last year or 1 fall with injury or currently using an Ambulatory Assistive Device (Walker, Cane, Wheelchair, Crutches, etc.)? No PATIENT GENDER DATA: Male PATIENT RELEVANT IMPLANT DATA REVIEWED: Not Applicable RADIOLOGY DEPARTMENT: General X-ray: Exam(s) Completed: Chest X-Ray PERIPHERAL IV DATA: Not applicable SIGNED BY: RT Nedra(R) August 30, 2021 9:17 AM documented in this encounter [facility] 07-25-2021 History of Present illness Narrative Radiology Service Progress Note PATIENT NAME: Jagdish Fabian DATE OF SERVICE: July 25, 2021 TIME: 12:58 PM PATIENT IDENTITY VERIFICATION COMPLETED USING TWO (2) IDENTIFIERS: Name and Date of confirmed by patient verbally. FALL SCREENING: Has the patient had 2 falls in the last year or 1 fall with injury or currently using an Ambulatory Assistive Device (Walker, Cane, Wheelchair, Crutches, etc.)? No PATIENT GENDER DATA: Male PATIENT RELEVANT IMPLANT DATA REVIEWED: Yes RADIOLOGY DEPARTMENT: General X-ray: Exam(s) Completed: Chest X-Ray PERIPHERAL IV DATA: Not applicable SIGNED BY: RT Shadia(R) July 25, 2021 12:58 PM documented in this encounter [facility] Evaluation note Diagnosis Hypertension, essential- Primary Unspecified essential hypertension [facility] Diagnosis Type 2 diabetes mellitus without complication, without long-term current use of insulin (HCC) Hypertension, essential Unspecified essential hypertension Microalbuminuria Proteinuria documented in this encounter [facility] note* Diagnosis Type 2 diabetes mellitus without complication, without long-term current use of insulin (HCC)- Primary [facility]* Diagnosis Type 2 diabetes mellitus without complication, without long-term current use of insulin (HCC) documented in this encounter [facility] [facility] Diagnosis Microalbuminuria- Primary Proteinuria Hypertension, essential Unspecified essential hypertension Type 2 diabetes mellitus without complication, without long-term current use of insulin (HCC) Hyperlipidemia, mixed Mixed hyperlipidemia Obesity, Class III, BMI >= 40 Morbid obesity Leukocytosis, unspecified type Screening for colon cancer Special screening for malignant neoplasms, colon Screening for HIV (human immunodeficiency virus) Special screening examination for other specified viral diseases documented [facility] encounter [facility]* Diagnosis Type 2 diabetes mellitus without complication, without long-term current use of insulin (HCC)- Primary Hypertension, essential Unspecified essential hypertension Edema, unspecified type Cellulitis of skin Cellulitis and abscess of unspecified site documented [facility] this encounter [facility]* Diagnosis Hypertension, essential- Primary Unspecified essential hypertension Type 2 diabetes mellitus without complication, without long-term current use of insulin (HCC) Hyperlipidemia, mixed Mixed hyperlipidemia Microalbuminuria Proteinuria Obesity, Class III, BMI >= 40 Morbid obesity Edema, unspecified type Leukocytosis, unspecified type Heart murmur Undiagnosed cardiac murmurs Screening for colon cancer Special screening for malignant neoplasms, colon documented in this encounter [facility] note* Diagnosis Type 2 diabetes mellitus without complication, without long-term current use of insulin (HCC) documented in this encounter [facility]* Diagnosis Hypertension, essential- Primary Unspecified essential hypertension Type 2 diabetes mellitus without complication, without long-term current use of insulin (HCC) documented in this encounter [facility]* Diagnosis Type 2 diabetes mellitus without complication, without long-term current use of insulin (HCC) Hyperlipidemia, mixed Mixed hyperlipidemia Hypertension, essential Unspecified essential hypertension documented in this encounter [facility]* Diagnosis Hypertension, essential Unspecified essential hypertension documented in this encounter [facility] note* Diagnosis Pneumonia due to COVID-19 virus documented [facility] this encounter [facility]* Diagnosis Cough documented in this encounter [facility]* Diagnosis Hypertension, essential Unspecified essential hypertension Hyperlipidemia, mixed Mixed hyperlipidemia Type 2 diabetes mellitus without complication, without long-term current use of insulin (HCC) documented in this encounter [facility]* Diagnosis Hyperlipidemia, mixed- Primary Mixed hyperlipidemia Type 2 diabetes mellitus without complication, without long-term current use of insulin (HCC) Hypertension, essential Unspecified essential hypertension Screening for depression Encounter for screening examination for other mental health and behavioral disorders Microalbuminuria Proteinuria Obesity, Class III, BMI >= 40 Morbid obesity Onychomycosis Dermatophytosis of nail Encounter for immunization Need for other specified prophylactic vaccination against single bacterial disease Nonrheumatic aortic valve stenosis Aortic valve disorders documented [facility] this encounter [facility]* Diagnosis Type 2 diabetes mellitus without complication, without long-term current use of insulin (HCC) documented in this encounter [facility] note* Diagnosis Onychomycosis- Primary Dermatophytosis of nail Pain in toe of left foot Pain in limb Pain in toe of right foot Pain in limb Diminished pulses in lower extremity Other symptoms involving cardiovascular system Diabetic polyneuropathy associated with diabetes mellitus due to underlying condition (HCC) Callus of foot Corns and callosities documented in this encounter [facility]* Diagnosis Type 2 diabetes mellitus without complication, without long-term current use of insulin (HCC) documented [facility] this encounter [facility]* Diagnosis Hypertension, essential Unspecified essential hypertension Hyperlipidemia, mixed Mixed hyperlipidemia [facility] Diagnosis Onset Date Resolution Status Admit Date Diabetic foot ulcer acute Augus t 2024 1:05pm [facility] Work Phone: Evaluation note* Diagnosis Open wound of left great toe, initial encounter- Primary Cellulitis of skin Cellulitis and abscess of unspecified site Uncontrolled type 2 diabetes mellitus with hyperglycemia (HCC) [facility] encounter [facility] Author Tommy Worthy [facility] Note Date/Time June 22, 2025 1:4 6pm [facility] Medical Records Department [address] [place] [address] H&P Exam - Hospitalist 06/22/25 1340 MR#: [id number] Acct: [id number] Name: JAGDISH FABIAN Rep #:[id number] : 1960 64 From: Tommy Worthy DO PCP: Dr. Jorge Maria MD Status:ADM I N Location: MS3 [id number] HPI - General General Date of Admission: 06/22/25 Date of Service: 06/22/25 Chief Complaint: Foot wound HPI Narrative JAGDISH FABIAN, is a 64 M who presents to the emergency room with a foot wound. About a month or so ago, patient was on vacation and walking on the beach. He has neuropathy so does not recall any instance where he injured his foot but when he came home he noticed a big blister on the distal aspect of his left great toe. Eventually did unroofed and it bled. He has been caring for it but is been having very serous drainage. He had made an appointment with his PCP last week and he saw them today and they sent him to the emergency room. Patient had an x-ray that showed no acute process but the patient did receive vancomycin and meropenem. Patient notes that his left toe has gotten more red over the past week. [facility] Medical History Neuropathy Hypertension Diabetes Home Medications ?Medication ?Instructions ?Recorded ?Last Taken ?Type lisinopril 20 mg tablet 20 mg PO DAILY blood pressur e #30 07/01/17 Unknown Rx tabs metformin 500 mg tablet 500 mg PO BID blood sugar #6 0 tabs 07/01/17 Unknown Rx amlodipine 5 mg tablet 5 mg PO DAILY blood pressure 06/22/25 Unknown History atorvastatin 40 mg tablet 40 mg PO DAILY cholesterol 0 06/22/25 Unknown History dulaglutide 3 mg/0.5 mL 3 mg subcut QWEEK blood suga r 06/22/25 Unknown History subcutaneous pen injector (Trulicity) glimepiride 4 mg tablet 4 mg PO DAILY blood pressure 06/22/25 Unknown History hydrochlorothiazide 25 mg tablet 25 mg PO DAILY blood pressure 06/22/25 Unknown History metoprolol succinate 100 mg 100 mg PO DAILY blood pres sure 06/22/25 Unknown History tablet,extended release 24 hr Allergy/AdvReac Type Severity Reaction Status Date / Time Penicillins (PCN) Allergy Rash Verified 06/22/25 10:21 Family History (Updated 06/22/25 @ 13:[address] Tommy Worthy DO) Other Diabetes Surgical History no surgical history Social History Smoking Status: Never smoker ROS ROS Narrative All review of systems were negative except as mentioned above in the history of present illness and the other review of systems. Vital Signs Vital Signs Vital Signs: 06/22/25 10:19 06/22/25 11:20 06/22/25 12:00 Temperature 37.3 C H 37.0 C 36.9 C Temperature Source Temporal Oral Oral Pulse Rate 99 96 84 Respiratory Rate 20 H 18 20 H Blood Pressure 118/85 H 144/78 H 148/75 H Blood Pressure Mean 96 100 99 Pulse Ox 98 98 98 Oxygen Delivery Method Room Air Room Air Room Air 06/22/25 13:28 Temperature 36.9 C Temperature Source Pulse Rate 97 Respiratory Rate 15 Blood Pressure 138/72 H Blood Pressure Mean 94 Pulse Ox 95 Oxygen Delivery Method Weight Weight: 124.738 kg Body Mass Index (BMI) 37.3 Physical Exam Narrative - Physical Exam General: Alert, Oriented x3, Cooperative HEENT: Atraumatic, PERRLA, EOMI, Normocephalic Oral: Moist Mucosa, No Gingival or Mucosal Lesions/ Ulcerations Neck: Supple, No JVD, Negative Carotid Bruits Lungs: Clear to auscultation, Normal air movement Cardiovascular: Regular rate, Normal S1, Normal S2, No murmurs Abdomen: Bowel Sounds Present, Soft, Non Tender, Non-Distended, No Hepato-splenomegaly Extremities: No clubbing, No cyanosis, No edema, Capillary Refill Less than 3 Seconds Skin: Eschar over the distal left great toe. Thickening of the toenails throughout. Does have erythema extending up his left toe but no lymphangitis noted. Musculoskeletal: No Tenderness to Palpation of Joints or Extremities Neurological: Neuro grossly intact Psych/Mental Status: Normal Affect, Appropriate Results Lab / Micro Data Attestation: I reviewed the patient's lab results. 06/22/25 11:36 06/22/25 11:36 Labs: Laboratory Results - last 24 hr 06/22/25 11:36: WBC 12.6 H, RBC 4.25 L, Hgb 12.7 L, Hct 38.5 L, MCV 90.6, MCH 29.9, MCHC 33.0, RDW Std Deviation 42.3, RDW Coeff of Domenica 12.7, Plt Count 290, MPV 10.2, Immature Gran % (Auto) 0.500, Neut % (Auto) 80.5 H, Lymph % (Auto) 12.0 L, Ada % (Auto) 6.7, Eos % (Auto) 0.0, Baso % (Auto) 0.3, Absolute Neuts (auto) 10.1 H, Absolute Lymphs (auto) 1.51, Nucleated RBC % 0, PT 15.2 H, INR 1.2, APTT 31.0, Sodium 131 L, Potassium 4.3, Chloride 93 L, Carbon Dioxide 23.4,Anion Gap 14, BUN 33 H, Creatinine 1.06, Estim Creat Clear Calc 98.58, Est GFR (MDRD) Non-Af 79, BUN/Creatinine Ratio 31.5 H, Glucose 297 H, Lactic Acid 2.5 H*, Calcium 9.3 Imaging Radiology Impression Foot X-Ray 06/22/25 11:06 IMPRESSION: No radiopaque foreign body is seen. Moderate arterial calcification is seen. On the lateral view, normal contour of the Achilles tendon is seen. A moderate inferior calcaneal spur is noted. [id number] degenerative changes of the visualized ankle joint noted. Mild degenerative changes are seen throughout the midfoot, as well as the 1st and especially 2nd tarsal-metatarsal joints. On the oblique view, there is a suggestion of fusion of the 3rd cuneiform with the 3rd metatarsal bone. Forefoot varus is seen. Geqd-[id number] degenerative changes are seen of the left 1st metatarsophalangeal joint, without significant hallux valgus deformity. No osseous destructive changes noted. No fracture or dislocation is seen. If clinical concern persists, short-term follow-up imaging may be obtained to rule out a currently occult fracture. Reading Location: [place] [address] Assessment & Plan Assessment/Plan (1) Diabetic foot ulcer: PLAN: Onset was about 3 weeks ago and has not completely healed though he does have an eschar/scab over his distal left toe. Will check an MRI to evaluate for any osteomyelitis Continue antibiotics with vancomycin and meropenem (patient has a penicillin allergy) Check wound culture Patient states that he has a explosives worker associated with [facility]. He does not recall that individual's name. I went through [employer] and using the patient's name and Social Security number and there was no matches found. Informed the patient that I was unable to find the name of the explosives worker that he is seen through [facility]. Sensors no urgency recommended that when someone goes home if they could let us know who his explosives worker is to see if theycan be available to evaluate the patient. PLAN: Plan Diabetes mellitus type 2, sign scale insulin. Check an A1c. Continue with glimepiride and metformin Hypertension: Continue with HCTZ, amlodipine, metoprolol succinate and lisinopril. VTE prophylaxis with enoxaparin Charges/Coding Visit Charges Inpatient E&M: 69294 Init Hosp L2 06/22/25 1346 <Electronically signed by Tommy Worthy DO> Cosigner Signature (if applicable): CC: Dr. Tommy Worthy DO; Dr. Jorge Maria MD~ Signed [facility] Work Phone: Reason for referral (narrative)* Outpatient Procedure (Routine) - Authorized Specialty Diagnoses / Procedures Referred By Contrichard t Referred To [facility] Diagnoses Heart murmur Procedures ECHO ECHO TTHRC R-T 2D W/WOM-MODE COMPL SPEC&COLR D Jorge Maria MD [address] [place] [address] [facility] [address] [place] [address] Referral ID Status Reason Start Date Expiration Date Visits Requested Visits Authorized [id number] Authorized Auto-Generat ed Referral 12/20/2023 12/19/2024 1 1 * Medication Prior Authorization - Closed Specialty Diagnoses / Procedures Referred By Contac t Referred To Contact Diagnoses Type 2 diabetes mellitus without complication, without long-term current use of insulin ([facility]) Jorge Maria MD [address] [place] [id number] Referral ID Status Reason Start Date Expiration Date Visits Re quested Visits Authorized [id number] Closed 1 1 [facility] for referral (narrative)No reason for referral information [facility] Work Phone: Summary Purpose Family History Relationship Condition Age at Onset Recorded Date/T ernie Not Specified Diabetes mellitus Unknown Advance Directives Advance Directive Response Recorded Date/ Time Do you have a Healthcare Power of Inside Sales Account Executive? No June 22, 2025 10:41am Reason for Referral Specialty Diagnoses / Procedures Referred By Nicolasa t Referred To Contact Diagnoses Type 2 diabetes mellitus without complication, without long-term current use of insulin ([facility]) [place] [address] [place] [id number] Referral ID Status Reason Start Date Expiration Date Visits Re quested Visits Authorized [id number] Closed 1 1 Referral ID Status Reason Start Date Expiration Date Visits Re quested Visits Authorized [id number] Closed 1 1 Specialty Diagnoses / Procedures Referred By Nicolasa t Referred To Contact Jorge Maria MD [address] [place] [id number] Referral ID Status Reason Start Date Expiration Date Visits Re quested Visits Authorized [id number] Closed 1 1 Referral ID Status Reason Start Date Expiration Date Visits Re quested Visits Authorized [id number] Closed 1 1 Chief Complaint and Reason for Visit Chief Complaint Admit Date DIABETIC FOOT WOUND June 22, 2025 1:0 5pm DIABETIC FOOT WOUND June 22, 2025 1:4 0pm Reason for Visit Admit Date Diabetic foot ulcer June 22, 2025 1:0 5pm Additional Source Comments (unrecognized sect ion and content) No Status Records FoundNo Status Records Found INFORMATION SOURCE (unrecogn ized section and content) DATE CREATED AUTHOR [facility] DATE CREATED AUTHOR AUTHOR'S ROQUE ATKAVIN 04/04/2025 [facility] Source Comments (unrecognize d section and content) In the event this informatio n is protected by the Federal Confidentiality of Alcohol and Drug Abuse Patient Records regulations: The Federal rules restrict any use of the information to criminally investigate or prosecute any alcohol or drug abuse patient.[facility] AdministrationIn the event this information is protected by the Federal Confidentiality of Alcohol and Drug Abuse Patient Records regulations: The Federal rules restrict any use of the information to criminally investigate or prosecute any alcohol or drug abuse patient.[facility] AdministrationIn the event this information is protected by the Federal Confidentiality of Alcohol and Drug Abuse Patient Records regulations: The Federal rules restrict any use of the information to criminally investigate or prosecute any alcohol or drug abuse patient.[facility] AdministrationIn the event this information is protected by the Federal Confidentiality of Alcohol and Drug Abuse Patient Records regulations: The Federal rules restrict any use of the information to criminally investigate or prosecute any alcohol or drug abuse patient.[facility] AdministrationIn the event this information is protected by the Federal Confidentiality of Alcohol and Drug Abuse Patient Records regulations: The Federal rules restrict any use of the information to criminally investigate or prosecute any alcohol or drug abuse patient.[facility] AdministrationIn the event this information is protected by the Federal Confidentiality of Alcohol and Drug Abuse Patient Records regulations: The Federal rules restrict any use of the information to criminally investigate or prosecute any alcohol or drug abuse patient.[facility] AdministrationIn the event this information is protected by the Federal Confidentiality of Alcohol and Drug Abuse Patient Records regulations: The Federal rules restrict any use of the information to criminally investigate or prosecute any alcohol or drug abuse patient.[facility] AdministrationIn the event this information is protected by the Federal Confidentiality of Alcohol and Drug Abuse Patient Records regulations: The Federal rules restrict any use of the information to criminally investigate or prosecute any alcohol or drug abuse patient.[facility] AdministrationIn the event this information is protected by the Federal Confidentiality of Alcohol and Drug Abuse Patient Records regulations: The Federal rules restrict any use of the information to criminally investigate or prosecute any alcohol or drug abuse patient.[facility] AdministrationIn the event this information is protected by the Federal Confidentiality of Alcohol and Drug Abuse Patient Records regulations: The Federal rules restrict any use of the information to criminally investigate or prosecute any alcohol or drug abuse patient.[facility] AdministrationIn the event this information is protected by the Federal Confidentiality of Alcohol and Drug Abuse Patient Records regulations: The Federal rules restrict any use of the information to criminally investigate or prosecute any alcohol or drug abuse patient.[facility] AdministrationIn the event this information is protected by the Federal Confidentiality of Alcohol and Drug Abuse Patient Records regulations: The Federal rules restrict any use of the information to criminally investigate or prosecute any alcohol or drug abuse patient.[facility] AdministrationIn the event this information is protected by the Federal Confidentiality of Alcohol and Drug Abuse Patient Records regulations: The Federal rules restrict any use of the information to criminally investigate or prosecute any alcohol or drug abuse patient.[facility] AdministrationIn the event this information is protected by the Federal Confidentiality of Alcohol and Drug Abuse Patient Records regulations: The Federal rules restrict any use of the information to criminally investigate or prosecute any alcohol or drug abuse patient.[facility] AdministrationIn the event this information is protected by the Federal Confidentiality of Alcohol and Drug Abuse Patient Records regulations: The Federal rules restrict any use of the information to criminally investigate or prosecute any alcohol or drug abuse patient.[facility] AdministrationIn the event this information is protected by the Federal Confidentiality of Alcohol and Drug Abuse Patient Records regulations: The Federal rules restrict any use of the information to criminally investigate or prosecute any alcohol or drug abuse patient.[facility] AdministrationIn the event this information is protected by the Federal Confidentiality of Alcohol and Drug Abuse Patient Records regulations: The Federal rules restrict any use of the information to criminally investigate or prosecute any alcohol or drug abuse patient.[facility] AdministrationIn the event this information is protected by the Federal Confidentiality of Alcohol and Drug Abuse Patient Records regulations: The Federal rules restrict any use of the information to criminally investigate or prosecute any alcohol or drug abuse patient.[facility] AdministrationIn the event this information is protected by the Federal Confidentiality of Alcohol and Drug Abuse Patient Records regulations: The Federal rules restrict any use of the information to criminally investigate or prosecute any alcohol or drug abuse patient.[facility] AdministrationIn the event this information is protected by the Federal Confidentiality of Alcohol and Drug Abuse Patient Records regulations: The Federal rules restrict any use of the information to criminally investigate or prosecute any alcohol or drug abuse patient.[facility] AdministrationIn the event this information is protected by the Federal Confidentiality of Alcohol and Drug Abuse Patient Records regulations: The Federal rules restrict any use of the information to criminally investigate or prosecute any alcohol or drug abuse patient.[facility] AdministrationIn the event this information is protected by the Federal Confidentiality of Alcohol and Drug Abuse Patient Records regulations: The Federal rules restrict any use of the information to criminally investigate or prosecute any alcohol or drug abuse patient.[facility] AdministrationIn the event this information is protected by the Federal Confidentiality of Alcohol and Drug Abuse Patient Records regulations: The Federal rules restrict any use of the information to criminally investigate or prosecute any alcohol or drug abuse patient.[facility] AdministrationIn the event this information is protected by the Federal Confidentiality of Alcohol and Drug Abuse Patient Records regulations: The Federal rules restrict any use of the information to criminally investigate or prosecute any alcohol or drug abuse patient.[facility] AdministrationIn the event this information is protected by the Federal Confidentiality of Alcohol and Drug Abuse Patient Records regulations: The Federal rules restrict any use of the information to criminally investigate or prosecute any alcohol or drug abuse patient.[facility] AdministrationIn the event this information is protected by the Federal Confidentiality of Alcohol and Drug Abuse Patient Records regulations: The Federal rules restrict any use of the information to criminally investigate or prosecute any alcohol or drug abuse patient.[facility] AdministrationIn the event this information is protected by the Federal Confidentiality of Alcohol and Drug Abuse Patient Records regulations: The Federal rules restrict any use of the information to criminally investigate or prosecute any alcohol or drug abuse patient.[facility] AdministrationIn the event this information is protected by the Federal Confidentiality of Alcohol and Drug Abuse Patient Records regulations: The Federal rules restrict any use of the information to criminally investigate or prosecute any alcohol or drug abuse patient.[facility] AdministrationIn the event this information is protected by the Federal Confidentiality of Alcohol and Drug Abuse Patient Records regulations: The Federal rules restrict any use of the information to criminally investigate or prosecute any alcohol or drug abuse patient.[facility] Reason for Visit (unrecogniz ed section and content) Reason Comments Blood Pressure Check Reason Comments Insurance Authorization Trulicity Reason Onset Date Comments Refill Request 08/15/2022 Reason Comments Medication Problem Reason Onset Date Comments Refill Request 12/25/2022 Reason Comments Hypertension Reason Comments Results a1c Reason Comments Follow Up Reason Comments Follow Up Reason Comments Film Cath/Echo Reason Onset Date Comments Refill Request 01/01/2024 Reason Comments Results Reason Comments Refill Request Reason Onset Date Comments Refill Request 02/26/2024 Reason Comments Follow Up Reason Comments Established Patient Nail Fungus Diabetic Foot Care Specialty Diagnoses / Procedures Referred By Nicolasa boston Referred To Contact Podiatry Diagnoses Onychomycosis Procedures CONSULT TO PODIATRY OFFICE/OUTPATIENT NEW HIGH MDM 60 MINUTES Jorge Maria MD [address] [place] [address] Phone: tel: fax: Referral ID Status Reason Start Date Expiration Date V isits Requested Visits Authorized [id number] Closed PCP Requested Referral 12/29/2024 12/29/2025 1 1 Reason Onset Date Comments Refill Request 03/02/2025 Reason Onset Date Comments Refill Request 03/29/2025 Reason Comments Medication Problem Glucose Sensors Reason Onset Date Comments Refill Request 04/19/2025 Reason Comments Ankle Pain Reason Comments Swelling Swelling in foot and ankle, blister on great toe Care Teams (unrecognized sec tion and content) Women'S Activities Adviser Relationship Specialty Start Date End Date Jorge Maria MD [address] [place] [address] PCP - General Family Practice 08/03/17 Women'S Activities Adviser Relationship Specialty Start Date End Date Jorge Maria MD [address] [facility] [place] [address] PCP - General Family Practice 08/03/17 Women'S Activities Adviser Relationship Specialty Start Date End Date Jorge Maria MD [address] [facility] [place] [address] PCP - General Family Medicine 08/03/17 Women'S Activities Adviser Relationship Specialty Start Date End Date Jorge Maria MD [address] [facility] [place] [address] PCP - General Family Medicine 08/03/17 Women'S Activities Adviser Relationship Specialty Start Date End Date Jorge Maria MD [address] [place] [address] PCP - General Family Medicine 08/03/17 Women'S Activities Adviser Relationship Specialty Start Date End Date Jorge Maria MD [address] [facility] [place] [address] PCP - General Family Medicine 08/03/17 Women'S Activities Adviser Relationship Specialty Start Date End Date Jorge Maria MD [address] [facility] [place] [address] PCP - General Family Medicine 08/03/17 Women'S Activities Adviser Relationship Specialty Start Date End Date Jorge Maria MD [address] [place] [address] PCP - General Family Medicine 08/03/17 Women'S Activities Adviser Relationship Specialty Start Date End Date Jorge Maria MD [address] [place] [address] PCP - General Family Medicine 08/03/17 Women'S Activities Adviser Relationship Specialty Start Date End Date Jorge Maria MD [address] [place] [address] PCP - General Family Medicine 08/03/17 Women'S Activities Adviser Relationship Specialty Start Date End Date Jorge Maria MD [address] [place] [address] PCP - General Family Medicine 08/03/17 Women'S Activities Adviser Relationship Specialty Start Date End Date Jorge Maria MD [address] [place] [address] PCP - General Family Medicine 08/03/17 Women'S Activities Adviser Relationship Specialty Start Date End Date Jorge Maria MD [address] [place] [address] PCP - General Family Medicine 08/03/17 Women'S Activities Adviser Relationship Specialty Start Date End Date Jorge Maria MD [address] [place] [address] PCP - General Family Medicine 08/03/17 Women'S Activities Adviser Relationship Specialty Start Date End Date Jorge Maria MD [address] [place] [address] PCP - General Family Medicine 08/03/17 Women'S Activities Adviser Relationship Specialty Start Date End Date Jorge Maria MD [address] [place] [address] PCP - General Family Medicine 08/03/17 Nichole Mccullough APRN.WATER RESOURCE ENGINEERING SPECIALIST [address] [place] [address] Prorate Clerk Family Medicine 10/26/24 Esthela Davila APRN.WATER RESOURCE ENGINEERING SPECIALIST [address] [place] [address] Prorate Clerk Family Medicine 10/26/24 Women'S Activities Adviser Relationship Specialty Start Date End Date Jorge Maria MD [address] [place] [address] PCP - General Family Medicine 08/03/17 Nichole Mccullough TEST EXAMINER.WATER RESOURCE ENGINEERING SPECIALIST [address] [place] [address] Prorate Clerk Family Medicine 10/26/24 Esthela Davila TEST EXAMINER.WATER RESOURCE ENGINEERING SPECIALIST [address] [place] [address] [facility] 10/26/24 Women'S Activities Adviser Relationship Specialty Start Date End Date Jorge Maria MD [address] [place] [address] PCP - General Family Medicine 08/03/17 Nichole Mccullough TEST EXAMINER.WATER RESOURCE ENGINEERING SPECIALIST [address] [place] [address] [facility] 10/26/24 Esthela Davila APRN.WATER RESOURCE ENGINEERING SPECIALIST [address] [place] [address] [facility] 10/26/24 Women'S Activities Adviser Relationship Specialty Start Date End Date Jorge Maria MD [address] [place] [address] PCP - General Family Medicine 08/03/17 Nichole Mccullough APRN.WATER RESOURCE ENGINEERING SPECIALIST [address] [place] [address] [facility] 10/26/24 Esthela Davila TEST EXAMINER.WATER RESOURCE ENGINEERING SPECIALIST [address] [place] [address] [facility] 10/26/24 Women'S Activities Adviser Relationship Specialty Start Date End Date Jorge Maria MD [address] [place] [address] PCP - General Family Medicine 08/03/17 Nichole Mccullough TEST EXAMINER.WATER RESOURCE ENGINEERING SPECIALIST [address] [place] [address] [facility] 10/26/24 Esthela Davila TEST EXAMINER.WATER RESOURCE ENGINEERING SPECIALIST [address] [place] [address] [facility] 10/26/24 Women'S Activities Adviser Relationship Specialty Start Date End Date Jorge Maria MD [address] [place] [address] PCP - General Family Medicine 08/03/17 Nichole Mccullough, TEST EXAMINER.WATER RESOURCE ENGINEERING SPECIALIST [address] [facility] [place] [address] Prorate Clerk Family [facility] 10/26/24 Esthela Davila APRN.WATER RESOURCE ENGINEERING SPECIALIST [address] [place] [address] Prorate Clerk [facility] 10/26/24 Women'S Activities Adviser Relationship Specialty Start Date End Date Jorge Maria MD [address] [place] [address] PCP - General Family Medicine 08/03/17 Nichole Mccullough, JEFF.WATER RESOURCE ENGINEERING SPECIALIST [address] [facility] [place] [address] Prorate Clerk [facility] 10/26/24 Esthela Davila TEST EXAMINER.WATER RESOURCE ENGINEERING SPECIALIST [address] [place] [address] [facility] 10/26/24 Women'S Activities Adviser Relationship Specialty Start Date End Date Jorge Maria MD [address] [place] [address] PCP - General Family Medicine 08/03/17 Nichole Mccullough, TEST EXAMINER.WATER RESOURCE ENGINEERING SPECIALIST [address] [facility] [place] [address] [facility] 10/26/24 Esthela Davila APRN.WATER RESOURCE ENGINEERING SPECIALIST [address] [place] [address] [facility] 10/26/24 Team Status: Active Member Role/Relationship Status Dates Dr. Jorge Maria MD Primary Care Provider Active Team Status: Active Member Role/Relationship Status Dates Dr. Tommy Damon DO Emergency Provider Active Start: June 22, 2025 Dr. Jorge Maria MD Primary Care Provider Active Start: June 22, 2025 Dr. Tommy Worthy DO Admit Provider Active Star t: June 22, 2025 Dr. Tommy Worthy DO Attending Provider Active Start: June 22, 2025 Team Status: Active Member Role/Relationship Status Dates Dr. Tommy Damon DO Emergency Provider Active Start: June 22, 2025 Dr. Jorge Maria MD Primary Care Provider Active Start: June 22, 2025 Dr. Tommy Worthy DO Admit Provider Active Star t: June 22, 2025 Dr. Tommy Worthy DO Attending Provider Active Start: June 22, 2025 Dr. Tommy Worthy DO Other Provider Active Star t: June 22, 2025 Women'S Activities Adviser Relationship Specialty Start Date End Date Jorge Maria MD [address] [place], [place] [id number] PCP - General Family Medicine 08/03/17 Nichole Mccullough, TEST EXAMINER.WATER RESOURCE ENGINEERING SPECIALIST [address] [place], [place] [id number] [facility] 10/26/24 Esthela Davila, TEST EXAMINER.WATER RESOURCE ENGINEERING SPECIALIST [address] [place], [place] [id number] [facility] 10/26/24 Goals (unrecognized section and content) Goals may be documented in a n alternate section FOR RECORDS PERTAINING TO PATIENTS WHO ARE OR HAVE BEEN ENROLLED IN A CHEMICAL DEPENDENCY/SUBSTANCEABUSE PROGRAM, SOME INFORMATION MAY BE OMITTED. This clinical summary was aggregated from multiple sources. Caution should be exercised in using it in the provision of clinical care. This summary normalizes information from multiple sources, and as a consequence, information in this document may materially change the coding, format and clinical context of patient data. In addition, data may be omitted in some cases. CLINICAL DECISIONS SHOULD BE BASED ON THE PRIMARY CLINICAL RECORDS. [facility] [employer] [facility]. provides no warranty or guarantee of the accuracy or completeness of information in this document.
[2025-06-23 01:09] VITALS: BP 130/84; PULSE 98; RESP 16; TEMP 38.4; O2SAT 97
[2025-06-23] MEDS: Vancomycin HCl 2,000 MG in 0.9% Normal Saline (500mL Bag) 500 ML 250 MG IV ×2 (01:09→13:25)
[2025-06-23 03:53] VITALS: TEMP 37.1
[2025-06-23] MEDS: Meropenem 1 GM in 0.9% Normal Saline (100mL MB+) 100 ML IV (05:28)
--- NOTE | 2025-06-23 07:05 | CON.PCM_ITS ---
Assessment & Plan Assessment/Plan (1) Diabetic foot ulcer: (2) Abscess of toe of left foot: PLAN: Selective debridement was performed of the overlying necrotic tissue to reveal healthy wound bed with the exception of the central aspect. This will allow the area to drain. The area was then dressed with Betadine and dry dressing with Jennifer Moya RN. Radiographs were reviewed and do not appear to show destruction of the cortex of the distal phalanx. MRI is suspicious for osteomyelitis of the distal phalanx of the left hallux. At this point, given that there is no cortical disruption, this should be able to be treated medically and this was discussed with the patient. There is a possibility need for surgery in the future or even loss of toe but the erythema and edema should resolve much quicker since it has drained. Cultures were taken. The patient was educated upon discharge he should follow-up with his senior electrical designer at the [facility], Dr. Fields. (3) Hammertoe: (4) Onychomycosis: PLAN: This onychomycosis is managed with routine care performed approximately every 6 months by his senior electrical designer. PLAN: Plan Findings were discussed with the patient. Podiatry will follow as needed. Continue with medical management and await culture results for antibiotic treatment. Patient understands he may need to go on antibiotic medication for several weeks upon discharge. The patient was educated that at the first sign of any blister or wound, he should call his physician immediately. Patient was seasonally on his house boat. HPI Consult Data Date of Consult: 06/23/25 HPI Narrative Reason for Consultation: diabetic foot wound left hallux HPI Narrative: RUBEN FABIAN, is a 64 M who presents [facility] Medical History (Updated 06/23/25 @ 07:[address] Elise Smith, IVIS) Anxiety Irregular heart beat Neuropathy Hypertension Diabetes Home Medications ?Medication ?Instructions ?Recorded ?Last Taken ?Type metformin 500 mg tablet 500 mg PO BID blood sugar #6 0 tabs 07/01/17 06/21/25 Rx amlodipine 5 mg tablet 5 mg PO DAILY blood pressure 06/22/25 06/21/25 History atorvastatin 40 mg tablet 40 mg PO DAILY cholesterol 0 06/22/25 06/21/25 History dulaglutide 3 mg/0.5 mL 3 mg subcut QWEEK blood suga r 06/22/25 06/20/25 History subcutaneous pen injector (Trulicity) glimepiride 4 mg tablet 4 mg PO DAILY diabetes 06/2206/21/25 History hydrochlorothiazide 25 mg tablet 25 mg PO DAILY blood pressure 06/22/25 06/21/25 History lisinopril 20 mg tablet 40 mg PO DAILY blood pressur e 06/22/25 06/21/25 History metoprolol succinate 100 mg 100 mg PO DAILY blood pres sure 06/22/25 06/21/25 History tablet,extended release 24 hr Allergy/AdvReac Type Severity Reaction Status Date / Time Penicillins (PCN) Allergy Rash Verified 06/22/25 10:21 Family History (Updated 06/22/25 @ 13:[address] Tommy Worthy DO) Other Diabetes Surgical History no surgical history Social History Smoking Status: Never smoker Physical Exam Const alert, oriented x3 and no apparent distress Extremity normal capillary refill and no pedal edema Peripheral Pulses: Yes posterior tibial pulses present and dorsalis pedis pulses present Right Lower Extremity: foot and digits Positive for neurovascular exam (neuropathy is present to toes) and other (Toenails are noted 1 through 5 to the right foot and are mildly reducible.) Left Lower Extremity: foot and digits Positive for other (neuropathy is present to toes and patient felt no pain during treatment except a small amount during squeezing to expel fluid. Contracted toes are present.) Skin Wounds: wounds noted Wound Narrative: The distal peripheral aspect of the left hallux has superficial wound with a firmly adherent thin necrotic scab. With, the scab was removed. It was controlled with compression. Most of the days yellow fibrous. That central aspect was then selectively debrided. It does probe up to the distal phalanx. But it was not visible. With squeezing, there was a moderate amount of thick blood-tinged brownish purulence expelled with moderate amount of blood. Cultures were taken. Wound measures 2.0 x 1.5 x 0.1 cm. Probing from central aspect of the wound is approximately 0.8 cm. Nails: discolored, dystrophic and yellow and thickened Lab / Micro Data 06/22/25 11:36 06/22/25 11:36 Labs: Laboratory Results - last 24 hr 06/22/25 11:36: WBC 12.6 H, RBC 4.25 L, Hgb 12.7 L, Hct 38.5 L, MCV 90.6, MCH 29.9, MCHC 33.0, RDW Std Deviation 42.3, RDW Coeff of Domenica 12.7, Plt Count 290, MPV 10.2, Immature Gran % (Auto) 0.500, Neut % (Auto) 80.5 H, Lymph % (Auto) 12.0 L, [place] % (Auto) 6.7, Eos % (Auto) 0.0, Baso % (Auto) 0.3, Absolute Neuts (auto) 10.1 H, Absolute Lymphs (auto) 1.51, Nucleated RBC % 0, ESR 39 H, PT 15.2 H, INR 1.2, APTT 31.0, Sodium 131 L, Potassium 4.3, Chloride 93 L, Carbon Dioxide 23.4, Anion Gap 14, BUN 33 H, Creatinine 1.06, Estim Creat Clear Calc 98.58, Est GFR (MDRD) Non-Af 79, BUN/Creatinine Ratio 31.5 H, Glucose 297 H, L actic Acid 2.5 H*, Calcium 9.3, C-React Prot Ext Range 110.00 H 06/22/25 17:29: POC Glucose 253 H 06/22/25 21:20: POC Glucose 244 H 06/23/25 06:16: POC Glucose 225 H Imaging Radiology Impression Foot X-Ray 06/22/25 11:06 IMPRESSION: No radiopaque foreign body is seen. Moderate arterial calcification is seen. On the lateral view, normal contour of the Achilles tendon is seen. A moderate inferior calcaneal spur is noted. [id number] degenerative changes of the visualized ankle joint noted. Mild degenerative changes are seen throughout the midfoot, as well as the 1st and especially 2nd tarsal-metatarsal joints. On the oblique view, there is a suggestion of fusion of the 3rd cuneiform with the 3rd metatarsal bone. Forefoot varus is seen. Omdp-ho-jhusadyv degenerative changes are seen of the left 1st metatarsophalangeal joint, without significant hallux valgus deformity. No osseous destructive changes noted. No fracture or dislocation is seen. If clinical concern persists, short-term follow-up imaging may be obtained to rule out a currently occult fracture. Reading Location: [facility]1 Lower Extremity MRI 06/22/25 14:17 IMPRESSION: Soft tissue ulcer overlying the distal aspect of the distal phalanx of the big toe. Prominent underlying enhancing soft tissue edema and swelling suggestive of cellulitis. Underlying enhancing bone marrow edema of the tip of the distal phalanx of the big toe, probably osteomyelitis. No drainable abscess formation. Diffuse edema of the metatarsal muscles, probably infectious myositis without drainable intramuscular abscess formation. Reading [facility]
[2025-06-23 08:03] LABS: Hematocrit 37.1 % (40-54); Hemoglobin 12.6 g/dL (13.0-16.5); Immature Granulocytes Count 0.060 X10^3/uL (0.0-0.0); Mean Corp Hgb Conc 34.0 g/dL (32-36); Mean Corpuscular Volume 89.0 fL (80-94); Mean Platelet Vol. 10.0 fl (6.2-12.0); NRBC Flagged by Analyzer 0 % (0-5); Platelet Count 265 K/mm3 (150-450); RBC Distribution Width CV 12.5 % (11.6-14.6); RBC Distribution Width SD 41.1 fl (35.1-43.9); Red Blood Count 4.17 M/mm3 (4.6-6.2); White Blood Count 11.7 K/mm3 (4.4-11.0)
[2025-06-23 08:29] LABS: Anion Gap 14 (5-15); BUN 21 mg/dL (4-19); BUN/Creat Ratio 27.0 RATIO (10-20); Calcium,Total 8.6 mg/dL (7.6-11.0); Carbon Dioxide 21.4 mmol/L (21.0-32.0); Chloride 99 mmol/L (98-108); Estimated Creatinine Clearance 133.35 ml/min (50-250); Glucose 255 mg/dL (70-99); Potassium 3.9 mmol/L (3.3-5.1)
[2025-06-23 08:55] VITALS: BP 122/80; PULSE 102; RESP 15; TEMP 37.6; O2SAT 96
[2025-06-23 08:58] VITALS: PULSE 102
[2025-06-23] MEDS: Metoprolol(XL)Succ 100 MG Tablet PO (08:58)
[2025-06-23 09:02] LABS: Staph aureus DNA By PCR POSITIVE (Negative)
[2025-06-23] MEDS: 0.9% Normal Saline (250mL Bag) 250 ML 15 ML IV (09:04)
--- NOTE | 2025-06-23 09:46 | CASEMGMT ---
CORKY MEDINA Assessment Face to Face with patient for initial transition planning/care coordination assessment. CORKY MEDINA introduced self and role at [facility], pt voices understanding. Pt is A&Ox4 and is resting comfortably in bed and is calm. Care providers, pharmacy, and demographics verified. Admitting dx: Diabetic Foot Wound LACE Strata: 1 PCP: Jorge Maria Specialists: Donnie (Podiatry) Preferred Pharmacy: [facility] Insurance: [employer] Prescription Benefit: Yes LNOK: Mary Simms (SO) Living Arrangements: Pt lives with his SO and 15 y/o son in a 2 story home with 2 steps to enter ADLs/IADLs: Indep. 6-Click score is 24 Transportation: Self, SO DME: Continuous BGM with sufficient supplies including sensors. Pt states that he does not like poking himself and refuses the need for a regular glucometer as a backup. Pt states that he only takes PO medications to manage his DM through his PCP. Pt denies further DME uses or needs at this time HHC/SNF: Denies hx of Pt?s goal: Home Plan: TBD. Anticipate home no additional needs vs home with IV ATB needs. ID and Podiatry are consulted. See MRI results. Pt educated on the home IV ATB process and what it entails. Educated the pt that if the pt does need IV ATBs, the frequency will determine future needs. Educated the pt that the OP Infusion center is an option if IV ATBs are only needed once per day. Pt prefers this option. Pt educated that if IV ATBs are required more than once a day, HH can get established for initial IV administration, dressing changes, education, lab draws, and more. Pt states that he and his SO can be the teachable caregivers and that they are comfortable with wound care as well. At this time, awaiting final ID recommendations to help solidify DC plans. Pt denies further questions or concerns at this time. CM to follow. Pat Olson RN, CM
--- NOTE | 2025-06-23 13:36 | PCM.CONS.GEN ---
Assessment & Plan Assessment/Plan (1) Osteomyelitis: PLAN: Suspected osteo on MRI of L 1st toe. Podiatry following, wound cx pending. Was associated with freshwater murray. No issues with amox in past, reports rash with PCN. Will narrow to vanc/zosyn. Will follow, thank you HPI Consult Data Date of Consult: 06/23/25 HPI Narrative Reason for Consultation: osteo HPI Narrative: RUBEN FABIAN, is a 64 M with DM neuropathy, reports 4 weeks progressive L 1st toe pain, swelling, redness, wound. Sx started while at beach at [facility]. Developed blister, bleeding, then progressive inflammation. Some fever and chills. No recent abx. Admitted here from ED on 06/22. Full ROS Performed and neg except as noted above. [facility] Medical History Anxiety Irregular heart beat Neuropathy Hypertension Diabetes Home Medications ?Medication ?Instructions ?Recorded ?Last Taken ?Type metformin 500 mg tablet 500 mg PO BID blood sugar #60 tabs 07/01/17 06/21/25 Rx amlodipine 5 mg tablet 5 mg PO DAILY blood pressure 06/22/25 06/21/25 History atorvastatin 40 mg tablet 40 mg PO DAILY cholesterol 06/22/25 06/21/25 History dulaglutide 3 mg/0.5 mL 3 mg subcut QWEEK blood sugar 06/22/25 06/20/25 History subcutaneous pen injector (Trulicity) glimepiride 4 mg tablet 4 mg PO DAILY diabetes 06/22/25 06/21/25 History hydrochlorothiazide 25 mg tablet 25 mg PO DAILY blood pressure 06/22/25 06/21/25 History lisinopril 20 mg tablet 40 mg PO DAILY blood pressure 06/22/25 06/21/25 History metoprolol succinate 100 mg 100 mg PO DAILY blood pressure 06/22/25 06/21/25 History tablet,extended release 24 hr Allergy/AdvReac Type Severity Reaction Status Date / Time Penicillins (PCN) Allergy Rash Verified 06/22/25 10:21 Family History (Updated 06/22/25 @ 13:[address] Tommy Worthy DO) Other Diabetes Surgical History no surgical history Social History Smoking Status: Never smoker Physical Exam Const alert, oriented x3 and no apparent distress General Appearance: cooperative HEENT normocephalic and head/scalp atraumatic Eyes PERRL and EOMs intact bilaterally Neck supple and No nodes Resp normal air movement and clear to auscultation bilaterally Cardio regular rate and regular rhythm GI soft to palpation, non-tender and non-distended Extremity General Extremity: Negative for edema Skin Skin Narrative: L 1st toe infected wound Neuro CN's II-XII intact bilaterally Lab / Micro Data Attestation: I reviewed the patient's lab results. 06/23/25 07:41 06/23/25 07:41 Labs: Laboratory Results - last 24 hr 06/22/25 11:36: ESR 39 H, C-React Prot Ext Range 110.00 H 06/22/25 17:29: POC Glucose 253 H 06/22/25 21:20: POC Glucose 244 H 06/23/25 06:16: POC Glucose 225 H 06/23/25 07:00: S.aureus Protein A PCR POSITIVE H, MRSA (PCR) Negative 06/23/25 07:41: WBC 11.7 H, RBC 4.17 L, Hgb 12.6 L, Hct 37.1 L, MCV 89.0, MCH 30.2, MCHC 34.0, RDW Std Deviation 41.1, RDW Coeff of Domenica 12.5, Plt Count 265, MPV 10.0, Immature Gran % (Auto) 0.500, Neut % (Auto) 67.8, Lymph % (Auto) 19.0, [place] % (Auto) 12.2 H, Eos % (Auto) 0.2, Baso % (Auto) 0.3, Absolute Neuts (auto) 7.9 H, Absolute Lymphs (auto) 2.22, Nucleated RBC % 0, Sodium 133, Potassium 3.9, Chloride 99, Carbon Dioxide 21.4, Anion Gap 14, BUN 21 H, Creatinine 0.78, Estim Creat Clear Calc 133.35, Est GFR (MDRD) Non-Af 101, BUN/Creatinine Ratio 27.0 H, Glucose 255 H, Hemoglobin A1c 11.8 H, Lactic Acid 1.2, Calcium 8.6 06/23/25 11:42: POC Glucose 289 H Micro: Microbiology 06/22/25 15:15 Wound - Toe Wound Culture - Preliminary Mixed Gram Positive Organisms 06/22/25 11:36 Blood Culture (Wb) - Ankle Blood Culture - Preliminary Imaging Radiology Impression Lower Extremity MRI 06/22/25 14:17 IMPRESSION: Soft tissue ulcer overlying the distal aspect of the distal phalanx of the big toe. Prominent underlying enhancing soft tissue edema and swelling suggestive of cellulitis. Underlying enhancing bone marrow edema of the tip of the distal phalanx of the big toe, probably osteomyelitis. No drainable abscess formation. Diffuse edema of the metatarsal muscles, probably infectious myositis without drainable intramuscular abscess formation. Reading [facility]
[2025-06-23 14:00] VITALS: BP 101/53; PULSE 85; RESP 14; TEMP 37.6; O2SAT 96
[2025-06-23] MEDS: Piperacil/Tazobactam 3.375 GM in 0.9% Normal Saline (50mL MB+) 50 ML IV ×2 (16:16→21:13)
--- NOTE | 2025-06-23 17:20 | PCM.PN.HOSP ---
Reason for Visit Chief Complaint: Foot wound Subjective Subjective Patient was seen and examined today, I talked to podiatry who saw the patient today, he is left great toe wound was debrided at the bedside, she does not feel that there is a need for any more debridement. I ask infectious diseases to see the patient, cultures were obtained today and we are waiting culture results. PCR was positive for staph but not MRSA Objective Data Objective Data Vital Signs: Vital Signs Temp Pulse Resp BP Pulse Ox O2 Del Method 99.7 F H 85 14 101/53 L 96 Room Air 06/23/25 14:00 06/23/25 14:00 06/23/25 14:00 06/23/25 14:00 06/23/25 14:00 06/23/25 14:00 Oxygen Delivery Method Room Air Weight: 123.6 kg Body Mass Index (BMI) 36.9 Intake & Output: Intake and Output for Last 24 Hours 06/21/25 06/22/25 06/23/25 23:59 23:59 23:59 Intake Total 1640 / 1640 1280 / 1280 Balance 1640 / 1640 1280 / 1280 Lab / Micro Data 06/23/25 07:41 06/23/25 07:41 Labs: Laboratory Results - last 24 hr 06/22/25 11:36: ESR 39 H 06/22/25 17:29: POC Glucose 253 H 06/22/25 21:20: POC Glucose 244 H 06/23/25 06:16: POC Glucose 225 H 06/23/25 07:00: S.aureus Protein A PCR POSITIVE H, MRSA (PCR) Negative 06/23/25 07:41: WBC 11.7 H, RBC 4.17 L, Hgb 12.6 L, Hct 37.1 L, MCV 89.0, MCH 30.2, MCHC 34.0, RDW Std Deviation 41.1, RDW Coeff of Domenica 12.5, Plt Count 265, MPV 10.0, Immature Gran % (Auto) 0.500, Neut % (Auto) 67.8, Lymph % (Auto) 19.0, Cobb % (Auto) 12.2 H, Eos % (Auto) 0.2, Baso % (Auto) 0.3, Absolute Neuts (auto) 7.9 H, Absolute Lymphs (auto) 2.22, Nucleated RBC % 0, Sodium 133, Potassium 3.9, Chloride 99, Carbon Dioxide 21.4, Anion Gap 14, BUN 21 H, Creatinine 0.78, Estim Creat Clear Calc 133.35, Est GFR (MDRD) Non-Af 101, BUN/Creatinine Ratio 27.0 H, Glucose 255 H, Hemoglobin A1c 11.8 H, Lactic Acid 1.2, Calcium 8.6 06/23/25 11:42: POC Glucose 289 H 06/23/25 16:24: POC Glucose 193 H Micro: Microbiology 06/23/25 07:00 Wound Drainage - Aerobic & Anaerobic Swabs Gram Stain - Final 06/22/25 15:15 Wound - Toe Gram Stain - Final 06/22/25 15:15 Wound - Toe Wound Culture - Preliminary Mixed Gram Positive Organisms 06/22/25 11:36 Blood Culture (Wb) - Ankle Blood Culture - Preliminary Radiography Diagnostic Testing: Radiology Impression Lower Extremity MRI 06/22/25 14:17 IMPRESSION: Soft tissue ulcer overlying the distal aspect of the distal phalanx of the big toe. Prominent underlying enhancing soft tissue edema and swelling suggestive of cellulitis. Underlying enhancing bone marrow edema of the tip of the distal phalanx of the big toe, probably osteomyelitis. No drainable abscess formation. Diffuse edema of the metatarsal muscles, probably infectious myositis without drainable intramuscular abscess formation. Reading Location: [place] [id number] Physical Exam Const alert, oriented x3, no apparent distress and healthy appearing General Appearance: cooperative, well kempt and well developed Orientation / Consciousness: awake, oriented to person, oriented to place and oriented to time HEENT normocephalic, head/scalp atraumatic and moist oral mucous membranes Eyes PERRL, EOMs intact bilaterally and conjunctivae normal Neck supple, no JVD, thyroid normal and no carotid bruits General: trachea midline Resp normal respiratory effort, no retractions, no use of accessory muscles and clear to auscultation bilaterally Auscultation: Negative for rales, rhonchi or wheezes Cardio regular rate, regular rhythm, S1 normal heart sound, S2 normal heart sound, no murmurs, no rub and no gallops GI normal to inspection, nondistended, normoactive bowel sounds, soft to palpation, non-tender and non-distended Extremity Extremity Narrative: The left foot has a bandage covering it, this bandage was not removed for inspection Neuro oriented x3, CN's II-XII intact bilaterally, no focal motor deficits and no sensory deficits noted Sensorium / Orientation: awake and alert Speech: speech normal Psych affect normal Assessment & Plan Assessment/Plan (1) Abscess of toe of left foot: PLAN: Plan 1. Neuropathic infection of the left great toe without osteomyelitis-patient will continue antibiotic coverage per infectious diseases, he will follow-up with podiatry #2 type 2 diabetes under poor control-patient is on fingerstick blood sugars with coverage with sliding scale insulin. Patient may need additional adjustments on his home medications for his type 2 diabetes. #3 essential hypertension-patient will remain on his home medications #4 hyperlipidemia-patient is on a statin Total clinical time spent by myself addressing the patient's medical issues, reviewing all of her data, and collaborating with patient's care team: 35 minutes Charges/Coding Visit Charges Inpatient E&M: 40730 Subs Hosp L2
[2025-06-23 21:21] VITALS: BP 127/78; PULSE 79; RESP 16; TEMP 36.8; O2SAT 98
[2025-06-24 00:22] LABS: Vancomycin, Trough Level 19.4 ug/mL (5.0-15.0)
--- NOTE | 2025-06-24 01:30 | PCM.RX.CS ---
Consult Antibiotic Management Pharmacy has been consulted to manage selected antibiotic: Vancomycin Type of Intervention Type of Consult: Follow-up Labs Labs: Sodium 133 mmol/L (133-145) 06/23/25 07:41 Potassium 3.9 mmol/L (3.3-5.1) 06/23/25 07:41 Chloride 99 mmol/L (98-108) 06/23/25 07:41 Carbon Dioxide 21.4 mmol/L (21.0-32.0) 06/23/25 07:41 Anion Gap 14 (5-15) 06/23/25 07:41 BUN 21 mg/dL (4-19) H 06/23/25 07:41 Creatinine 0.78 mg/dL (0.70-1.20) 06/23/25 07:41 Est GFR (MDRD) Non-Af 101 (>60) 06/23/25 07:41 BUN/Creatinine Ratio 27.0 RATIO (10-20) H 06/23/25 07:41 Glucose 255 mg/dL (70-99) H 06/23/25 07:41 Vancomycin Trough 19.4 ug/mL (5.0-15.0) H 06/23/25 23:43 Microbiology Microbiology: Microbiology 06/22/25 11:36 Blood Culture (Wb) - Ankle Bacteria Detection (PCR) - Preliminary Staphylococcus aureus 06/22/25 11:36 Blood Culture (Wb) - Ankle Blood Culture - Preliminary 06/23/25 07:00 Wound Drainage - Aerobic & Anaerobic Swabs Gram Stain - Final 06/22/25 15:15 Wound - Toe Gram Stain - Final 06/22/25 15:15 Wound - Toe Wound Culture - Preliminary Mixed Gram Positive Organisms Goal Trough Goal Trough: 15-20 mcg/mL Pharmacy Plan for Drug Dosing Pharmacy Plan for Drug Dosing: Pharmacy Service will continue to monitor and adjust dosing as required. TROUGH 19.4 @ 10.5 HOURS. NO CHANGES, FOLLOW UP TROUGH IN 2 DAYS Follow-Up Labs Follow-Up Labs: Trough: Vancomycin Date/Time Labs Ordered Labs to be done on [date and time ordered]: 06/25 @ 0501
[2025-06-24] MEDS: Vancomycin HCl 2,000 MG in 0.9% Normal Saline (500mL Bag) 500 ML 250 MG IV ×2 (01:54→11:32)
[2025-06-24 05:26] VITALS: BP 138/78; PULSE 77; RESP 16; TEMP 37.1; O2SAT 99
[2025-06-24] MEDS: Piperacil/Tazobactam 3.375 GM in 0.9% Normal Saline (50mL MB+) 50 ML IV ×3 (06:43→21:36)
[2025-06-24] MEDS: 0.9% Saline Lock 10 ML Syringe IV (06:43)
--- NOTE | 2025-06-24 06:54 | WOUNDNOTE ---
wound photo: left great toe
--- NOTE | 2025-06-24 06:55 | WOUNDNOTE ---
wound photo: left great toe
[2025-06-24 09:23] VITALS: BP 113/71; PULSE 84; RESP 17; TEMP 36.9; O2SAT 96
[2025-06-24 09:29] VITALS: PULSE 84
[2025-06-24] MEDS: Metoprolol(XL)Succ 100 MG Tablet PO (09:29)
--- NOTE | 2025-06-24 09:47 | ECHOCS_ITS ---
Reason For Study Reason For Study: MURMUR Procedure This was a 2D Doppler, Color Flow transthoracic echocardiogram. Exam performed in department. Left Ventricle Normal LV size. Left ventricular systolic function is normal. The left ventricular ejection fraction is 65 %. No regional wall motion abnormalities noted. Right Ventricle Normal RV size. Normal systolic function. Atria Normal left atrium. Normal right atrium. Mitral Valve Normal mitral valve. Tricuspid Valve Normal tricuspid valve. Aortic Valve Trisinus/trileaflet aortic valve. Mild focal aortic valve calcification. Pulmonic Valve Normal pulmonic valve. Great Vessels Normal aortic root. The pulmonary artery is normal size. Inferior vena cava collapse with sniff. Pericardium/Pleural No pericardial effusion. MMode/2D Measurements & Calculations RVDd: 3.6 cm Ao root diam: 3.6 cm LAV(MOD-sp4): 39.6 ml LVAd ap4: 45.2 cm2 SV(MOD-sp4): 109.6 ml SV(sp4-el): 110.7 ml LVLd ap4: 9.5 cm SI(MOD-sp4): 45.1 ml/m2 EDV(MOD-sp4): 177.4 ml EDV(sp4-el): 182.8 ml LVAs ap4: 25.5 cm2 LVLs ap4: 7.7 cm ESV(MOD-sp4): 67.8 ml ESV(sp4-el): 72.1 ml EF(MOD-sp4): 61.8 % EF(sp4-el): 60.6 % LA A4 area: 16.9 cm2 LA dimension(2D): 4.4 cm RA A4 area: 14.2 cm2 Time Measurements MV dec time: 0.15 sec Doppler Measurements & Calculations MV E max attila: 80.5 cm/sec Lat Peak E' Attila: 11.0 cm/sec Med Peak E' Attila: 9.5 cm/sec MV A max attila: 105.9 cm/sec E/E' lat: 7.3 E/E' med: 8.5 MV E/A: 0.76 MV V2 max: 113.1 cm/sec Ao V2 max: 284.9 cm/sec MV max P.1 mmHg MV dec slope: 520.3 cm/sec2 Ao max P.6 mmHg MV V2 mean: 81.8 cm/sec Ao V2 mean: 204.5 cm/sec MV mean P.9 mmHg Ao mean P.1 mmHg MV V2 VTI: 31.9 cm Ao V2 VTI: 53.5 cm PA V2 max: 136.9 cm/sec PA V2 mean: 100.2 cm/sec ECHO/Echo Complete W/ Contrast Interpretation Summary Normal LV size. Left ventricular systolic function is normal. The left ventricular ejection fraction is 65 %. Mild focal aortic valve calcification. Contrast injection was performed. Ordering Physician: Luis Allen Referring Physician: GRAHAM RODRIGUEZ Performed By: Charlotte Riggins RCS
--- NOTE | 2025-06-24 10:55 | PCM.PN.ID ---
Physical Exam Narrative Feeling better, no fever, no new joint/back pain Const alert and no apparent distress General Appearance: cooperative Resp normal air movement and clear to auscultation bilaterally Cardio regular rate and regular rhythm GI soft to palpation, non-tender and non-distended Extremity General Extremity: no tenderness to palpation of joints or extremities Skin Skin Narrative: toe wrapped. Splinter hemorrhages on both thumbs ID ID: Route of nutrition/ use of supplements: [] Nutritional Intake: [] IV Site: [] Calhoun Catheter: [] Assessment & Plan Assessment/Plan (1) Osteomyelitis: PLAN: Suspected osteo on MRI of L 1st toe. Podiatry following, wound cx pending. Was associated with freshwater murray. No issues with amox in past, reports rash with PCN. On vanc/zosyn. Bcx now showing mSSA bacteremia per pcr. Splinter hemorrhages on both thumbs. Will repeat bcx and check TTE. Will follow
--- NOTE | 2025-06-24 13:24 | PCM.PN.HOSP ---
Reason for Visit Chief Complaint: Foot wound Subjective Subjective Patient was seen and examined today, his blood culture was positive for Staph aureus, I briefly talked with infectious diseases, they stated that the patient will probably need a PICC line for outpatient IV antibiotic therapy. Patient is concerned because he is very phobic toward needles, I told him that I would premedicate him if it turns out he needs a PICC line. Also talked with podiatry today, Dr. Champagne stated that he did not feel the patient needed additional surgery on his left hallux. Objective Data Objective Data Vital Signs: Vital Signs Temp Pulse Resp BP Pulse Ox O2 Del Method 98.4 F 84 17 113/71 96 Room Air 06/24/25 09:23 06/24/25 09:29 06/24/25 09:23 06/24/25 09:23 06/24/25 09:23 06/24/25 09:23 Oxygen Delivery Method Room Air Weight: 123.6 kg Body Mass Index (BMI) 36.9 Intake & Output: Intake and Output for Last 24 Hours 06/22/25 06/23/25 06/24/25 23:59 23:59 23:59 Intake Total 1640 / 1640 1512.25 / 1512.25 640 / 640 Balance 1640 / 1640 1512.25 / 1512.25 640 / 640 Lab / Micro Data 06/23/25 07:41 06/23/25 07:41 Labs: Laboratory Results - last 24 hr 06/23/25 16:24: POC Glucose 193 H 06/23/25 21:15: POC Glucose 155 H 06/23/25 23:43: Vancomycin Trough 19.4 H 06/24/25 06:37: POC Glucose 178 H 06/24/25 11:27: POC Glucose 279 H Micro: Microbiology 06/23/25 07:00 Wound Drainage - Aerobic & Anaerobic Swabs Gram Stain - Final 06/23/25 07:00 Wound Drainage - Aerobic & Anaerobic Swabs Wound Culture - Preliminary Staphylococcus aureus 06/22/25 15:15 Wound - Toe Gram Stain - Final 06/22/25 15:15 Wound - Toe Wound Culture - Preliminary Staphylococcus species Staphylococcus species#2 06/22/25 11:50 Blood Culture (Wb) - Anticubital Right Blood Culture - Preliminary No growth in 48 hours. 06/22/25 11:36 Blood Culture (Wb) - Ankle Bacteria Detection (PCR) - Final Staphylococcus aureus 06/22/25 11:36 Blood Culture (Wb) - Ankle Blood Culture - Preliminary Physical Exam Narrative alert, oriented x3, no apparent distress and healthy appearing General Appearance: cooperative, well kempt and well developed Orientation / Consciousness: awake, oriented to person, oriented to place and oriented to time HEENT normocephalic, head/scalp atraumatic and moist oral mucous membranes Eyes PERRL, EOMs intact bilaterally and conjunctivae normal Neck supple, no JVD, thyroid normal and no carotid bruits General: trachea midline Resp normal respiratory effort, no retractions, no use of accessory muscles and clear to auscultation bilaterally Auscultation: Negative for rales, rhonchi or wheezes Cardio regular rate, regular rhythm, S1 normal heart sound, S2 normal heart sound, no murmurs, no rub and no gallops GI normal to inspection, nondistended, normoactive bowel sounds, soft to palpation, non-tender and non-distended Extremity Extremity Narrative: The left foot has a bandage covering it, this bandage was not removed for inspection Neuro oriented x3, CN's II-XII intact bilaterally, no focal motor deficits and no sensory deficits noted Sensorium / Orientation: awake and alert Speech: speech normal Psych affect normal Assessment & Plan Assessment/Plan (1) Abscess of toe of left foot: PLAN: Plan 1. Neuropathic infection of the left great toe without osteomyelitis-patient will continue antibiotic coverage per infectious diseases, he will follow-up with podiatry #2 type 2 diabetes under poor control-patient is on fingerstick blood sugars with coverage with sliding scale insulin. I have increased his Amaryl to 4 mg twice daily and added metformin to his medications. #3 essential hypertension-patient will remain on his home medications #4 hyperlipidemia-patient is on a statin #5 Staph aureus bacteremia-patient underwent an echocardiogram today, again infectious diseases is managing antibiotic coverage Total clinical time spent by myself addressing the patient's medical issues, reviewing all of her data, and collaborating with patient's care team: 35 minutes Charges/Coding Visit Charges Inpatient E&M: 27532 Subs Hosp L2
[2025-06-24 14:43] VITALS: BP 124/77; PULSE 79; RESP 17; TEMP 36.6; O2SAT 98
[2025-06-24 20:30] VITALS: BP 124/81; PULSE 80; RESP 15; TEMP 37.1; O2SAT 95
[2025-06-25] MEDS: Vancomycin HCl 2,000 MG in 0.9% Normal Saline (500mL Bag) 500 ML 250 MG IV ×2 (01:37→12:01)
[2025-06-25 04:44] VITALS: BP 134/85; PULSE 78; RESP 15; TEMP 36.7; O2SAT 98
[2025-06-25] MEDS: Piperacil/Tazobactam 3.375 GM in 0.9% Normal Saline (50mL MB+) 50 ML IV (06:23)
[2025-06-25 09:00] VITALS: BP 141/93; PULSE 75; RESP 16; TEMP 36.9; O2SAT 100
[2025-06-25 09:13] VITALS: BP 141/93; PULSE 75
[2025-06-25] MEDS: Metoprolol(XL)Succ 100 MG Tablet PO (09:13)
--- NOTE | 2025-06-25 09:15 | CASEMGMT ---
Discharge Planning A list of HH providers including quality and resource use data and consistent with the patient's preferred geographic region, medical needs, and insurance network was created in [facility] [facility].? This list was provided to the RN CAROL. Vonda Ortiz, Discharge Planning Asst.
--- NOTE | 2025-06-25 10:15 | PN.ID_ITS ---
Physical Exam Narrative Feeling better, no fever, no n/v/d. Const alert and no apparent distress General Appearance: cooperative Resp normal air movement and clear to auscultation bilaterally Cardio regular rate and regular rhythm GI soft to palpation, non-tender and non-distended Skin Skin Narrative: toe wrapped ID ID: Route of nutrition/ use of supplements: [] Nutritional Intake: [] IV Site: [] Calhoun Catheter: [] Assessment & Plan Assessment/Plan (1) Osteomyelitis: PLAN: Suspected osteo on MRI of L 1st toe. Podiatry following, wound cx staph aureus, CoNS, and enterococcus. Was associated with freshwater murray. No issues with amox in past, reports rash with PCN. On vanc/zosyn. Will narrow to vanc/u nasyn. Bcx now showing mSSA bacteremia per pcr. Splinter hemorrhages on both thumbs. Will repeat bcx. No veg seen on TTE. Plan for Saturday will be picc and 6 weeks iv abx. Will follow
--- NOTE | 2025-06-25 11:10 | CASEMGMT ---
Appreciate ID's consult and input. See note. Per ID, plan is for pt to stay through the weekend with PICC placement and further IV ABX Saturday. RN CM to the pt room at this time. At this time, the frequency of the IV ATB needs are uncertain. Pt states that he prefers to come to the [facility] if the ABX are once daily. If more than once daily, pt states that he would be agreeable to HH. See DPA note. HH list provided to the pt at this time. Requested the pt to review over the weekend and select 3 preferences. CM to follow if HH is warranted. Pt states understanding and denies any further questions or concerns at this time. CM to follow up on Saturday.
[2025-06-25] MEDS: Ampicillin/Sulbactam 3 GM in 0.9% Normal Saline (100mL MB+) 100 ML IV ×2 (11:13→20:26)
[2025-06-25 15:05] VITALS: BP 127/77; PULSE 77; RESP 16; TEMP 36.5; O2SAT 100
--- NOTE | 2025-06-25 18:52 | PN.HOSP_ITS ---
Reason for Visit Chief Complaint: Foot wound Subjective Subjective Patient was seen and examined today, the plan is for the patient have a PICC line inserted on Saturday, patient is extremely needle phobic and I have elected to give him Ativan 3 mg IV push before the PICC line is attempted. It is possible he will need more Ativan than this due to his extreme fear of needles. Objective Data Objective Data Vital Signs: Vital Signs Temp Pulse Resp BP Pulse Ox O2 Del Method 97.7 F L 77 16 127/77 H 100 Room Air 06/25/25 15:05 06/25/25 15:05 06/25/25 15:05 06/25/25 15:05 06/25/25 15:05 06/25/25 15:05 Oxygen Delivery Method Room Air Weight: 123.6 kg Body Mass Index (BMI) 36.9 Intake & Output: Intake and Output for Last 24 Hours 06/23/25 06/24/25 06/25/25 23:59 23:59 23:59 Intake Total 1512.25 / 1512.25 1230 / 1230 1280 / 1280 Balance 1512.25 / 1512.25 1230 / 1230 1280 / 1280 Lab / Micro Data 06/23/25 07:41 06/23/25 07:41 Labs: Laboratory Results - last 24 hr 06/24/25 21:39: POC Glucose 260 H 06/25/25 06:27: POC Glucose 216 H 06/25/25 11:15: POC Glucose 324 H 06/25/25 16:22: POC Glucose 192 H Micro: Microbiology 06/23/25 07:00 Wound Drainage - Aerobic & Anaerobic Swabs Gram Stain - Final 06/23/25 07:00 Wound Drainage - Aerobic & Anaerobic Swabs Wound Culture - Preliminary Staphylococcus aureus 06/23/25 07:00 Wound Drainage - Aerobic & Anaerobic Swabs Anaerobic Culture - Preliminary Checking for anaerobes, further studies to follow. 06/22/25 15:15 Wound - Toe Gram Stain - Final 06/22/25 15:15 Wound - Toe Wound Culture - Preliminary Staphylococcus aureus Coag Negative Staph GPC Poss Enterococcus sp 06/22/25 11:36 Blood Culture (Wb) - Ankle Bacteria Detection (PCR) - Final Staphylococcus aureus 06/22/25 11:36 Blood Culture (Wb) - Ankle Blood Culture - Final Staphylococcus aureus 08/05/25 11:50 Blood Culture (Wb) - Anticubital Right Blood Culture - Preliminary No growth in 48 hours. Physical Exam Narrative alert, oriented x3, no apparent distress and healthy appearing General Appearance: cooperative, well kempt and well developed Orientation / Consciousness: awake, oriented to person, oriented to place and oriented to time HEENT normocephalic, head/scalp atraumatic and moist oral mucous membranes Eyes PERRL, EOMs intact bilaterally and conjunctivae normal Neck supple, no JVD, thyroid normal and no carotid bruits General: trachea midline Resp normal respiratory effort, no retractions, no use of accessory muscles and clear to auscultation bilaterally Auscultation: Negative for rales, rhonchi or wheezes Cardio regular rate, regular rhythm, S1 normal heart sound, S2 normal heart sound, no murmurs, no rub and no gallops GI normal to inspection, nondistended, normoactive bowel sounds, soft to palpation, non-tender and non-distended Extremity Extremity Narrative: The left foot has a bandage covering it, this bandage was not removed for inspection Neuro oriented x3, CN's II-XII intact bilaterally, no focal motor deficits and no sensory deficits noted Sensorium / Orientation: awake and alert Speech: speech normal Psych affect normal Assessment & Plan Assessment/Plan (1) Abscess of toe of left foot: PLAN: Plan 1. Abscess of the left great toe-wound culture showing Staph aureus, coag negative staph, and Enterococcus. Infectious diseases is managing antibiotic coverage #2 MSSA bacteremia-again patient remains on antibiotics per infectious diseases, PICC line will have to be inserted on Saturday for 6 weeks of antibiotic treatment. #3 type 2 diabetes-under poor control-I will make further adjustments in the patient's insulin regimen as needed #4 hyperlipidemia-patient is on a statin #5 essential hypertension-patient's blood pressure medicine will be adjusted as necessary Total clinical time spent by myself addressing the patient's medical issues, reviewing all of his data, and collaborating with patient's care team: 35- minutes Charges/Coding Visit Charges Inpatient E&M: 60605 Subs Hosp L2
[2025-06-25] MEDS: 0.9% Saline Lock 10 ML Syringe IV (20:26)
[2025-06-25 20:28] VITALS: BP 150/93; PULSE 80; RESP 16; TEMP 36.9; O2SAT 99
--- NOTE | 2025-06-26 00:37 | PCM.RX.CS ---
Consult Antibiotic Management Pharmacy has been consulted to manage selected antibiotic: Vancomycin Type of Intervention Type of Consult: Follow-up Labs Labs: Sodium 133 mmol/L (133-145) 06/23/25 07:41 Potassium 3.9 mmol/L (3.3-5.1) 06/23/25 07:41 Chloride 99 mmol/L (98-108) 06/23/25 07:41 Carbon Dioxide 21.4 mmol/L (21.0-32.0) 06/23/25 07:41 Anion Gap 14 (5-15) 06/23/25 07:41 BUN 21 mg/dL (4-19) H 06/23/25 07:41 Creatinine 0.78 mg/dL (0.70-1.20) 06/23/25 07:41 Est GFR (MDRD) Non-Af 101 (>60) 06/23/25 07:41 BUN/Creatinine Ratio 27.0 RATIO (10-20) H 06/23/25 07:41 Glucose 255 mg/dL (70-99) H 06/23/25 07:41 Vancomycin Trough 36.3 ug/mL (5.0-15.0) H 06/25/25 23:37 Microbiology Microbiology: Microbiology 06/23/25 07:00 Wound Drainage - Aerobic & Anaerobic Swabs Gram Stain - Final 06/23/25 07:00 Wound Drainage - Aerobic & Anaerobic Swabs Wound Culture - Preliminary Staphylococcus aureus 06/23/25 07:00 Wound Drainage - Aerobic & Anaerobic Swabs Anaerobic Culture - Preliminary Checking for anaerobes, further studies to follow. 06/22/25 15:15 Wound - Toe Gram Stain - Final 06/22/25 15:15 Wound - Toe Wound Culture - Preliminary Staphylococcus aureus Coag Negative Staph GPC Poss Enterococcus sp 06/22/25 11:36 Blood Culture (Wb) - Ankle Bacteria Detection (PCR) - Final Staphylococcus aureus 06/22/25 11:36 Blood Culture (Wb) - Ankle Blood Culture - Final Staphylococcus aureus 06/22/25 11:50 Blood Culture (Wb) - Anticubital Right Blood Culture - Preliminary No growth in 48 hours. Goal Trough Goal Trough: 15-20 mcg/mL Pharmacy Plan for Drug Dosing Pharmacy Plan for Drug Dosing: Pharmacy Service will continue to monitor and adjust dosing as required. TROUGH 36.3 @ 11.56 HOURS. HOLD DOSE AND DRAW LEVEL IN 24 HOURS Follow-Up Labs Follow-Up Labs: Trough: Vancomycin Date/Time Labs Ordered Labs to be done on [date and time ordered]: 06/26 @ 3038
[2025-06-26 00:46] LABS: Vancomycin, Trough Level 36.3 ug/mL (5.0-15.0)
[2025-06-26] MEDS: Ampicillin/Sulbactam 3 GM in 0.9% Normal Saline (100mL MB+) 100 ML IV ×4 (01:12→17:53)
[2025-06-26 01:17] VITALS: BP 143/84; PULSE 77; RESP 20; TEMP 36.9; O2SAT 97
[2025-06-26 05:56] VITALS: BP 143/87; PULSE 70; RESP 20; TEMP 36.7; O2SAT 97
[2025-06-26 08:00] VITALS: BP 113/78; PULSE 76; RESP 16; TEMP 36.7; O2SAT 100
[2025-06-26 08:37] VITALS: PULSE 76
[2025-06-26] MEDS: Metoprolol(XL)Succ 100 MG Tablet PO (08:37)
[2025-06-26] MEDS: 0.9% Saline Lock 10 ML Syringe IV ×2 (11:36→17:53)
--- NOTE | 2025-06-26 13:11 | PN.HOSP_ITS ---
Reason for Visit Chief Complaint: Foot wound Subjective Subjective Patient was seen and examined today, his blood culture from 06/25/2025 has not resulted yet. Patient voices no complaints today Objective Data Objective Data Vital Signs: Vital Signs Temp Pulse Resp BP Pulse Ox O2 Del Method 98.1 F 76 16 113/78 100 Room Air 06/26/25 08:00 06/26/25 08:37 06/26/25 08:00 06/26/25 08:00 06/26/25 08:00 06/26/25 08:00 Oxygen Delivery Method Room Air Weight: 123.6 kg Body Mass Index (BMI) 36.9 Intake & Output: Intake and Output for Last 24 Hours 06/24/25 06/25/25 06/26/25 23:59 23:59 23:59 Intake Total 1230 / 1230 1380 / 1380 300 / 300 Balance 1230 / 1230 1380 / 1380 300 / 300 Lab / Micro Data 06/23/25 07:41 06/23/25 07:41 Labs: Laboratory Results - last 24 hr 06/25/25 16:22: POC Glucose 192 H 06/25/25 20:34: POC Glucose 203 H 06/25/25 23:37: Vancomycin Trough 36.3 H 06/26/25 06:01: POC Glucose 168 H 06/26/25 11:26: POC Glucose 164 H Micro: Microbiology 06/22/25 15:15 Wound - Toe Gram Stain - Final 06/22/25 15:15 Wound - Toe Wound Culture - Preliminary Staphylococcus aureus Coag Negative Staph GPC Poss Enterococcus sp 06/23/25 07:00 Wound Drainage - Aerobic & Anaerobic Swabs Gram Stain - Final 06/23/25 07:00 Wound Drainage - Aerobic & Anaerobic Swabs Wound Culture - Final Staphylococcus aureus 06/23/25 07:00 Wound Drainage - Aerobic & Anaerobic Swabs Anaerobic Culture - Preliminary Checking for anaerobes, further studies to follow. 06/24/25 11:41 Blood Culture (Wb) - Left Hand Blood Culture - Preliminary No growth in 48 hours. 06/22/25 11:36 Blood Culture (Wb) - Ankle Bacteria Detection (PCR) - Final Staphylococcus aureus 06/22/25 11:36 Blood Culture (Wb) - Ankle Blood Culture - Final Staphylococcus aureus 06/22/25 11:50 Blood Culture (Wb) - Anticubital Right Blood Culture - Preliminary No growth in 48 hours. Physical Exam Narrative alert, oriented x3, no apparent distress and healthy appearing General Appearance: cooperative, well kempt and well developed Orientation / Consciousness: awake, oriented to person, oriented to place and oriented to time HEENT normocephalic, head/scalp atraumatic and moist oral mucous membranes Eyes PERRL, EOMs intact bilaterally and conjunctivae normal Neck supple, no JVD, thyroid normal and no carotid bruits General: trachea midline Resp normal respiratory effort, no retractions, no use of accessory muscles and clear to auscultation bilaterally Auscultation: Negative for rales, rhonchi or wheezes Cardio regular rate, regular rhythm, S1 normal heart sound, S2 normal heart sound, no murmurs, no rub and no gallops GI normal to inspection, nondistended, normoactive bowel sounds, soft to palpation, non-tender and non-distended Extremity Extremity Narrative: The left foot has a bandage covering it, this bandage was not removed for inspection Neuro oriented x3, CN's II-XII intact bilaterally, no focal motor deficits and no sensory deficits noted Sensorium / Orientation: awake and alert Speech: speech normal Psych affect normal Assessment & Plan Assessment/Plan (1) Abscess of toe of left foot: PLAN: Plan 1. Abscess of the left great toe-wound culture showing Staph aureus, coag negative staph, and Enterococcus. Infectious diseases is managing antibiotic coverage #2 MSSA bacteremia-again patient remains on antibiotics per infectious diseases, PICC line will have to be inserted on Saturday for 6 weeks of antibiotic treatment. #3 type 2 diabetes-under poor control-I will make further adjustments in the patient's insulin regimen as needed #4 hyperlipidemia-patient is on a statin #5 essential hypertension-patient's blood pressure medicine will be adjusted as necessary Total clinical time spent by myself addressing the patient's medical issues, reviewing all of his data, and collaborating with patient's care team: 35- minutes Charges/Coding Visit Charges Inpatient E&M: 49605 Subs Hosp L2
[2025-06-26 14:54] VITALS: BP 145/85; PULSE 76; RESP 14; TEMP 36.4; O2SAT 96
[2025-06-26 21:06] VITALS: BP 144/81; PULSE 81; RESP 18; TEMP 37.1; O2SAT 98
[2025-06-27] MEDS: Ampicillin/Sulbactam 3 GM in 0.9% Normal Saline (100mL MB+) 100 ML IV ×4 (00:25→17:41)
[2025-06-27 00:46] LABS: Vancomycin, Random Level 18.4 ug/mL (0.0-15.0)
[2025-06-27] MEDS: Vancomycin Trough/Random Due 1 LAB MC (01:16)
[2025-06-27] MEDS: Vancomycin HCl 1,000 MG in 0.9% Normal Saline (250mL Bag) 250 ML 250 MG IV ×2 (01:19→12:38)
[2025-06-27] MEDS: 0.9% Normal Saline (250mL Bag) 250 ML 15 ML IV (01:20)
--- NOTE | 2025-06-27 01:22 | PCM.RX.CS ---
Consult Antibiotic Management Pharmacy has been consulted to manage selected antibiotic: Vancomycin Type of Intervention Type of Consult: Follow-up Labs Labs: Sodium 133 mmol/L (133-145) 06/23/25 07:41 Potassium 3.9 mmol/L (3.3-5.1) 06/23/25 07:41 Chloride 99 mmol/L (98-108) 06/23/25 07:41 Carbon Dioxide 21.4 mmol/L (21.0-32.0) 06/23/25 07:41 Anion Gap 14 (5-15) 06/23/25 07:41 BUN 21 mg/dL (4-19) H 06/23/25 07:41 Creatinine 0.78 mg/dL (0.70-1.20) 06/23/25 07:41 Est GFR (MDRD) Non-Af 101 (>60) 06/23/25 07:41 BUN/Creatinine Ratio 27.0 RATIO (10-20) H 06/23/25 07:41 Glucose 255 mg/dL (70-99) H 06/23/25 07:41 Vancomycin Trough 36.3 ug/mL (5.0-15.0) H 06/25/25 23:37 Random Vancomycin 18.4 ug/mL (0.0-15.0) H 06/26/25 23:45 Microbiology Microbiology: Microbiology 06/22/25 15:15 Wound - Toe Gram Stain - Final 06/22/25 15:15 Wound - Toe Wound Culture - Preliminary Staphylococcus aureus Coag Negative Staph GPC Poss Enterococcus sp 06/23/25 07:00 Wound Drainage - Aerobic & Anaerobic Swabs Gram Stain - Final 06/23/25 07:00 Wound Drainage - Aerobic & Anaerobic Swabs Wound Culture - Final Staphylococcus aureus 06/23/25 07:00 Wound Drainage - Aerobic & Anaerobic Swabs Anaerobic Culture - Preliminary Checking for anaerobes, further studies to follow. 06/24/25 11:41 Blood Culture (Wb) - Left Hand Blood Culture - Preliminary No growth in 48 hours. 06/22/25 11:36 Blood Culture (Wb) - Ankle Bacteria Detection (PCR) - Final Staphylococcus aureus 06/22/25 11:36 Blood Culture (Wb) - Ankle Blood Culture - Final Staphylococcus aureus 06/22/25 11:50 Blood Culture (Wb) - Anticubital Right Blood Culture - Preliminary No growth in 48 hours. Goal Trough Goal Trough: 15-20 mcg/mL Pharmacy Plan for Drug Dosing Pharmacy Plan for Drug Dosing: Pharmacy Service will continue to monitor and adjust dosing as required. RANDOM LEVEL 18.4. START 1GM Q12H AND DRAW TROUGH PRIOR TO 4TH DOSE Follow-Up Labs Follow-Up Labs: Trough: Vancomycin Date/Time Labs Ordered Labs to be done on [date and time ordered]: 06/28 @ 1300
[2025-06-27 03:54] VITALS: BP 154/92; PULSE 73; RESP 18; TEMP 36.8; O2SAT 96
[2025-06-27] MEDS: 0.9% Saline Lock 10 ML Syringe IV ×3 (06:08→17:41)
[2025-06-27 07:50] VITALS: BP 135/87; PULSE 72; RESP 15; TEMP 36.4; O2SAT 98
[2025-06-27 07:53] VITALS: PULSE 72
[2025-06-27] MEDS: Metoprolol(XL)Succ 100 MG Tablet PO (07:53)
--- NOTE | 2025-06-27 16:25 | PN.HOSP_ITS ---
Reason for Visit Chief Complaint: Foot wound Subjective Subjective Patient was seen and examined today, he is due to have a PICC line placed tomorrow, I have written for IV Ativan for the patient due to his needle phobia, patient voices no complaints today Objective Data Objective Data Vital Signs: Vital Signs Temp Pulse Resp BP Pulse Ox O2 Del Method 97.5 F L 72 15 135/87 H 98 Room Air 06/27/25 07:50 06/27/25 07:53 06/27/25 07:50 06/27/25 07:50 06/27/25 07:50 06/27/25 07:50 Oxygen Delivery Method Room Air Weight: 123.6 kg Body Mass Index (BMI) 36.9 Intake & Output: Intake and Output for Last 24 Hours 06/25/25 06/26/25 06/27/25 23:59 23:59 23:59 Intake Total 1380 / 1380 400 / 400 840 / 840 Balance 1380 / 1380 400 / 400 840 / 840 Lab / Micro Data 06/23/25 07:41 06/23/25 07:41 Labs: Laboratory Results - last 24 hr 06/26/25 16:19: POC Glucose 239 H 06/26/25 21:15: POC Glucose 240 H 06/26/25 23:45: Random Vancomycin 18.4 H 06/27/25 06:12: POC Glucose 156 H 06/27/25 11:50: POC Glucose 203 H Micro: Microbiology 06/23/25 07:00 Wound Drainage - Aerobic & Anaerobic Swabs Gram Stain - Final 06/23/25 07:00 Wound Drainage - Aerobic & Anaerobic Swabs Wound Culture - Final Staphylococcus aureus 06/23/25 07:00 Wound Drainage - Aerobic & Anaerobic Swabs Anaerobic Culture - Final No anaerobic bacteria isolated. 06/22/25 11:50 Blood Culture (Wb) - Anticubital Right Blood Culture - Final No growth in 5 days. 06/22/25 15:15 Wound - Toe Gram Stain - Final 06/22/25 15:15 Wound - Toe Wound Culture - Final Staphylococcus aureus Coag Negative Staph Enterococcus faecalis 06/25/25 08:56 Blood Culture (Wb) - Left Hand Blood Culture - Preliminary No growth in 48 hours. 06/24/25 11:41 Blood Culture (Wb) - Left Hand Blood Culture - Preliminary No growth in 48 hours. 06/22/25 11:36 Blood Culture (Wb) - Ankle Bacteria Detection (PCR) - Final Staphylococcus aureus 06/22/25 11:36 Blood Culture (Wb) - Ankle Blood Culture - Final Staphylococcus aureus Physical Exam Narrative alert, oriented x3, no apparent distress and healthy appearing General Appearance: cooperative, well kempt and well developed Orientation / Consciousness: awake, oriented to person, oriented to place and oriented to time HEENT normocephalic, head/scalp atraumatic and moist oral mucous membranes Eyes PERRL, EOMs intact bilaterally and conjunctivae normal Neck supple, no JVD, thyroid normal and no carotid bruits General: trachea midline Resp normal respiratory effort, no retractions, no use of accessory muscles and clear to auscultation bilaterally Auscultation: Negative for rales, rhonchi or wheezes Cardio regular rate, regular rhythm, S1 normal heart sound, S2 normal heart sound, no murmurs, no rub and no gallops GI normal to inspection, nondistended, normoactive bowel sounds, soft to palpation, non-tender and non-distended Extremity Extremity Narrative: The left foot has a bandage covering it, this bandage was not removed for inspection Neuro oriented x3, CN's II-XII intact bilaterally, no focal motor deficits and no sensory deficits noted Sensorium / Orientation: awake and alert Speech: speech normal Psych affect normal Assessment & Plan Assessment/Plan (1) Abscess of toe of left foot: PLAN: Plan 1. Abscess of the left great toe-wound culture showing Staph aureus, coag negative staph, and Enterococcus. Infectious diseases is managing antibiotic coverage, it is not verified that the patient has osteomyelitis #2 MSSA bacteremia-again patient remains on antibiotics per infectious diseases, PICC line will have to be inserted on Saturday for 6 weeks of antibiotic treatment. Patient will need premedicated before his PICC line is inserted, I have written for 3 mg of IV Ativan to be given just prior to insertion. #3 type 2 diabetes-under poor control-I will make further adjustments in the patient's insulin regimen as needed #4 hyperlipidemia-patient is on a statin #5 essential hypertension-patient's blood pressure medicine will be adjusted as necessary Total clinical time spent by myself addressing the patient's medical issues, reviewing all of his data, and collaborating with patient's care team: 35- minutes Charges/Coding Visit Charges Inpatient E&M: 57565 Subs Hosp L2
[2025-06-27 16:30] VITALS: BP 148/87; PULSE 73; RESP 14; TEMP 36.7; O2SAT 100
[2025-06-27 21:47] VITALS: BP 150/82; PULSE 78; RESP 18; TEMP 36.9; O2SAT 97
[2025-06-28] MEDS: Ampicillin/Sulbactam 3 GM in 0.9% Normal Saline (100mL MB+) 100 ML IV ×3 (00:23→11:16)
[2025-06-28] MEDS: Vancomycin HCl 1,000 MG in 0.9% Normal Saline (250mL Bag) 250 ML 250 MG IV (01:15)
[2025-06-28 06:06] VITALS: BP 155/89; PULSE 75; RESP 18; TEMP 36.8; O2SAT 98
[2025-06-28 08:02] VITALS: BP 155/98; PULSE 67
[2025-06-28] MEDS: Metoprolol(XL)Succ 100 MG Tablet PO (08:02)
[2025-06-28 09:04] VITALS: BP 155/98; PULSE 66; RESP 16; TEMP 36.8; O2SAT 99
--- NOTE | 2025-06-28 12:27 | CASEMGMT ---
Addendum entered by Arianna Hernandez 06/28/25 15:49: Received tc from [facility], they are unable to accept pt for services. Addendum entered by Arianna Hernandez 06/28/25 15:46: Updated hospitalist on HHC availability to start at pt home. Addendum entered by Arianna Hernandez 06/28/25 15:23: Received notification from Dilia that [facility] can accept pt for SOC on Sat at 8am. CORKY MEDINA into pt room, pt made aware of options left who have not responded and aware that [facility] can take his insurance and accept. Pt states he would like to proceed with [facility]. Plan for dc tomorrow and HH to start on Saturday morning. Updated [facility]. Addendum entered by Arianna Hernandez 06/28/25 13:44: TC to [facility] to see if they accept pt insurance, Dilia to check and notify CORKY MEDNIA back. Addendum entered by Arianna Hernandez 06/28/25 12:56: Received notification that [facility] is unable to accept pt for care. Addendum entered by Arianna Hernandez 06/28/25 12:36: Provided pt with a verbal list of infusion companies, pt chose [facility]. Referral sent to [facility] at this time via [employer]. Original Note: Received IV atb rx from [facility]. Pt to have IV every 8 hours. CORKY MEDINA into pt room, pt sitting up in bed with family at bedside. Pt already had [facility] list, pt reviewed and states he does not have a preference of agency. Pt would like for the IV and wound care. Pt aware that the [facility] will teach a family member these items and pt/family will perform on days [facility] is not there. Pt agreeable to this. Referral sent to all agencies on list at this time.
--- NOTE | 2025-06-28 12:30 | PCM.PN.ID ---
Physical Exam Narrative Feeling ok, no fever, no n/v/d. Const alert and no apparent distress General Appearance: cooperative Resp normal air movement and clear to auscultation bilaterally Cardio regular rate and regular rhythm GI soft to palpation, non-tender and non-distended Skin no rashes or lesions noted ID ID: Route of nutrition/ use of supplements: [] Nutritional Intake: [] IV Site: [] [place] Catheter: [] Assessment & Plan Assessment/Plan (1) Osteomyelitis: PLAN: MSSA bacteremia due to suspected osteo on MRI of L 1st toe. Podiatry following, wound cx MSSA, CoNS, and enterococcus. Was associated with freshwater murray. No issues with amox in past, reports rash with PCN. On vanc/unasyn. Splinter hemorrhages on both thumbs. Repeat bcx neg since 06/24. No veg seen on TTE. Will order 6 weeks iv cefazolin, po doxy, po flagyl. Stop date 08/05/25 with weekly labs and ID followup in 2 weeks, d/w family preservation caseworker. Will follow
[2025-06-28 13:38] LABS: Estimated Creatinine Clearance 82.54 ml/min (50-250); Vancomycin, Trough Level 21.5 ug/mL (5.0-15.0)
[2025-06-28] MEDS: Cefazolin 2 GM in 0.9% Normal Saline (100mL Bag) 100 ML IV ×2 (13:51→21:48)
[2025-06-28 14:26] VITALS: BP 159/93; PULSE 76; RESP 16; TEMP 36.9; O2SAT 100
[2025-06-28] MEDS: Lorazepam 2 MG/ML WCH Syringe 3 MG IV (15:37)
--- NOTE | 2025-06-28 16:03 | PCM.PN.HOSP ---
Subjective Subjective Doing well, no issues overnight Objective Data Objective Data Vital Signs: Vital Signs Temp Pulse Resp BP Pulse Ox O2 Del Method 98.4 F 76 16 159/93 H 100 Room Air 06/28/25 14:26 06/28/25 14:26 06/28/25 14:26 06/28/25 14:26 06/28/25 14:26 06/28/25 14:26 Oxygen Delivery Method Room Air Weight: 272 lb 7.861 oz Body Mass Index (BMI) 36.9 Intake & Output: Intake and Output for Last 24 Hours 06/27/25 06/28/25 06/29/25 03:59 03:59 03:59 Intake Total 670 / 670 1190 / 1190 310 / 310 Balance 670 / 670 1190 / 1190 310 / 310 Lab / Micro Data 06/23/25 07:41 06/28/25 12:57 Labs: Laboratory Results - last 24 hr 06/27/25 16:00: POC Glucose 199 H 06/27/25 21:52: POC Glucose 186 H 06/28/25 06:09: POC Glucose 190 H 06/28/25 11:11: POC Glucose 146 H 06/28/25 12:57: Creatinine 1.26 H, Estim Creat Clear Calc 82.54, Est GFR (MDRD) Non-Af 64, Vancomycin Trough 21.5 H Micro: Microbiology 06/26/25 08:11 Blood Culture (Wb) - Left Hand Blood Culture - Preliminary No growth in 48 hours. 06/23/25 07:00 Wound Drainage - Aerobic & Anaerobic Swabs Gram Stain - Final 06/23/25 07:00 Wound Drainage - Aerobic & Anaerobic Swabs Wound Culture - Final Staphylococcus aureus 06/23/25 07:00 Wound Drainage - Aerobic & Anaerobic Swabs Anaerobic Culture - Final No anaerobic bacteria isolated. 06/22/25 11:50 Blood Culture (Wb) - Anticubital Right Blood Culture - Final No growth in 5 days. 06/22/25 15:15 Wound - Toe Gram Stain - Final 06/22/25 15:15 Wound - Toe Wound Culture - Final Staphylococcus aureus Coag Negative Staph Enterococcus faecalis 06/25/25 08:56 Blood Culture (Wb) - Left Hand Blood Culture - Preliminary No growth in 48 hours. 06/24/25 11:41 Blood Culture (Wb) - Left Hand Blood Culture - Preliminary No growth in 48 hours. 06/22/25 11:36 Blood Culture (Wb) - Ankle Bacteria Detection (PCR) - Final Staphylococcus aureus 06/22/25 11:36 Blood Culture (Wb) - Ankle Blood Culture - Final Staphylococcus aureus Physical Exam Narrative General: Alert, Oriented x3, Cooperative, No apparent distress HEENT: Atraumatic, PERRLA, EOMI, Normocephalic Oral: Moist Mucosa Neck: Supple, No JVD Lungs: Diminished, Normal air movement, No rhonchi, No wheeze, No rales Cardiovascular: Regular rate, Regular Rhythm, Normal S1, Normal S2, No murmurs Abdomen: Soft, Non Tender, Non-Distended, No Hepato-splenomegaly Extremities: No edema, Capillary Refill Less than 3 Seconds Skin: Left toe wound dressed Musculoskeletal: No Tenderness to Palpation of Joints or Extremities Neurological: No focal neurological deficits, Motor Exam 5/5 strength throughout, Sensory exam intact to light touch and pain Psych/Mental Status: Normal Affect, Appropriate Assessment & Plan Assessment/Plan (1) Abscess of toe of left foot: PLAN: Plan 1. Diabetic foot abscess on left great toe status post debridement with MSSA bacteremia/type 2 diabetes ? He developed MSSA bacteremia from his foot infection that grew staph aures and Enterococcus ? He has been transitioned to Ancef, doxycycline, and Flagyl by infectious disease and has a PICC line placed. He will be able to be discharged tomorrow as the home health care agency he has selected can see him on Saturday ? MRI demonstrated probable osteomyelitis however since there is no cortical disruption podiatry did not feel it necessary for any aggressive surgery and recommended medical management. ? Continue with insulin and metformin ? Accu-Cheks ACHS ? Will monitor and make adjustments as necessary ? Echo did not demonstrate any vegetations, EF of 65% 2. Essential HTN/HLD ? Continue with his home blood pressure medications and his home cholesterol medications ? Will monitor make adjustments as necessary DVT: SCDs Charges/Coding Visit Charges Inpatient E&M: 31819 Subs Hosp L2
[2025-06-28 21:39] VITALS: BP 151/94; PULSE 73; RESP 18; TEMP 36.6; O2SAT 97
[2025-06-29 05:27] VITALS: BP 147/85; PULSE 69; RESP 18; TEMP 36.6; O2SAT 97
[2025-06-29] MEDS: Cefazolin 2 GM in 0.9% Normal Saline (100mL Bag) 100 ML IV ×2 (05:31→14:29)
[2025-06-29 06:04] LABS: Hematocrit 33.9 % (40-54); Hemoglobin 11.1 g/dL (13.0-16.5); Immature Granulocytes Count 0.090 X10^3/uL (0.0-0.0); Mean Corp Hgb Conc 32.7 g/dL (32-36); Mean Corpuscular Volume 92.1 fL (80-94); Mean Platelet Vol. 9.6 fl (6.2-12.0); NRBC Flagged by Analyzer 0 % (0-5); Platelet Count 343 K/mm3 (150-450); RBC Distribution Width CV 12.5 % (11.6-14.6); RBC Distribution Width SD 41.9 fl (35.1-43.9); Red Blood Count 3.68 M/mm3 (4.6-6.2); White Blood Count 12.2 K/mm3 (4.4-11.0)
[2025-06-29 06:27] LABS: Anion Gap 14 (5-15); BUN 25 mg/dL (4-19); BUN/Creat Ratio 19.7 RATIO (10-20); Calcium,Total 8.7 mg/dL (7.6-11.0); Carbon Dioxide 21.4 mmol/L (21.0-32.0); Chloride 103 mmol/L (98-108); Estimated Creatinine Clearance 82.54 ml/min (50-250); Glucose 118 mg/dL (70-99); Potassium 3.9 mmol/L (3.3-5.1)
[2025-06-29 08:12] VITALS: BP 142/79; PULSE 70
[2025-06-29] MEDS: Metoprolol(XL)Succ 100 MG Tablet PO (08:12)
--- NOTE | 2025-06-29 08:43 | CASEMGMT ---
Addendum entered by Arianna Hernandez 06/29/25 10:09: DC instructions and picc insertion report sent to [facility] via [facility]. Addendum entered by Arianna Hernandez 06/29/25 09:49: IV order [facility] via [facility] at this time. Original Note: Received notification from [facility] that the nurse educator could come today to the hospital to teach cg IV so pt will not miss evening dose upon dc'ing home. RN CM into pt room, pt states he does not want this as he would like to give his belly a break. Instructed on importance and encouraged this although pt declined. Updated [facility].
[2025-06-29 09:00] VITALS: BP 142/79; PULSE 70; RESP 18; TEMP 36.3; O2SAT 97
--- NOTE | 2025-06-29 09:16 | DCINST_ITS ---
Discharge Instructions DC O2, CPAP, BIPAP needs Home O2 Discharge instructions: No Dressing / Incision Discharge Activity: Return to Normal Activity Dressing / Incision Call your doctor if you observe: Fever of 101 or Higher, Shortness of breath, Dizziness, Fainting spells, Swelling in the ankles, Chest pain and Increased palpitations (irregular heartbeat) Follow Up Care Test Results: Test results from this visit will be discussed in further detail at your follow- up appointment, if applicable. Discharge Plan Admission Admit Date/Time: 06/22/25 13:05 Attending Provider: Abiodun Ruelas Primary Care Provider: Jorge Maria Consulting Providers: Elise Smith; Tommy Worthy; Luis Allen; Aaron Pascual Instructions Patient Instructions: Diabetes Foot Infections Tx, Diabetes Foot Injury Tx, Diabetes Food Shop Meals Prep, Diabetes Food Tips Ch, Diabetes Exercise Program Start, Diabetes Carbs Fats Protein Discharge Orders/Prescriptions Prescriptions: New cefazolin 2 gram recon soln 2 g IV Q8H 38 Days Rx Instructions: stop date 08/05/25. Dx: MSSA bacteremia. Weekly bmp, cbc, and esr. Fax to [phone]. Routine picc care per protocol. metronidazole 500 mg Tablet 500 mg PO TID 38 Days Qty: 114 0RF doxycycline monohydrate 100 mg Capsule 100 mg PO BID 38 Days Qty: 76 0RF metformin 1,000 mg Tablet 1,000 mg PO BIDCM 30 Days Qty: 60 0RF glimepiride 4 mg Tablet 4 mg PO BIDCM 30 Days Qty: 60 0RF Continued amlodipine 5 mg tablet 5 mg PO DAILY atorvastatin 40 mg tablet 40 mg PO DAILY Trulicity 3 mg/0.5 mL pen injector 3 mg SUBCUT QWEEK Patient Comments: Inject 3 mg subcutaneously one time a week. Inject once per week. Discard Pen After hydrochlorothiazide 25 mg tablet 25 mg PO DAILY metoprolol succinate 100 mg tablet extended release 24 hr 100 mg PO DAILY lisinopril 20 MG tablet 40 mg PO DAILY Discontinued metformin 500 MG tablet 500 mg PO BID Qty: 60 0RF glimepiride 4 mg tablet 4 mg PO DAILY Referrals / Follow Up: Luis Allen MD [Med Staff - Active Staff] - Within 2 Weeks Jorge Maria MD [Primary Care Provider] - Within 1 Week Care Physician,No Primary [Non-Staff] - Disposition Disposition (needs filled in before D/C Order can be placed): Home Health Service
[2025-06-29 10:00] VITALS: RESP 18
--- NOTE | 2025-06-29 10:02 | CASEMGMT ---
Received notification that [facility] has declined pt for services.
--- NOTE | 2025-06-29 11:03 | DS.PCM_ITS ---
Providers Date of Admission: 06/22/25 Primary Care Physician: Dr. Jorge Maria MD Consultations 06/22/25 14:17 Consult: Onc/Wound/corporate development officer Routine Comment: 06/22/25 17:14 Consult: Podiatry Routine Consulting Provider: Elise Smith Reason for Consult: diabetic foot ulcer. EMERGENT Consult: No Notified: Yes Date Notified: 06/22/25 Time Notified: 17:14 Method of Notification: Verbal 06/23/25 07:28 Consult: Infectious Disease Routine Consulting Provider: Luis Allen Reason for Consult: Antibiotic coverage EMERGENT Consult: No Notified: Yes Date Notified: 06/23/25 Time Notified: 07:29 Method of Notification: Verbal Reason For Visit: DIABETIC FOOT WOUND Diagnosis Discharge Diagnosis (1) Abscess of toe of left foot: Status: Acute Code(s): L02.612 - Cutaneous abscess of left foot Medications at Discharge Home Medications amlodipine 5 mg tablet 5 mg PO DAILY blood pressure 06/22/25 atorvastatin 40 mg tablet 40 mg PO DAILY cholesterol 06/22/25 dulaglutide 3 mg/0.5 mL subcutaneous pen injector (Trulicity) 3 mg subcut QWEEK blood sugar 06/22/25 hydrochlorothiazide 25 mg tablet 25 mg PO DAILY blood pressure 06/22/25 lisinopril 20 mg tablet 40 mg PO DAILY blood pressure 06/22/25 metoprolol succinate 100 mg tablet,extended release 24 hr 100 mg PO DAILY blood pressure 06/22/25 cefazolin 2 gram intravenous solution 2 g IV Q8H 38 days 06/28/25 doxycycline monohydrate 100 mg capsule 100 mg PO BID 38 days #76 caps 06/28/25 metronidazole 500 mg tablet 500 mg PO TID 38 days #114 tabs 06/28/25 glimepiride 4 mg tablet 4 mg PO BIDCM 30 days #60 tabs 06/29/25 metformin 1,000 mg tablet 1,000 mg PO BIDCM 30 days #60 tabs 06/29/25 Hospital Course Operations None Procedures 2-D Echocardiogram, PICC line placement and - (Wound debridement) Summary of Care Provided Minutes Spent on Discharge: 35 Hospital Course: Per HPI: RUBEN FABIAN, is a 64 M who presents to the emergency room with a foot wound. About a month or so ago, patient was on vacation and walking on the beach. He has neuropathy so does not recall any instance where he injured his foot but when he came home he noticed a big blister on the distal aspect of his left great toe. Eventually did unroofed and it bled. He has been caring for it but is been having very serous drainage. He had made an appointment with his PCP last week and he saw them today and they sent him to the emergency room. Patient had an x-ray that showed no acute process but the patient did receive vancomycin and meropenem. Patient notes that his left toe has gotten more red over the past week. Hospital Course: 1. Diabetic foot abscess on left great toe status post debridement with MSSA bacteremia/type 2 diabetes ? He developed MSSA bacteremia from his foot infection that grew staph aures and Enterococcus ? He has been transitioned to Ancef, doxycycline, and Flagyl by infectious disease and has a PICC line placed on 06/28/2025. Duration of antibiotics will be for 30 days ? MRI demonstrated probable osteomyelitis however since there is no cortical disruption podiatry did not feel it necessary for any aggressive surgery and recommended medical management. ? Continue with insulin and metformin ? Accu-Cheks ACHS ? His A1c was elevated to over 11 on admission his metformin was increased from 500 mg twice daily to 1000 mg p.o. twice daily, his glimepiride was also increased to twice daily dosing ? Echo did not demonstrate any vegetations, EF of 65% ? I discussed with him the plan for discharge today and he expressed understanding of the risks and benefits of going home and would like to go home today. I recommend that he follow-up with his PCP in 3 to 5 days to monitor his blood sugars and his electrolytes given the adjustments made to his metformin and glimepiride, he may need to proceed with insulin as well, he is already on Trulicity. We did have extensive discussions on dietary habits prior to discharge. 2. Essential HTN/HLD ? Continue with his home blood pressure medications and his home cholesterol medications ? Will monitor make adjustments as necessary Physical Exam Narrative General: Alert, Oriented x3, Cooperative, No apparent distress HEENT: Atraumatic, PERRLA, EOMI, Normocephalic Oral: Moist Mucosa Neck: Supple, No JVD Lungs: Diminished, Normal air movement, No rhonchi, No wheeze, No rales Cardiovascular: Regular rate, Regular Rhythm, Normal S1, Normal S2, No murmurs Abdomen: Soft, Non Tender, Non-Distended, No Hepato-splenomegaly Extremities: No edema, Capillary Refill Less than 3 Seconds Skin: Left toe wound dressed Musculoskeletal: No Tenderness to Palpation of Joints or Extremities Neurological: No focal neurological deficits, Motor Exam 5/5 strength throughout, Sensory exam intact to light touch and pain Psych/Mental Status: Normal Affect, Appropriate Weight / BMI Weight Weight: 272 lb 7.861 oz Body Mass Index (BMI) 36.9 ABG / Lab / Microbiology Data 06/29/25 05:02 06/29/25 05:02 Laboratory: Laboratory Results - last 24 hr 06/28/25 11:11: POC Glucose 146 H 06/28/25 12:57: Creatinine 1.26 H, Estim Creat Clear Calc 82.54, Est GFR (MDRD) Non-Af 64, Vancomycin Trough 21.5 H 06/28/25 17:00: POC Glucose 100 06/28/25 21:46: POC Glucose 80 06/29/25 05:02: WBC 12.2 H, RBC 3.68 L, Hgb 11.1 L, Hct 33.9 L, MCV 92.1, MCH 30.2, MCHC 32.7, RDW Std Deviation 41.9, RDW Coeff of Domenica 12.5, Plt Count 343, MPV 9.6, Immature Gran % (Auto) 0.700, Neut % (Auto) 67.1, Lymph % (Auto) 22.4, Nance % (Auto) 7.1, Eos % (Auto) 2.2, Baso % (Auto) 0.5, Absolute Neuts (auto) 8.2 H, Absolute Lymphs (auto) 2.72, Nucleated RBC % 0, Sodium 138, Potassium 3.9, Chloride 103, Carbon Dioxide 21.4, Anion Gap 14, BUN 25 H, Creatinine 1.26 H, Estim Creat Clear Calc 82.54, Est GFR (MDRD) Non-Af 64, BUN/Creatinine Ratio 19.7, Glucose 118 H, Calcium 8.7 06/29/25 06:29: POC Glucose 138 H Microbiology: Microbiology 06/26/25 08:11 Blood Culture (Wb) - Left Hand Blood Culture - Preliminary No growth in 48 hours. 06/23/25 07:00 Wound Drainage - Aerobic & Anaerobic Swabs Gram Stain - Final 06/23/25 07:00 Wound Drainage - Aerobic & Anaerobic Swabs Wound Culture - Final Staphylococcus aureus 06/23/25 07:00 Wound Drainage - Aerobic & Anaerobic Swabs Anaerobic Culture - Final No anaerobic bacteria isolated. 06/22/25 11:50 Blood Culture (Wb) - Anticubital Right Blood Culture - Final No growth in 5 days. 06/22/25 15:15 Wound - Toe Gram Stain - Final 06/22/25 15:15 Wound - Toe Wound Culture - Final Staphylococcus aureus Coag Negative Staph Enterococcus faecalis 06/25/25 08:56 Blood Culture (Wb) - Left Hand Blood Culture - Preliminary No growth in 48 hours. 06/24/25 11:41 Blood Culture (Wb) - Left Hand Blood Culture - Preliminary No growth in 48 hours. 06/22/25 11:36 Blood Culture (Wb) - Ankle Bacteria Detection (PCR) - Final Staphylococcus aureus 06/22/25 11:36 Blood Culture (Wb) - Ankle Blood Culture - Final Staphylococcus aureus D/C Instructions Call your doctor if you observe: Fever of 101 or Higher, Shortness of breath, Dizziness, Fainting spells, Swelling in the ankles, Chest pain and Increased palpitations (irregular heartbeat) DC O2, CPAP, BIPAP Needs Home O2 Discharge instructions: No Meaningful Use Info Meaningful Use Meaningful Use Diagnoses (Choose all that apply): None applicable Discharge Plan Admission Admit Date/Time: 06/22/25 13:05 Attending Provider: Abiodun Ruelas Primary Care Provider: Jorge Maria Consulting Providers: Elise Smith; Tommy Worthy; Luis Allen; Aaron Pascual Instructions Patient Instructions: Diabetes Foot Infections Tx, Diabetes Foot Injury Tx, Diabetes Food Shop Meals Prep, Diabetes Food Tips Ch, Diabetes Exercise Program Start, Diabetes Carbs Fats Protein Discharge Orders/Prescriptions Prescriptions: New cefazolin 2 gram recon soln 2 g IV Q8H 38 Days Rx Instructions: stop date 08/05/25. Dx: MSSA bacteremia. Weekly bmp, cbc, and esr. Fax to [phone]. Routine picc care per protocol. metronidazole 500 mg Tablet 500 mg PO TID 38 Days Qty: 114 0RF doxycycline monohydrate 100 mg Capsule 100 mg PO BID 38 Days Qty: 76 0RF metformin 1,000 mg Tablet 1,000 mg PO BIDCM 30 Days Qty: 60 0RF glimepiride 4 mg Tablet 4 mg PO BIDCM 30 Days Qty: 60 0RF Continued amlodipine 5 mg tablet 5 mg PO DAILY atorvastatin 40 mg tablet 40 mg PO DAILY Trulicity 3 mg/0.5 mL pen injector 3 mg SUBCUT QWEEK Patient Comments: Inject 3 mg subcutaneously one time a week. Inject once per week. Discard Pen After hydrochlorothiazide 25 mg tablet 25 mg PO DAILY metoprolol succinate 100 mg tablet extended release 24 hr 100 mg PO DAILY lisinopril 20 MG tablet 40 mg PO DAILY Discontinued metformin 500 MG tablet 500 mg PO BID Qty: 60 0RF glimepiride 4 mg tablet 4 mg PO DAILY Referrals / Follow Up: Luis Allen MD [Med Staff - Active Staff] - Within 2 Weeks Jorge Maria MD [Primary Care Provider] - Within 1 Week Care Physician,No Primary [Non-Staff] - Disposition Disposition (needs filled in before D/C Order can be placed): Home Health Service Charges/Coding Visit Charges Inpatient E&M: 72457 Disch Hosp >30min
--- NOTE | 2025-06-29 11:21 | PHA.DC.MC.R ---
Pharmacy [facility] Counseling Pharmacy Service has performed discharge medication reconciliation and counseling for this patient. Medications discussed: Cefazolin 2g IV Q8H, Doxycycline 100 mg PO BID, Metronidazole 500 mg PO TID, Metformin 1000 mg PO BID, Glimepiride 4 mg PO BID The patient's discharge medication list was reviewed for discrepancies and discrepancies were resolved. The patient was counseled on the following discharge medications and changes in medications for homegoing were reviewed. The Reason for Use, instructions for use, and potential side effects were reviewed for all new medications. The patient's questions regarding all of their medications were answered. - The patient still has questions about what all Home Health will be monitoring and checking during their visits. He had no further medication questions at this time. The patient was able to verbally demonstrate an understanding of their discharge medications. Medications at Discharge Home Medications amlodipine 5 mg tablet 5 mg PO DAILY blood pressure 06/22/25 atorvastatin 40 mg tablet 40 mg PO DAILY cholesterol 06/22/25 dulaglutide 3 mg/0.5 mL subcutaneous pen injector (Trulicity) 3 mg subcut QWEEK blood sugar 06/22/25 hydrochlorothiazide 25 mg tablet 25 mg PO DAILY blood pressure 06/22/25 lisinopril 20 mg tablet 40 mg PO DAILY blood pressure 06/22/25 metoprolol succinate 100 mg tablet,extended release 24 hr 100 mg PO DAILY blood pressure 06/22/25 cefazolin 2 gram intravenous solution 2 g IV Q8H 38 days 06/28/25 doxycycline monohydrate 100 mg capsule 100 mg PO BID 38 days #76 caps 06/28/25 metronidazole 500 mg tablet 500 mg PO TID 38 days #114 tabs 06/28/25 glimepiride 4 mg tablet 4 mg PO BIDCM 30 days #60 tabs 06/29/25 metformin 1,000 mg tablet 1,000 mg PO BIDCM 30 days #60 tabs 06/29/25
[2025-06-29] MEDS: 0.9% Saline Lock 10 ML Syringe IV (14:29)
[2025-06-29 14:59] VITALS: BP 157/74; PULSE 67; RESP 18; TEMP 36.8; O2SAT 98
== END 2025-06-29 15:08 | disposition home health service (06) | DRG 317 ==
LOC: ED 13:13 → MS3 13:17
PROVIDERS: Internal Medicine; Podiatrist; Emergency Provider Emergency Medicine; PCP Family Medicine; Visit Provider Family Medicine
DX: E11.621 Type 2 diabetes mellitus with foot ulcer (principal); M86.9 Osteomyelitis, unspecified; R78.81 Bacteremia; E87.20 Acidosis, unspecified; B95.2 Enterococcus as the cause of diseases classified elsewhere; B35.1 Tinea unguium; E11.40 Type 2 diabetes mellitus with diabetic neuropathy, unspecified; I10 Essential (primary) hypertension; E78.5 Hyperlipidemia, unspecified; L97.509 Non-pressure chronic ulcer of other part of unspecified foot with unspecified severity; Z79.4 Long term (current) use of insulin; E11.69 Type 2 diabetes mellitus with other specified complication; B95.7 Other staphylococcus as the cause of diseases classified elsewhere; L02.612 Cutaneous abscess of left foot; L03.032 Cellulitis of left toe; B95.61 Methicillin susceptible Staphylococcus aureus infection as the cause of diseases classified elsewhere; Z79.84 Long term (current) use of oral hypoglycemic drugs; Z79.85 Long-term (current) use of injectable non-insulin antidiabetic drugs; Z79.899 Other long term (current) drug therapy
CPT/HCPCS: 36415; 36569; 73630; 73720; 80048; 80202; 82565; 82962; 83036; 83605; 85025; 85610; 85652; 85730; 86140; 87040; 87070; 87075; 87077; 87149; 87186; 87205; 87640; 93306; 97802; 99284; A9575; J2185; Q9957; A4216; C8929; J0295; J2405

== ENCOUNTER 2025-07-13 10:54 | Outpatient (RCR) | payer MEDICAID, SELFPAY ==
[2025-07-06 10:29] LABS: Hematocrit 37.0 % (40-54); Hemoglobin 12.2 g/dL (13.0-16.5); Mean Corp Hgb Conc 33.0 g/dL (32-36); Mean Corpuscular Volume 90.7 fL (80-94); Mean Platelet Vol. 10.1 fl (6.2-12.0); Platelet Count 337 K/mm3 (150-450); RBC Distribution Width CV 12.8 % (11.6-14.6); RBC Distribution Width SD 41.9 fl (35.1-43.9); Red Blood Count 4.08 M/mm3 (4.6-6.2); White Blood Count 10.9 K/mm3 (4.4-11.0)
[2025-07-06 10:53] LABS: Anion Gap 14 (5-15); BUN 36 mg/dL (4-19); BUN/Creat Ratio 31.3 RATIO (10-20); Calcium,Total 9.7 mg/dL (7.6-11.0); Carbon Dioxide 23.5 mmol/L (21.0-32.0); Chloride 97 mmol/L (98-108); Glucose 207 mg/dL (70-99); Potassium 4.3 mmol/L (3.3-5.1)
[2025-07-13 12:10] LABS: Hematocrit 36.4 % (40-54); Hemoglobin 12.1 g/dL (13.0-16.5); Immature Granulocytes Count 0.030 X10^3/uL (0.0-0.0); Mean Corp Hgb Conc 33.2 g/dL (32-36); Mean Corpuscular Volume 90.5 fL (80-94); Mean Platelet Vol. 10.3 fl (6.2-12.0); NRBC Flagged by Analyzer 0 % (0-5); Platelet Count 273 K/mm3 (150-450); RBC Distribution Width CV 12.8 % (11.6-14.6); RBC Distribution Width SD 42.4 fl (35.1-43.9); Red Blood Count 4.02 M/mm3 (4.6-6.2); White Blood Count 9.6 K/mm3 (4.4-11.0)
[2025-07-13 13:19] LABS: Anion Gap 13 (5-15); BUN 31 mg/dL (4-19); BUN/Creat Ratio 29.9 RATIO (10-20); Calcium,Total 9.6 mg/dL (7.6-11.0); Carbon Dioxide 23.3 mmol/L (21.0-32.0); Chloride 101 mmol/L (98-108); Ferritin 347 ng/mL (37-417); Glucose 155 mg/dL (70-99); Iron 49 ug/dL (65-175); Iron Binding Capacity,Total 248 ug/dL (250-450); Iron Binding Capacity,Unsat 199 ug/dL (228-428); Potassium 4.6 mmol/L (3.3-5.1); Vitamin B12 342 pg/mL (180-914)
[2025-07-13 13:25] LABS: FOLATES,SERUM (FOLIC ACID) 12.90 ng/mL (4.60-34.80)
== END 2025-07-18 23:59 ==
LOC: LABSPEC 10:54
PROVIDERS: PCP Family Medicine; Referring Provider Internal Medicine Infectious Disease; Visit Provider Internal Medicine Infectious Disease
DX: E11.69 Type 2 diabetes mellitus with other specified complication (principal); R78.81 Bacteremia; A49.01 Methicillin susceptible Staphylococcus aureus infection, unspecified site
CPT/HCPCS: 80048; 82607; 82728; 82746; 83540; 83550; 85025; 85027; 85652

== ENCOUNTER → 2025-07-27 | Outpatient (CLI) | payer MEDICAID, SELFPAY ==
[2025-07-27 13:40] LABS: Hematocrit 34.0 % (40-54); Hemoglobin 11.0 g/dL (13.0-16.5); Mean Corp Hgb Conc 32.4 g/dL (32-36); Mean Corpuscular Volume 91.6 fL (80-94); Mean Platelet Vol. 10.5 fl (6.2-12.0); Platelet Count 261 K/mm3 (150-450); RBC Distribution Width CV 13.2 % (11.6-14.6); RBC Distribution Width SD 44.6 fl (35.1-43.9); Red Blood Count 3.71 M/mm3 (4.6-6.2); White Blood Count 8.9 K/mm3 (4.4-11.0)
[2025-07-27 14:27] LABS: Anion Gap 17 (5-15); BUN 41 mg/dL (4-19); BUN/Creat Ratio 30.7 RATIO (10-20); Calcium,Total 9.2 mg/dL (7.6-11.0); Carbon Dioxide 21.3 mmol/L (21.0-32.0); Chloride 100 mmol/L (98-108); Glucose 248 mg/dL (70-99); Potassium 4.4 mmol/L (3.3-5.1)
== END | disposition home or self-care (01) ==
LOC: LABSPEC 11:25
PROVIDERS: PCP Family Medicine; Visit Provider Internal Medicine Infectious Disease
DX: R78.81 Bacteremia (principal); B95.61 Methicillin susceptible Staphylococcus aureus infection as the cause of diseases classified elsewhere
CPT/HCPCS: 80048; 85027; 85652

== ENCOUNTER 2025-08-03 11:26 | Outpatient (RCR) | payer MEDICAID, SELFPAY ==
[2025-07-20 13:19] LABS: Hematocrit 34.8 % (40-54); Hemoglobin 11.4 g/dL (13.0-16.5); Mean Corp Hgb Conc 32.8 g/dL (32-36); Mean Corpuscular Volume 91.1 fL (80-94); Mean Platelet Vol. 10.7 fl (6.2-12.0); Platelet Count 224 K/mm3 (150-450); RBC Distribution Width CV 13.0 % (11.6-14.6); RBC Distribution Width SD 42.9 fl (35.1-43.9); Red Blood Count 3.82 M/mm3 (4.6-6.2); White Blood Count 9.8 K/mm3 (4.4-11.0)
[2025-07-20 13:42] LABS: Anion Gap 14 (5-15); BUN 31 mg/dL (4-19); BUN/Creat Ratio 26.4 RATIO (10-20); Calcium,Total 9.5 mg/dL (7.6-11.0); Carbon Dioxide 23.1 mmol/L (21.0-32.0); Chloride 99 mmol/L (98-108); Glucose 179 mg/dL (70-99); Potassium 4.6 mmol/L (3.3-5.1)
[2025-08-03 11:45] LABS: Hematocrit 33.1 % (40-54); Hemoglobin 11.0 g/dL (13.0-16.5); Mean Corp Hgb Conc 33.2 g/dL (32-36); Mean Corpuscular Volume 89.7 fL (80-94); Mean Platelet Vol. 10.2 fl (6.2-12.0); Platelet Count 262 K/mm3 (150-450); RBC Distribution Width CV 13.3 % (11.6-14.6); RBC Distribution Width SD 43.4 fl (35.1-43.9); Red Blood Count 3.69 M/mm3 (4.6-6.2); White Blood Count 9.2 K/mm3 (4.4-11.0)
[2025-08-03 12:53] LABS: Anion Gap 14 (5-15); BUN 45 mg/dL (4-19); BUN/Creat Ratio 35.9 RATIO (10-20); Calcium,Total 9.4 mg/dL (7.6-11.0); Carbon Dioxide 20.1 mmol/L (21.0-32.0); Chloride 103 mmol/L (98-108); Glucose 222 mg/dL (70-99); Potassium 4.7 mmol/L (3.3-5.1)
== END 2025-08-17 18:00 | disposition home or self-care (01) ==
LOC: HHLAB 11:26
PROVIDERS: PCP Family Medicine; Referring Provider Internal Medicine Infectious Disease; Visit Provider Internal Medicine Infectious Disease
DX: E11.69 Type 2 diabetes mellitus with other specified complication (principal)
CPT/HCPCS: 80048; 85027; 85652